=== PATIENT | female | born 1935 | race Caucasian/White ===

== ENCOUNTER → 2016-06-27 | Outpatient (CLI) | payer OTHER ==
[~2016-06-27] MED LIST: ASPEC81 PO; ATEN-173 PO; CALC500C70 PO; LISI-729 PO; MULT-614 PO; PRED1SUS3 OPL; SIMV40TA2 PO
--- NOTE | 2016-06-27 12:43 | MAMMOGRAPHY REPORT ---
BILATERAL DIGITAL SCREENING MAMMOGRAM WITH CAD: 06/27/2016 CLINICAL HISTORY: Routine screening. Patient has no complaints. TECHNIQUE: Current study was also evaluated with a Computer Aided Detection (CAD) system. Bilatera l CC and MLO views were obtained. COMPARISON: Comparison is made to exams dated: 06/25/2015 mammogram, 06/22/2013 mammogram, and 015 mammogram - [facility]. BREAST COMPOSITION: There are scattered areas of fibroglandular density in both breasts. FINDINGS: No suspicious masses, calcifications, or areas of architectural distortion are noted in e ither breast. There has been no significant interval change compared to prior exams. IMPRESSION: ACR BI-RADS CATEGORY 1: NEGATIVE There is no mammographic evidence of malignancy. A 1 year screening mammogram is recommended. The p atient will receive written notification of the results. Approximately 10% of breast cancers are not detected with mammography. A negative mammographic repor t should not delay biopsy if a clinically suggestive mass is present. Mady Peralta M.D. ah/:06/27/2016 11:57:51 Biomedical Equipment Technician: Jennifer GARCIA(R)(M), [facility] letter sent: Normal 1/2 BI-RADS Code: ACR BI-RADS Category 1: Negative
== END | disposition home or self-care (01) ==
LOC: C.MAMM 09:02
PROVIDERS: ATTEND Internal Medicine
DX: Z12.31 Encounter for screening mammogram for malignant neoplasm of breast (principal)

== ENCOUNTER → 2016-11-14 | Outpatient (CLI) | payer OTHER ==
[~2016-11-14] MED LIST changes: +AMOX875T PO; +ASPI81TA21 PO; +DIPH1TAB87 PO; +EYED OPB; +IBUP-1050 PO; +LPT40 PO; +PROP1DRO2 OPB
== END | disposition home or self-care (01) ==
LOC: C.LABBFT 08:44
PROVIDERS: ATTEND Internal Medicine Cardiovascular Disease
DX: E78.00 Pure hypercholesterolemia, unspecified (principal)

== ENCOUNTER 2017-03-18 21:37 | Observation (INO) | payer OTHER ==
[~2017-03-18] VITALS: Ht 175.3 cm; Wt 67.4 kg
[~2017-03-18 21:37] MED LIST changes: -AMOX875T PO; -ASPI81TA21 PO; -DIPH1TAB87 PO; -EYED OPB; -IBUP-1050 PO; -LPT40 PO; -PROP1DRO2 OPB
[2017-03-18] MEDS ORDERED: IBUP-1050 PO (22:29)
[2017-03-18] MEDS ORDERED: DIPH1TAB PO (22:29)
[2017-03-18] MEDS ORDERED: ASPI81TA21 PO (22:29)
[2017-03-18] MEDS ORDERED: EYED OPB (22:29)
[2017-03-18] MEDS ORDERED: LIDOCAINE/EPINEPH/TETRACAINE 1 EA SYR EXT STA (22:34)
[2017-03-18] MEDS ORDERED: XYLOCAINE 1%/SOD BICARB 20 ML VIAL INFIL ONE (22:45)
--- NOTE | 2017-03-18 22:47 | EMERGENCY ROOM VISIT NOTE ---
History Report prepared by Makeda: Cornel Hernandez Under the Supervision of: Dr. Robb Baird M.D. First contact with patient: 22:19 Chief Complaint: FALL Stated Complaint: FELL, BRUISING ON FACE History of Present Illness The patient is a 82 year old female who presents to the Emergency Room with complaints of face pain that began 2 hours ago. Per the patient's family, they were there visiting her this evening and notes that the patient was at her baseline. After they left at 1999, they got home and got a call from the patient stating that she did not remember what happened, but she fell onto her face and she was "covered in blood". She notes some diarrhea earlier today, but it was only describes as mildly loose stool. She is having some mild weakness and aches to her legs, but no major weakness. The patient states that she has no recollection of the fall. She denies any neck pain, dental pain, chest pain, pain with breathing, abdominal pain, back pain, urinary symptoms, or any other symptoms. She is not on blood thinners. She denies any history of cardiac disease or other falls. She denies blurry or double vision. Source of History: patient, family Onset: 2.5 hours ago Position: head Symptom Intensity: moderate Quality: ache Timing: constant Associated Symptoms: + diarrhea, + weakness (Mild bilateral legs), No neck pain, No chest pain, No SOB, No abdominal pain, No back pain, No melena, No hematochezia, No urinary symptoms Review of Systems See HPI for pertinent positives & negatives. A total of 10 systems reviewed and were otherwise negative. Past Medical & Surgical Medical Problems: (1) Borderline hypertension (2) Vertigo Surgical Problems: (1) History of cataract surgery Old medical records were reviewed. Nurse's notes were reviewed and I agree with. Family History Omitted secondary to the patient's age. Social History Smoking Status: Never Smoker Smokeless Tobacco Use: No Drug Use: none Marital Status: Housing Status: lives alone Occupation Status: retired Current/Historical Medications Scheduled Aspirin Enteric Coated (Ecotrin Or Generic), 81 MG PO QAM Atenolol (Tenormin), 25 MG PO QAM Calcium/Vitamin D (Os-Matt 500 Plus D), 1 TAB PO BID Diphenhydramine Hcl (Benadryl Allergy), 50 MG PO HS Eye Drops (Eye Drops), 1 DROP OPB BID Ibuprofen (Advil), 400 MG PO BID Lisinopril (Prinivil), 5 MG PO QAM Multiple Vitamins W/ Minerals (Centrum Silver Ultra Wome), 1 TAB PO QAM Simvastatin (Zocor), 40 MG PO QPM Allergies Coded Allergies: No Known Allergies (Unverified , 03/18/17) Physical Exam Vital Signs Date Time Temp Pulse Resp B/P (MAP) Pulse Ox O2 Delivery O2 Flow Rate FiO2 03/19/17 00:01 70 16 127/76 98 Room Air 03/18/17 21:46 36.4 74 20 118/51 98 Room Air Physical Exam General: Non-ill appearing older female in no acute distress who has a laceration to the left eyebrow and bruising under the left eye. HEENT: Normal cephalic. Pupils are equal round and reactive to light. Extraocular movements are intact. Bruising under the left eye, no hyphema, no inferior orbital entrapments. No proptosis. Oropharynx is pink with moist mucous membranes. No swelling of the mouth lips or tongue. Neck: Supple with a midline trachea. No meningeal signs or stiffness, no JVD or bruits. No Stridor. Chest: Clear to auscultation bilaterally. No wheezes or rhonchi. No increased work of breathing. Heart: regular rate and rhythm. Abdomen: Soft nontender, nondistended without rebound guarding or rigidity. Extremities: No cyanosis clubbing or edema. No calf tenderness or assymetry Spine/Back. Non tender to palpation. No CVA tenderness Skin: Good turgor without rashes. Neurologic exam: GCS 15. Cranial nerves two through 12 are intact. Motor and sensation are intact and symmetrical throughout. Medical Decision & Procedures ER Provider Diagnostic Interpretation: Radiology results as stated below per my review and radiologist interpretation: MAXILLOFACIAL CT WITHOUT CONTRAST CLINICAL HISTORY: Fall. COMPARISON STUDY: None. TECHNIQUE: A maxillofacial CT was performed without IV contrast. Coronal and sagittal reformats were viewed. A dose lowering technique was utilized adhering to the principles of ALARA. FINDINGS: There is moderate left orbital gas. There is no significant retrobulbar hematoma and the globes are intact. Intraorbital contusion is noted. There is hemorrhage within the left maxillary sinus. Comminuted, mildly displaced fracture of the left orbital floor is noted. No herniation of orbital contents is noted. There is no mandibular fracture. There is an acute fracture of the left zygomatic arch which is displaced 5 mm. Mildly displaced comminuted fractures of the lateral and medial nevarez of the left orbit are noted as well as fractures of the anterior, posterior and medial nevarez of the left maxillary sinus. The pterygoid plates are intact. Cervical spine CT will be reported separately. There is no hydrocephalus. IMPRESSION: Extensive left orbital trauma, including moderate orbital gas with no significant retrobulbar hematoma. Globe intact. Mildly displaced, comminuted left orbital floor fracture with displaced fractures of the medial and lateral nevarez of the left orbit, anterior, posterior and medial nevarez of the left maxillary sinus as well as fractures of the left zygomatic arch and left nasal bone. Electronically signed by: Minesh Weems M.D. 03/18/2017 11:17 PM Dictated Date/Time: 03/18/2017 11:[address] OF THE HEAD WITHOUT CONTRAST CLINICAL HISTORY: Fall. COMPARISON STUDY: No previous studies for comparison. TECHNIQUE: Helical axial images of the head were obtained without IV contrast. Automated exposure control was utilized for the study. A dose lowering technique was utilized adhering to the principles of ALARA. FINDINGS: No acute intracranial hemorrhage, midline shift or mass effect is present. Prominence of the extra-axial spaces is likely due to atrophy. Ventricular system is unremarkable. Basilar cisterns are patent. Hemorrhage within the left maxillary sinus is noted. There is extensive left orbital trauma with orbital gas. The left globe is intact. Left orbital floor fracture is noted. In addition, there is a fracture of the left zygomatic arch, the medial wall and lateral nevarez of the left orbit as well as the anterior, posterior and medial nevarez of the left maxillary sinus. These findings are better depicted on the maxillofacial CT. There is no calvarial fracture. IMPRESSION: 1. No acute intracranial findings. 2. No calvarial fracture. 3. Extensive left orbital trauma with orbital gas and multiple left-sided facial fractures which are better depicted on the maxillofacial CT. Please see that report for further description. Electronically signed by: Minesh Weems M.D. 03/18/2017 11:21 PM Dictated Date/Time: 03/18/2017 11:06 PM CHEST ONE VIEW PORTABLE CLINICAL HISTORY: Fall. Chest pain. COMPARISON STUDY: Chest radiograph December 30, 2010. FINDINGS: Evaluation is compromised as the patient's hands overlie the lower chest. No pneumothorax or pleural effusion is identified. Cardiomediastinal silhouette is unremarkable. No lobar consolidation is present. There is no evidence of pulmonary edema. IMPRESSION: No acute cardiopulmonary findings although evaluation of the left lower chest is compromised given patient's overlying hand. Electronically signed by: Minesh Weems M.D. 03/18/2017 11:04 PM Dictated Date/Time: 03/18/2017 11:[address] OF THE CERVICAL SPINE WITHOUT CONTRAST CLINICAL HISTORY: Fall. COMPARISON STUDY: No previous studies for comparison. TECHNIQUE: Helical axial images of the cervical spine were obtained without IV contrast. Sagittal and coronal reconstructions were viewed. A dose lowering technique was utilized adhering to the principles of ALARA. FINDINGS: Alignment of the cervical spine is anatomic. Craniocervical junction is intact. There is no prevertebral edema. There is no acute cervical spine fracture. Biapical opacities within the lungs suggest scarring. Moderate multilevel degenerative disc disease is present. There is moderate multilevel facet arthrosis. IMPRESSION: No acute cervical spine fracture or subluxation. Electronically signed by: Minesh Weems M.D. 03/18/2017 11:24 PM Dictated Date/Time: 03/18/2017 11:21 PM Laboratory Results 03/18/17 23:05 Red Blood Count 4.00, Mean Corpuscular Volume 97.3, Mean Corpuscular Hemoglobin 31.5, Mean Corpuscular Hemoglobin Concent 32.4, Mean Platelet Volume 9.7, Neutrophils (%) (Auto) 82.3, Lymphocytes (%) (Auto) 8.9, Monocytes (%) (Auto) 7.7, Eosinophils (%) (Auto) 0.7, Basophils (%) (Auto) 0.1, Neutrophils # (Auto) 11.08, Lymphocytes # (Auto) 1.19, Monocytes # (Auto) 1.03, Eosinophils # (Auto) 0.09, Basophils # (Auto) 0.01 03/18/17 23:05 Test 03/18/17 23:05 03/19/17 00:53 White Blood Count 13.44 K/uL (4.8-10.8) Red Blood Count 4.00 M/uL (4.2-5.4) Hemoglobin 12.6 g/dL (12.0-16.0) Hematocrit 38.9 % (37-47) Mean Corpuscular Volume 97.3 fL (80-100) Mean Corpuscular Hemoglobin 31.5 pg (25-34) Mean Corpuscular Hemoglobin Concent 32.4 g/dl (32-36) Platelet Count 261 K/uL (130-400) Mean Platelet Volume 9.7 fL (7.4-10.4) Neutrophils (%) (Auto) 82.3 % Lymphocytes (%) (Auto) 8.9 % Monocytes (%) (Auto) 7.7 % Eosinophils (%) (Auto) 0.7 % Basophils (%) (Auto) 0.1 % Neutrophils # (Auto) 11.08 K/uL (1.4-6.5) Lymphocytes # (Auto) 1.19 K/uL (1.2-3.4) Monocytes # (Auto) 1.03 K/uL (0.11-0.59) Eosinophils # (Auto) 0.09 K/uL (0-0.5) Basophils # (Auto) 0.01 K/uL (0-0.2) RDW Standard Deviation 44.5 fL (36.4-46.3) RDW Coefficient of Variation 12.5 % (11.5-14.5) Immature Granulocyte % (Auto) 0.3 % Immature Granulocyte # (Auto) 0.04 K/uL (0.00-0.02) Anion Gap 10.0 mmol/L (3-11) Est Creatinine Clear Calc Drug Dose 52.3 ml/min Estimated GFR () 71.9 Estimated GFR (Non- 62.1 BUN/Creatinine Ratio 25.4 (10-20) Calcium Level 9.6 mg/dl (8.5-10.1) Total Bilirubin 0.7 mg/dl (0.2-1) Direct Bilirubin 0.1 mg/dl (0-0.2) Aspartate Amino Transf (AST/SGOT) 21 U/L (15-37) Alanine Aminotransferase (ALT/SGPT) 23 U/L (12-78) Alkaline Phosphatase 26 U/L (45-117) Total Protein 7.5 gm/dl (6.4-8.2) Albumin 3.6 gm/dl (3.4-5.0) Lipase 175 U/L (73-393) Laboratory studies as stated above per my review. Medications Administered Medications (Trade) Dose Ordered Sig/Capo Route Start Time Stop Time Status Last Admin Dose Admin Tetracaine/ Epinephrine/ Lidocaine (L.e.t. Gel 4%/ 1:100/0.5%) 1 ea NOW STAT EXT 03/18/17 22:34 03/18/17 22:40 DC 03/18/17 22:34 1 EA Diphtheria/ Pertussis/Tetanus Vacc (Adacel Inj) 0.5 ml ONCE ONCE IM. 03/19/17 00:15 03/19/17 00:16 DC 03/19/17 00:19 0.5 ML ECG Indication: syncope Rate (beats per minute): 70 Rhythm: normal sinus Findings: nonspecific-ST abn, other (Nonspecific t-wave abnormality) ED Course 2218: Past medical records reviewed. The patient was evaluated in room C12B, and a complete history and physical examination were performed. 4: Ordered Tetracaine/Epinephrine/Lidocaine 1 ea EXT 2245: Ordered Lidocaine HCl 20 ml INFIL 0000: Upon reevaluation, the patient is resting. I discussed the results and treatment plan with the patient. She verbalized agreement of the treatment plan. The patient will be evaluated for further management. 0020: Amor Banegas PA-C completed her laceration repair. Please see his note for more information. Medical Decision Differentials include, but are not limited to; concussion, head injury, syncope , cardiac disease, arrhythmia, laceration, ICH, and electrolyte or metabolic abnormality. This patient comes in as described above she had an episode where she had syncope and hit her face. She does not recall anything about the episode she has a large hematoma under her left eye. The eye itself looks okay there is no proptosis. There is a round pupil. There is no hyphema . She denies any visual complaints. There is intact ocular movements. There is nothing clinically to suggest inferior orbital rectus entrapment. Multiple blood testing was obtained. CAT scan of her head neck and face were obtained. There are no definite acute intracranial abnormalities or cervical abnormalities. There is extensive orbital fracture on the left. I did review the findings with Dr. Tran and he felt they could follow up with her and she denied any acute treatment tonight. EKG does not show any definite acute ischemic changes. There are no significant electrolyte or metabolic abnormalities. She will be admitted for further treatment and evaluations for her syncope and facial fractures. Head Trauma GCS Score: 15 Medication Reconcilliation Current Medication List: was personally reviewed by me Blood Pressure Screening Patient's blood pressure: Normal blood pressure Blood pressure disposition: Did not require urgent referral Impression Primary Impression: Syncope Additional Impressions: Fall Orbital fracture Facial fracture Scribe Attestation The scribe's documentation has been prepared under my direction and personally reviewed by me in its entirety. I confirm that the note above accurately reflects all work, treatment, procedures, and medical decision making performed by me. Departure Information Dispostion Being Evaluated By Hospitalist Referrals Jeanmarie Elizalde M.D. (PCP) Patient Instructions My [facility] Problem Qualifiers
--- NOTE | 2017-03-18 23:06 | DIAGNOSTIC IMAGING REPORT ---
CHEST ONE VIEW PORTABLE CLINICAL HISTORY: Fall. Chest pain. COMPARISON STUDY: Chest radiograph December 30, 2010. FINDINGS: Evaluation is compromised as the patient's hands overlie the lower chest. No pneumothorax or pleural effusion is identified. Cardiomediastinal silhouette is unremarkable. No lobar consolidation is present. There is no evidence of pulmonary edema. IMPRESSION: No acute cardiopulmonary findings although evaluation of the left lower chest is compromised given patient's overlying hand. Electronically signed by: Minesh Weems M.D. 03/18/2017 11:04 PM Dictated Date/Time: 03/18/2017 11:02 PM
--- NOTE | 2017-03-18 23:18 | DIAGNOSTIC IMAGING REPORT ---
MAXILLOFACIAL CT WITHOUT CONTRAST CLINICAL HISTORY: Fall. COMPARISON STUDY: None. TECHNIQUE: A maxillofacial CT was performed without IV contrast. Coronal and sagittal reformats were viewed. A dose lowering technique was utilized adhering to the principles of ALARA. FINDINGS: There is moderate left orbital gas. There is no significant retrobulbar hematoma and the globes are intact. Intraorbital contusion is noted. There is hemorrhage within the left maxillary sinus. Comminuted, mildly displaced fracture of the left orbital floor is noted. No herniation of orbital contents is noted. There is no mandibular fracture. There is an acute fracture of the left zygomatic arch which is displaced 5 mm. Mildly displaced comminuted fractures of the lateral and medial nevarez of the left orbit are noted as well as fractures of the anterior, posterior and medial nevarez of the left maxillary sinus. The pterygoid plates are intact. Cervical spine CT will be reported separately. There is no hydrocephalus. IMPRESSION: Extensive left orbital trauma, including moderate orbital gas with no significant retrobulbar hematoma. Globe intact. Mildly displaced, comminuted left orbital floor fracture with displaced fractures of the medial and lateral nevarez of the left orbit, anterior, posterior and medial nevarez of the left maxillary sinus as well as fractures of the left zygomatic arch and left nasal bone. Electronically signed by: Minesh Weems M.D. 03/18/2017 11:17 PM Dictated Date/Time: 03/18/2017 11:09 PM
--- NOTE | 2017-03-18 23:22 | DIAGNOSTIC IMAGING REPORT ---
CT OF THE HEAD WITHOUT CONTRAST CLINICAL HISTORY: Fall. COMPARISON STUDY: No previous studies for comparison. TECHNIQUE: Helical axial images of the head were obtained without IV contrast. Automated exposure control was utilized for the study. A dose lowering technique was utilized adhering to the principles of ALARA. FINDINGS: No acute intracranial hemorrhage, midline shift or mass effect is present. Prominence of the extra-axial spaces is likely due to atrophy. Ventricular system is unremarkable. Basilar cisterns are patent. Hemorrhage within the left maxillary sinus is noted. There is extensive left orbital trauma with orbital gas. The left globe is intact. Left orbital floor fracture is noted. In addition, there is a fracture of the left zygomatic arch, the medial wall and lateral nevarez of the left orbit as well as the anterior, posterior and medial nevarez of the left maxillary sinus. These findings are better depicted on the maxillofacial CT. There is no calvarial fracture. IMPRESSION: 1. No acute intracranial findings. 2. No calvarial fracture. 3. Extensive left orbital trauma with orbital gas and multiple left-sided facial fractures which are better depicted on the maxillofacial CT. Please see that report for further description. Electronically signed by: Minesh Weems M.D. 03/18/2017 11:21 PM Dictated Date/Time: 03/18/2017 11:06 PM
--- NOTE | 2017-03-18 23:26 | DIAGNOSTIC IMAGING REPORT ---
CT OF THE CERVICAL SPINE WITHOUT CONTRAST CLINICAL HISTORY: Fall. COMPARISON STUDY: No previous studies for comparison. TECHNIQUE: Helical axial images of the cervical spine were obtained without IV contrast. Sagittal and coronal reconstructions were viewed. A dose lowering technique was utilized adhering to the principles of ALARA. FINDINGS: Alignment of the cervical spine is anatomic. Craniocervical junction is intact. There is no prevertebral edema. There is no acute cervical spine fracture. Biapical opacities within the lungs suggest scarring. Moderate multilevel degenerative disc disease is present. There is moderate multilevel facet arthrosis. IMPRESSION: No acute cervical spine fracture or subluxation. Electronically signed by: Minesh Weems M.D. 03/18/2017 11:24 PM Dictated Date/Time: 03/18/2017 11:21 PM
[2017-03-18 23:35] LABS: BASO % 0.1 %; BASO ABS # 0.01 K/uL (0-0.2); COMPLETE YES; EOS % 0.7 %; HEMATOCRIT 38.9 % (37-47); IG% 0.3 %; LYMPH % 8.9 %; LYMPH ABS # 1.19 K/uL (1.2-3.4); MEAN CELL VOLUME 97.3 fL (80-100); MEAN CORPUSCULAR HEMOGLOBIN 31.5 pg (25-34); MEAN CORPUSCULAR HGB CONC 32.4 g/dl (32-36); MEAN PLATELET VOLUME 9.7 fL (7.4-10.4); MONO % 7.7 %; NEUT % 82.3 %; PLATELET COUNT 261 K/uL (130-400); WHITE BLOOD COUNT 13.44 K/uL (4.8-10.8)
[2017-03-18 23:54] LABS: BUN/CREATININE RATIO 25.4 (10-20); CALCIUM 9.6 mg/dl (8.5-10.1); CREATININE 0.88 mg/dl (0.60-1.20); POTASSIUM 3.9 mmol/L (3.5-5.1)
[2017-03-19] VITALS (8 sets, daily range): BP systolic 110–152; BP diastolic 60–78; PULSE 58–80; TEMP 36.6–36.9; O2SAT 95–99; Ht 175.3 cm; Wt 67.4 kg
[2017-03-19] MEDS ORDERED: DIPHTHERIA/TETANUS/PERTUSSIS 0.5 ML SYR/VIAL IM. ONE (00:15)
--- NOTE | 2017-03-19 00:28 | History and Physical ---
History & Physical Date & Time of Service: Mar 19, 2017 at 00:23 Chief Complaint: Fell, Bruising On Face Primary Care Physician: Jeanmarie Elizalde M.D. History of Present Illness Source: patient 82 y/o F Hx HTN, HPL - was in her normal state of health today per family who had left her house at 8pm. Shortly after, they received a call from the pt indicating that she had probably passed out and landed directly on her face. Her face was covered with blood and she had significant pain and bruising around her L orbit. She had no recollection of what transpired prior to finding herself on the floor. On arrival to the ER a CT head revealed displaced, comminuted left orbital floor fracture with displaced fractures of the medial and lateral nevarez of the left orbit, anterior, posterior and medial nevarez of the left maxillary sinus as well as fractures of the left zygomatic arch and left nasal bone. She denies CP, SOB, N/V or dysuria. She has no prior history of syncope or significant arrhythmias. She was placed on Atenolol by her chain builder loom control due to frequent PVCs and palpitations. Past Medical/Surgical History Medical Problems: (1) Borderline hypertension Status: Chronic (2) Vertigo Status: Chronic 3) Hyperlipidemia 4) Frequent PVCs - complaints of palpitations Surgical Problems: (1) History of cataract surgery Status: Resolved Family History Noncontributory Social History Smoking Status: Never Smoker Smokeless Tobacco Use: No Drug Use: none Marital Status: Occupational Status: retired Multi-Drug Resistant Organisms History of MDRO: No Allergies Coded Allergies: No Known Allergies (Unverified , 03/18/17) Home Medications Scheduled Aspirin Enteric Coated (Ecotrin Or Generic), 81 MG PO QAM Atenolol (Tenormin), 25 MG PO QAM Calcium/Vitamin D (Os-Matt 500 Plus D), 1 TAB PO BID Diphenhydramine Hcl (Benadryl Allergy), 50 MG PO HS Eye Drops (Eye Drops), 1 DROP OPB BID Ibuprofen (Advil), 400 MG PO BID Lisinopril (Prinivil), 5 MG PO QAM Multiple Vitamins W/ Minerals (Centrum Silver Ultra Wome), 1 TAB PO QAM Simvastatin (Zocor), 40 MG PO QPM Review of Systems Constitutional: No fever, No chills, No sweats Eyes: No worsening of vision ENT: + problem reported (Facial pain as above - L periorbital bruising), No hearing loss, No unusual epistaxis Respiratory: No cough, No sputum, No wheezing Cardiovascular: No chest pain, No orthopnea, No PND Musculoskeletal: No joint pain Genitourinary - Female: No dysuria, No urinary frequency, No urinary urgency Neurologic: No memory loss, No paralysis, No weakness Psychiatric: No depression symptoms Endocrine: No fatigue Hematologic / Lymphatic: No abnormal bleeding/bruising Integumentary: No rash Allergic / Immunologic: No environmental allergies Physical Exam Vital Signs Date Time Temp Pulse Resp B/P (MAP) Pulse Ox O2 Delivery O2 Flow Rate FiO2 03/19/17 00:01 70 16 127/76 98 Room Air 03/18/17 21:46 36.4 74 20 118/51 98 Room Air General Appearance: WD/WN, no apparent distress Head: normocephalic Eyes: normal inspection, EOMI ENT: pharynx normal, + pertinent finding (Extensive L periorbital bruising - laceration below L orbit is stitched ) Neck: supple, no JVD Respiratory/Chest: chest non-tender, lungs clear, normal breath sounds Cardiovascular: regular rate, rhythm, no edema, no gallop, no JVD, no murmur, normal peripheral pulses Abdomen/GI: normal bowel sounds, non tender, soft Back: normal inspection, no CVA tenderness, no muscle spasm, normal range of motion Extremities/Musculoskelatal: normal inspection, no calf tenderness, normal capillary refill, no pedal edema, normal range of motion Neurologic/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: 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, no motor/sensory deficits, alert, oriented x 3 Skin: normal color, warm/dry Diagnostics Laboratory Results Results Past 24 Hours Test 03/18/17 23:05 Range/Units White Blood Count 13.44 4.8-10.8 K/uL Red Blood Count 4.00 4.2-5.4 M/uL Hemoglobin 12.6 12.0-16.0 g/dL Hematocrit 38.9 37-47 % Mean Corpuscular Volume 97.3 80-100 fL Mean Corpuscular Hemoglobin 31.5 25-34 pg Mean Corpuscular Hemoglobin Concent 32.4 32-36 g/dl Platelet Count 261 130-400 K/uL Mean Platelet Volume 9.7 7.4-10.4 fL Neutrophils (%) (Auto) 82.3 % Lymphocytes (%) (Auto) 8.9 % Monocytes (%) (Auto) 7.7 % Eosinophils (%) (Auto) 0.7 % Basophils (%) (Auto) 0.1 % Neutrophils # (Auto) 11.08 1.4-6.5 K/uL Lymphocytes # (Auto) 1.19 1.2-3.4 K/uL Monocytes # (Auto) 1.03 0.11-0.59 K/uL Eosinophils # (Auto) 0.09 0-0.5 K/uL Basophils # (Auto) 0.01 0-0.2 K/uL RDW Standard Deviation 44.5 36.4-46.3 fL RDW Coefficient of Variation 12.5 11.5-14.5 % Immature Granulocyte % (Auto) 0.3 % Immature Granulocyte # (Auto) 0.04 0.00-0.02 K/uL Sodium Level 140 136-145 mmol/L Potassium Level 3.9 3.5-5.1 mmol/L Chloride Level 102 98-107 mmol/L Carbon Dioxide Level 28 21-32 mmol/L Anion Gap 10.0 3-11 mmol/L Blood Urea Nitrogen 22 7-18 mg/dl Creatinine 0.88 0.60-1.20 mg/dl Est Creatinine Clear Calc Drug Dose 52.3 ml/min Estimated GFR () 71.9 Estimated GFR (Non- 62.1 BUN/Creatinine Ratio 25.4 10-20 Random Glucose 151 70-99 mg/dl Calcium Level 9.6 8.5-10.1 mg/dl Total Bilirubin 0.7 0.2-1 mg/dl Direct Bilirubin 0.1 0-0.2 mg/dl Aspartate Amino Transf (AST/SGOT) 21 15-37 U/L Alanine Aminotransferase (ALT/SGPT) 23 12-78 U/L Alkaline Phosphatase 26 45-117 U/L Total Protein 7.5 6.4-8.2 gm/dl Albumin 3.6 3.4-5.0 gm/dl Lipase 175 73-393 U/L Diagnostic Radiology CT cervical spine: No acute cervical spine fracture or subluxation. CT head: 1. No acute intracranial findings. 2. No calvarial fracture. 3. Extensive left orbital trauma with orbital gas and multiple left-sided facial fractures. CT Maxillofacial: Extensive left orbital trauma, including moderate orbital gas with no significant retrobulbar hematoma. Globe intact. Mildly displaced, comminuted left orbital floor fracture with displaced fractures of the medial and lateral nevarez of the left orbit, anterior, posterior and medial nevarez of the left maxillary sinus as well as fractures of the left zygomatic arch and left nasal bone. Impression Assessment and Plan 82 y/o F Hx HTN, HPL - was in her normal state of health today per family who had left her house at 8pm. Shortly after, they received a call from the pt indicating that she had probably passed out and landed directly on her face. Her face was covered with blood and she had significant pain and bruising around her L orbit. She had no recollection of what transpired prior to finding herself on the floor. On arrival to the ER a CT head revealed displaced, comminuted left orbital floor fracture with displaced fractures of the medial and lateral nevarez of the left orbit, anterior, posterior and medial nevarez of the left maxillary sinus as well as fractures of the left zygomatic arch and left nasal bone. She denies CP, SOB, N/V or dysuria. She has no prior history of syncope or significant arrhythmias. She was placed on Atenolol by her chain builder loom control due to frequent PVCs and palpitations. 1) Syncope - will monitor on telemetry, will order a troponin as this may indicate a ventricular arrhythmia if elevated. As she has no recollection of syncope and did not apparently have any preceding symptoms, she may benefit from an ambulatory monitor and we should likely contact her chain builder loom control prior to DC. Cont Atenolol. 2) Head trauma and facial/orbital fractures. Er MD had consulted surgery to review imaging. She is unlikely to require intervention. We will consult maxillofacial surgery AM. 3) HTN, HPL - Cont Atenolol, Lisinopril, Statin - The pt's CT was referred to both in house radiology and the [facility] service - there is a discrepancy between the 2 studies and on the [facility] read there is concern for a small subdural hematoma - we will obtain a repeat CT AM to clarify and insure there is no expansion taking place. Full code - SCDs Total time for this admit including review of labs, meds, records - discussion with pt , family , ER attending - 35 min Level of Care Telemetry Resuscitation Status FULL RESUSCITATION VTE Prophylaxis Given or contraindicated: SCD's
--- NOTE | 2017-03-19 00:53 | EMERGENCY ROOM VISIT NOTE ---
ED Visit Note Emergency Department Procedure Note I was asked to see Mr. Snow by Dr. Robb Baird, emergency medicine, for repair of a left eyebrow laceration she sustained in a fall. Please see Dr. Baird's notes and orders for full information about her ED visit. Wound Repair: Complexity: Basic Description: 2.8 cm full-thickness laceration through the left upper eyebrow. No active bleeding. Verbal consent was obtained after the risks and benefits were explained. Wound edges were anesthetized with LET gel. The skin was prepped with betadine and a sterile field set. The wound was explored for foreign bodies and none found. Copious irrigation was performed using sterile saline. With direct pressure the bleeding subsided. Debridement was not performed. The wound edges were approximated using 6-0 Ethilon with 8 simple interrupted sutures. Hemostasis and excellent approximation was achieved. Antibacterial ointment and a sterile dressing applied. No complications and the patient tolerated the procedure well.
[2017-03-19] MEDS ORDERED: ALUMINUM/MAGNESIUM/SIMETH (MAALOX MAX) 30 ML UDC PO PRN (01:00)
[2017-03-19] MEDS ORDERED: NSS + 20MEQ KCL 1000ML 1,000 ML IV SCH (01:00)
[2017-03-19] MEDS ORDERED: ONDANSETRON INJ 2 MG/ML 2 ML VIAL IV PRN (01:00)
[2017-03-19] MEDS ORDERED: MAGNESIUM HYDROXIDE SUSP 30 ML UDC PO PRN (01:00)
[2017-03-19] MEDS ORDERED: ACETAMINOPHEN 325 MG TAB PO PRN (01:00)
[2017-03-19] MEDS ORDERED: POLYETHYLENE (MIRALAX) 17 GM PACK PO PRN (01:00)
[2017-03-19 02:54] LABS: MAGNESIUM 1.9 mg/dl (1.8-2.4)
[2017-03-19] MEDS ORDERED: IV FLUIDS COMPLETED PRN (05:15)
--- NOTE | 2017-03-19 08:01 | DIAGNOSTIC IMAGING REPORT ---
CT HEAD WITHOUT CONTRAST (CT) CLINICAL HISTORY: Subdural hematoma. Follow-up examination. COMPARISON STUDY: 03/18/2017 TECHNIQUE: Axial CT of the brain is performed from the vertex to the skull base. IV contrast was not administered for this examination. A dose lowering technique was utilized adhering to the principles of ALARA. CT DOSE: 537.48 mGy.cm FINDINGS: No intra or extra-axial mass lesions are visualized. There is no CT evidence of acute cortical infarction. There is no evidence of midline shift. There is no acute hemorrhage. There is asymmetric extra-axial space similar to the preceding study. While likely secondary to atrophy, a chronic subdural hygroma could appear similar. There are patchy white matter hypodensities likely on a small vessel basis. There is no evidence of pathologic ventricular dilatation. There is opacification of the left maxilla sinus. Multiple left maxilla sinus fractures are visualized. There is a left zygomatic arch fracture. There is a left orbital floor fracture. 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 IMPRESSION: 1. No acute intracranial findings 2. Left-sided facial fractures with opacification of the left maxillary sinus, left orbital floor fracture, fractures of the zygomatic arch, lateral wall the left orbit, and anterior and lateral nvearez of left maxillary sinus. Electronically signed by: Gary Hughes M.D. 03/19/2017 8:00 AM Dictated Date/Time: 03/19/2017 7:56 AM
--- NOTE | 2017-03-19 08:41 | ECHOCARDIOGRAM REPORT ---
*NOTICE TO RECEIVING [employer] This information is strictly Confidential and protected under [place] law. [place] law prohibits you from making any further disclosure of this information unless further disclosure is expressly permitted by the written consent of the person to whom it pertains or is authorized by law. A general authorization for the release of medical or other information is not sufficient for this purpose. Hospital accepts no responsibility if the information is made available to any other person, INCLUDING THE PATIENT. Interpretation Summary * Name: RAUL REICH Study Date: 03/19/2017 06:57 AM BP: 110/60 mmHg * Patient Location: C.2T\S\S229\S\1 HR: 58 * : 1935 (M/d/yyyy) Gender: Female Height: 69 in * Age: 82 yrs Ethnicity: CA Weight: 143 lb * Ordering Physician: Deep Padilla * Referring Physician: Self, Referred * Performed By: Sol Gonzalez RDCS * * Reason For Study: SYNCOPE * BSA: 1.8 m2 * -- Conclusions -- * 1. Normal LV size, mild concentric LVH. * 2. Normal LV systolic function. LVEF 65-70%. No regional wall motion abnormalities. * 3. Normal RV size and function. * 4. Possible bicuspid aortic valve with mild to moderate aortic regurgitation. * 5. Mild mitral regurgitation. * 6. Grade II diastolic dysfunction. * 7. Mild pulmonary hypertension. Est PASP 40-45 mmHg. Normal estimated CVP. * 8. No prior studies for comparison. Procedure Details * A complete two-dimensional transthoracic echocardiogram was performed (2D, M-mode, Doppler and color flow Doppler). Left Ventricle * The left ventricle is grossly normal size. * There is mild concentric left ventricular hypertrophy. * Ejection Fraction = 65-70%. * No regional wall motion abnormalities noted. Right Ventricle * The right ventricle is grossly normal size. * The right ventricular systolic function is normal as assessed by tricuspid annular plane systolic excursion (TAPSE) (normal >1.5 cm). Atria * Borderline left atrial enlargement. * Borderline right atrial enlargement. * No ASD detected; PFO is not assessed. Mitral Valve * The mitral valve is grossly normal. * There is no mitral valve stenosis. * There is mild mitral regurgitation. Tricuspid Valve * The tricuspid valve is not well visualized, but is grossly normal. * There is no tricuspid stenosis. * There is trace tricuspid regurgitation. * Right ventricular systolic pressure is elevated at 40-50mmHg. Aortic Valve * The aortic valve opens well. * A bicuspid aortic valve cannot be excluded. * Mild to moderate aortic regurgitation. Pulmonic Valve * The pulmonary valve is inadequately visualized, but the Doppler data is adequate for interpretation. * There is no pulmonic valvular stenosis. * Trace pulmonic valvular regurgitation. Great Vessels * The aortic root and proximal ascending aorta are normal sized. Pericardium/Pleural * There is no pericardial effusion. Great Vessels * Normal inferior vena cava size and collapsability with sniff indicates a normal right atrial pressure of 3 mmHg Left Ventricular Diastolic Function * Diastolic dysfunction, Grade II (pseudonormalization pattern). MMode 2D Measurements and Calculations IVSd 1.2 cm IVSs 1.6 cm LVIDd 4.3 cm LVIDs 2.9 cm LVPWd 0.95 cm LVPWs 1.2 cm IVS/LVPW 1.3 FS 31.7 % EDV(Teich) 82.1 ml ESV(Teich) 32.9 ml EF(Teich) 60.0 % EDV(cubed) 78.4 ml ESV(cubed) 25.0 ml EF(cubed) 68.1 % % IVS thick 33.4 % % LVPW thick 29.2 % LV mass(C)d 157.9 grams LV mass(C)dI 88.2 grams/m\S\2 LV mass(C)s 139.6 grams LV mass(C)sI 78.0 grams/m\S\2 SV(Teich) 49.3 ml SI(Teich) 27.5 ml/m\S\2 SV(cubed) 53.4 ml SI(cubed) 29.8 ml/m\S\2 Ao root diam 2.9 cm Ao root area 6.6 cm\S\2 LA dimension 4.0 cm LA/Ao 1.4 LVAd ap4 23.6 cm\S\2 LVLd ap4 8.1 cm EDV(MOD-sp4) 60.7 ml EDV(sp4-el) 58.7 ml LVAs ap4 12.3 cm\S\2 LVLs ap4 6.1 cm ESV(MOD-sp4) 22.3 ml ESV(sp4-el) 20.9 ml EF(MOD-sp4) 63.3 % EF(sp4-el) 64.4 % LVAd ap2 24.3 cm\S\2 LVLd ap2 7.5 cm EDV(MOD-sp2) 65.1 ml EDV(sp2-el) 66.9 ml LVAs ap2 12.4 cm\S\2 LVLs ap2 5.9 cm ESV(MOD-sp2) 22.3 ml ESV(sp2-el) 22.2 ml EF(MOD-sp2) 65.7 % EF(sp2-el) 66.9 % LVLd %diff -7.80 % EDV(MOD-bp) 64.1 ml LVLs %diff -4.26 % ESV(MOD-bp) 21.6 ml EF(MOD-bp) 66.4 % SV(MOD-sp4) 38.4 ml SI(MOD-sp4) 21.4 ml/m\S\2 SV(MOD-sp2) 42.8 ml SI(MOD-sp2) 23.9 ml/m\S\2 SV(MOD-bp) 42.6 ml SI(MOD-bp) 23.8 ml/m\S\2 SV(sp4-el) 37.8 ml SI(sp4-el) 21.1 ml/m\S\2 SV(sp2-el) 44.8 ml SI(sp2-el) 25.0 ml/m\S\2 Doppler Measurements and Calculations MV E max linaa 85.9 cm/sec MV A max liana 56.8 cm/sec MV E/A 1.5 MV dec time 0.19 sec Ao V2 max 147.7 cm/sec Ao max PG 8.7 mmHg Ao max PG (full) 3.0 mmHg AI max liana 438.2 cm/sec AI max PG 76.8 mmHg AI dec slope 321.4 cm/sec\S\2 AI P1/2t 399.3 msec LV V1 max PG 5.7 mmHg LV V1 max 119.8 cm/sec TR max liana 293.3 cm/sec
[2017-03-19] MEDS ORDERED: LISINOPRIL 5 MG TAB PO SCH (09:00)
--- NOTE | 2017-03-19 12:52 | Cardiology Consultation ---
Cardiology Consultation Date of Consultation: Mar 19, 2017. Requesting Physician: Dr Padilla Reason for Consultation: Syncope Pt evaluation today including: conversation w/ patient, conversation w/ family , physical exam, lab review, review of studies History of Present Illness This is a very pleasant 82-year-old woman who is followed by Dr. Fofana in our office for valvular heart disease. She presented with an episode of syncope with facial injury. She does have a history of hypercholesterolemia, hypertension and palpitations, she has premature atrial beats. She also has aortic insufficiency and a possible bicuspid aortic valve. She has no memory of the event, she doesn't recall exactly what she was doing before she fell in her hallway but recalls that she was getting ready to go to bed. She doesn't recall whether she was going to the bathroom or coming from the bathroom, her daughter tells me that based on the arrangement of her house that she probably was coming out of the bathroom but she doesn't recall it. The only thing she remembers about the incident was waking up on the floor with no memory of hitting the floor and noting that there was a lot of blood on the floor. She then called her daughter and was brought to the emergency room. She has had no prior syncopal events, she does get momentary lightheadedness from time to time that lasts a few minutes and she does have an occasional episode of vertigo (which is the room spinning), often in bed, but she doesn't remember any of these sensations at the time of this fall. She does have a history of palpitations which have been identified as premature atrial beats, however she does not recall anything unusual about them at the time of this event. Since admission to the hospital she has felt well and has had no lightheadedness or dizziness and is not having much the way of palpitations. She has had no chest discomfort throughout this. Past Medical/Surgical History Hypercholesterolemia Hypertension Premature atrial beats Social History Smoking Status: Never Smoker History of Alcohol Use: No Review of Systems Constitutional: No fever, No weight loss, No weakness Respiratory: No cough, No wheezing, No shortness of breath, No dyspnea on exertion Cardiac: + see HPI, + palpitations, + problem reported (syncope), No chest pain , No orthopnea, No PND, No edema Abdomen: No pain, No nausea, No vomiting, No diarrhea, No GI bleeding Female : No problem reported Neurologic: No paralysis, No weakness, No numbness/tingling, No balance problems Heme: No abnormal bleeding/bruising, No clotting problems Endo: No fatigue Skin: No problem reported All Other Systems: Reviewed and Negative Allergies Coded Allergies: No Known Allergies (Unverified , 03/18/17) Medications Current Inpatient Medications Medications (Trade) Dose Ordered Sig/Capo Route Start Time Stop Time Status Last Admin Dose Admin Acetaminophen (Tylenol Tab) 650 mg Q4H PRN PO 03/19/17 01:00 04/18/17 00:59 Al Hydrox/Mg Hydrox/Simethicone (Maalox Max Susp) 15 ml Q4H PRN PO 03/19/17 01:00 04/18/17 00:59 Magnesium Hydroxide (Milk Of Magnesia Susp) 30 ml Q12H PRN PO 03/19/17 01:00 04/18/17 00:59 Ondansetron HCl (Zofran Inj) 4 mg Q6H PRN IV 03/19/17 01:00 04/18/17 00:59 Polyethylene (Miralax Powder Packet) 17 gm DAILY PRN PO 03/19/17 01:00 04/18/17 00:59 Atenolol (Tenormin Tab) 25 mg QAM PO 03/19/17 09:00 04/18/17 08:59 03/19/17 08:14 25 MG Lisinopril (Zestril Tab) 5 mg QAM PO 03/19/17 09:00 04/18/17 08:59 03/19/17 08:14 5 MG Simvastatin (Zocor Tab) 40 mg QPM PO 03/19/17 21:00 04/18/17 20:59 Miscellaneous (Iv Fluids Completed) 1 ea PRN PRN N/A 03/19/17 05:15 03/19/18 05:14 Physical Exam Vital Signs Past 12 Hours Date Time Temp Pulse Resp B/P (MAP) Pulse Ox O2 Delivery O2 Flow Rate FiO2 03/19/17 11:11 () 97 03/19/17 11:02 36.9 63 18 124/64 (84) 99 Room Air 03/19/17 08:00 Room Air 03/19/17 07:04 36.7 63 16 125/65 (85) 99 Room Air 03/19/17 04:17 36.6 58 18 110/60 (77) 99 Room Air 03/19/17 04:00 99 Room Air 03/19/17 01:22 36.9 72 18 151/65 99 Room Air Constitutional: General Apperance: heathly-appearing Level of Distress: NAD Psychiatric: Mental Status: active & alert Head: normocephalic Eyes: EOM: EOMI ENMT: normal ENT inspection, hearing grossly normal Neck: supple, no masses Lungs: Respiratory effort: no dyspnea, good air movement Auscultation: breath sounds normal, no wheezing Cardiovascular: Heart Auscultation: RRR, no murmurs, no rubs, no gallops Peripheral Pulses: Bruits: none appreciated Abdomen: Bowel Sounds: normal Inspection & Palpation: soft, no tenderness, guarding & rebound, no masses Musculoskeletal: normal strength (5/5 throughout) Extremities: no edema Neurologic: Cranial Nerves: grossly intact Sensation: grossly intact Data Laboratory Results: Last 24 Hours Test 03/18/17 23:05 03/18/17 23:16 03/19/17 02:07 White Blood Count 13.44 K/uL Red Blood Count 4.00 M/uL Hemoglobin 12.6 g/dL Hematocrit 38.9 % Mean Corpuscular Volume 97.3 fL Mean Corpuscular Hemoglobin 31.5 pg Mean Corpuscular Hemoglobin Concent 32.4 g/dl Platelet Count 261 K/uL Mean Platelet Volume 9.7 fL Neutrophils (%) (Auto) 82.3 % Lymphocytes (%) (Auto) 8.9 % Monocytes (%) (Auto) 7.7 % Eosinophils (%) (Auto) 0.7 % Basophils (%) (Auto) 0.1 % Neutrophils # (Auto) 11.08 K/uL Lymphocytes # (Auto) 1.19 K/uL Monocytes # (Auto) 1.03 K/uL Eosinophils # (Auto) 0.09 K/uL Basophils # (Auto) 0.01 K/uL RDW Standard Deviation 44.5 fL RDW Coefficient of Variation 12.5 % Immature Granulocyte % (Auto) 0.3 % Immature Granulocyte # (Auto) 0.04 K/uL Sodium Level 140 mmol/L Potassium Level 3.9 mmol/L Chloride Level 102 mmol/L Carbon Dioxide Level 28 mmol/L Anion Gap 10.0 mmol/L Blood Urea Nitrogen 22 mg/dl Creatinine 0.88 mg/dl Est Creatinine Clear Calc Drug Dose 52.3 ml/min Estimated GFR () 71.9 Estimated GFR (Non- 62.1 BUN/Creatinine Ratio 25.4 Random Glucose 151 mg/dl Calcium Level 9.6 mg/dl Total Bilirubin 0.7 mg/dl Direct Bilirubin 0.1 mg/dl Aspartate Amino Transf (AST/SGOT) 21 U/L Alanine Aminotransferase (ALT/SGPT) 23 U/L Alkaline Phosphatase 26 U/L Total Protein 7.5 gm/dl Albumin 3.6 gm/dl Lipase 175 U/L Bedside Troponin I < 0.030 ng/ml Magnesium Level 1.9 mg/dl Troponin I < 0.015 ng/ml Imaging: An echocardiogram done this admission shows normal left ventricular size and function with no wall motion or maladies and mild concentric left ventricular hypertrophy. There is a possible bicuspid aortic valve with mild to moderate aortic insufficiency. Mild mitral regurgitation. EKG: An electrocardiogram shows sinus rhythm at 70 bpm, minor nonspecific ST-T abnormalities. Telemetry reviewed: Sinus rhythm with rare premature atrial beats. Assessment & Plan 1. Syncope: The cause of this is not clear. It sounds arrhythmic, however we have nothing specific to go by on telemetry or her symptoms. She's had no arrhythmias documented on telemetry and her prior palpitations are from premature atrial beats and should not cause syncope. I would monitor her while she is here, if no etiology is identified we should plan outpatient event monitoring. We can arrange this when she leaves. 2. Valvular disease: She has aortic insufficiency and mitral regurgitation however her LV function is normal so this is not likely to relate to her presentation and these are long-standing abnormalities. Thank you for allowing me to participate in her care.
--- NOTE | 2017-03-19 16:27 | Discharge Summary ---
Discharge Summary Date of Service Mar 19, 2017. Discharge Summary Admission Date: Mar 19, 2017 at 00:53 Discharge Date: Mar 19, 2017 Discharge Disposition: Home Principal Diagnosis: Syncope likely cardiogenic Problems/Secondary Diagnoses: Maxilofacial fractures (noted in Maxilofacial CT scan) Procedures: DIAGNOSTIC IMAGING [~ rep ct add3]] MAXILLOFACIAL CT WITHOUT CONTRAST CLINICAL HISTORY: Fall. COMPARISON STUDY: None. TECHNIQUE: A maxillofacial CT was performed without IV contrast. Coronal and sagittal reformats were viewed. A dose lowering technique was utilized adhering to the principles of ALARA. FINDINGS: There is moderate left orbital gas. There is no significant retrobulbar hematoma and the globes are intact. Intraorbital contusion is noted. There is hemorrhage within the left maxillary sinus. Comminuted, mildly displaced fracture of the left orbital floor is noted. No herniation of orbital contents is noted. There is no mandibular fracture. There is an acute fracture of the left zygomatic arch which is displaced 5 mm. Mildly displaced comminuted fractures of the lateral and medial nevarez of the left orbit are noted as well as fractures of the anterior, posterior and medial nevarez of the left maxillary sinus. The pterygoid plates are intact. Cervical spine CT will be reported separately. There is no hydrocephalus. IMPRESSION: Extensive left orbital trauma, including moderate orbital gas with no significant retrobulbar hematoma. Globe intact. Mildly displaced, comminuted left orbital floor fracture with displaced fractures of the medial and lateral nevarez of the left orbit, anterior, posterior and medial nevarez of the left maxillary sinus as well as fractures of the left zygomatic arch and left nasal bone. Electronically signed by: Minesh Weems M.D. 03/18/2017 11:17 PM Dictated Date/Time: 03/18/2017 11:[address] HEAD WITHOUT CONTRAST (CT) CLINICAL HISTORY: Subdural hematoma. Follow-up examination. COMPARISON STUDY: 03/18/2017 TECHNIQUE: Axial CT of the brain is performed from the vertex to the skull base. IV contrast was not administered for this examination. A dose lowering technique was utilized adhering to the principles of ALARA. CT DOSE: 537.48 mGy.cm FINDINGS: No intra or extra-axial mass lesions are visualized. There is no CT evidence of acute cortical infarction. There is no evidence of midline shift. There is no acute hemorrhage. There is asymmetric extra-axial space similar to the preceding study. While likely secondary to atrophy, a chronic subdural hygroma could appear similar. There are patchy white matter hypodensities likely on a small vessel basis. There is no evidence of pathologic ventricular dilatation. There is opacification of the left maxilla sinus. Multiple left maxilla sinus fractures are visualized. There is a left zygomatic arch fracture. There is a left orbital floor fracture. 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 IMPRESSION: 1. No acute intracranial findings 2. Left-sided facial fractures with opacification of the left maxillary sinus, left orbital floor fracture, fractures of the zygomatic arch, lateral wall the left orbit, and anterior and lateral nevarez of left maxillary sinus. Electronically signed by: Gary Hughes M.D. 03/19/2017 8:00 AM Dictated Date/Time: 03/19/2017 7:56 AM Consultations: Cardiology Consultation Date of Consultation: Mar 19, 2017. Requesting Physician: Dr Padilla Reason for Consultation: Syncope Pt evaluation today including: conversation w/ patient, conversation w/ family , physical exam, lab review, review of studies History of Present Illness This is a very pleasant 82-year-old woman who is followed by Dr. Fofana in our office for valvular heart disease. She presented with an episode of syncope with facial injury. She does have a history of hypercholesterolemia, hypertension and palpitations, she has premature atrial beats. She also has aortic insufficiency and a possible bicuspid aortic valve. She has no memory of the event, she doesn't recall exactly what she was doing before she fell in her hallway but recalls that she was getting ready to go to bed. She doesn't recall whether she was going to the bathroom or coming from the bathroom, her daughter tells me that based on the arrangement of her house that she probably was coming out of the bathroom but she doesn't recall it. The only thing she remembers about the incident was waking up on the floor with no memory of hitting the floor and noting that there was a lot of blood on the floor. She then called her daughter and was brought to the emergency room. She has had no prior syncopal events, she does get momentary lightheadedness from time to time that lasts a few minutes and she does have an occasional episode of vertigo (which is the room spinning), often in bed, but she doesn't remember any of these sensations at the time of this fall. She does have a history of palpitations which have been identified as premature atrial beats, however she does not recall anything unusual about them at the time of this event. Since admission to the hospital she has felt well and has had no lightheadedness or dizziness and is not having much the way of palpitations. She has had no chest discomfort throughout this. Past Medical/Surgical History Hypercholesterolemia Hypertension Premature atrial beats Social History Smoking Status: Never Smoker History of Alcohol Use: No Review of Systems Constitutional: No fever, No weight loss, No weakness Respiratory: No cough, No wheezing, No shortness of breath, No dyspnea on exertion Cardiac: + see HPI, + palpitations, + problem reported (syncope), No chest pain , No orthopnea, No PND, No edema Abdomen: No pain, No nausea, No vomiting, No diarrhea, No GI bleeding Female : No problem reported Neurologic: No paralysis, No weakness, No numbness/tingling, No balance problems Heme: No abnormal bleeding/bruising, No clotting problems Endo: No fatigue Skin: No problem reported All Other Systems: Reviewed and Negative Allergies Coded Allergies: No Known Allergies (Unverified , 03/18/17) Medications Current Inpatient Medications Medications (Trade) Dose Ordered Sig/Capo Route Start Time Stop Time Status Last Admin Dose Admin Acetaminophen (Tylenol Tab) 650 mg Q4H PRN PO 03/19/17 01:00 04/18/17 00:59 Al Hydrox/Mg Hydrox/Simethicone (Maalox Max Susp) 15 ml Q4H PRN PO 03/19/17 01:00 04/18/17 00:59 Magnesium Hydroxide (Milk Of Magnesia Susp) 30 ml Q12H PRN PO 03/19/17 01:00 04/18/17 00:59 Ondansetron HCl (Zofran Inj) 4 mg Q6H PRN IV 03/19/17 01:00 04/18/17 00:59 Polyethylene (Miralax Powder Packet) 17 gm DAILY PRN PO 03/19/17 01:00 04/18/17 00:59 Atenolol (Tenormin Tab) 25 mg QAM PO 03/19/17 09:00 04/18/17 08:59 03/19/17 08:14 25 MG Lisinopril (Zestril Tab) 5 mg QAM PO 03/19/17 09:00 04/18/17 08:59 03/19/17 08:14 5 MG Simvastatin (Zocor Tab) 40 mg QPM PO 03/19/17 21:00 04/18/17 20:59 Miscellaneous (Iv Fluids Completed) 1 ea PRN PRN N/A 03/19/17 05:15 03/19/18 05:14 Physical Exam Vital Signs Past 12 Hours Date Time Temp Pulse Resp B/P (MAP) Pulse Ox O2 Delivery O2 Flow Rate FiO2 03/19/17 11:11 () 97 03/19/17 11:02 36.9 63 18 124/64 (84) 99 Room Air 03/19/17 08:00 Room Air 03/19/17 07:04 36.7 63 16 125/65 (85) 99 Room Air 03/19/17 04:17 36.6 58 18 110/60 (77) 99 Room Air 03/19/17 04:00 99 Room Air 03/19/17 01:22 36.9 72 18 151/65 99 Room Air Constitutional: General Apperance: heathly-appearing Level of Distress: NAD Psychiatric: Mental Status: active & alert Head: normocephalic Eyes: EOM: EOMI ENMT: normal ENT inspection, hearing grossly normal Neck: supple, no masses Lungs: Respiratory effort: no dyspnea, good air movement Auscultation: breath sounds normal, no wheezing Cardiovascular: Heart Auscultation: RRR, no murmurs, no rubs, no gallops Peripheral Pulses: Bruits: none appreciated Abdomen: Bowel Sounds: normal Inspection & Palpation: soft, no tenderness, guarding & rebound, no masses Musculoskeletal: normal strength (5/5 throughout) Extremities: no edema Neurologic: Cranial Nerves: grossly intact Sensation: grossly intact Data Laboratory Results: Last 24 Hours Test 03/18/17 23:05 03/18/17 23:16 03/19/17 02:07 White Blood Count 13.44 K/uL Red Blood Count 4.00 M/uL Hemoglobin 12.6 g/dL Hematocrit 38.9 % Mean Corpuscular Volume 97.3 fL Mean Corpuscular Hemoglobin 31.5 pg Mean Corpuscular Hemoglobin Concent 32.4 g/dl Platelet Count 261 K/uL Mean Platelet Volume 9.7 fL Neutrophils (%) (Auto) 82.3 % Lymphocytes (%) (Auto) 8.9 % Monocytes (%) (Auto) 7.7 % Eosinophils (%) (Auto) 0.7 % Basophils (%) (Auto) 0.1 % Neutrophils # (Auto) 11.08 K/uL Lymphocytes # (Auto) 1.19 K/uL Monocytes # (Auto) 1.03 K/uL Eosinophils # (Auto) 0.09 K/uL Basophils # (Auto) 0.01 K/uL RDW Standard Deviation 44.5 fL RDW Coefficient of Variation 12.5 % Immature Granulocyte % (Auto) 0.3 % Immature Granulocyte # (Auto) 0.04 K/uL Sodium Level 140 mmol/L Potassium Level 3.9 mmol/L Chloride Level 102 mmol/L Carbon Dioxide Level 28 mmol/L Anion Gap 10.0 mmol/L Blood Urea Nitrogen 22 mg/dl Creatinine 0.88 mg/dl Est Creatinine Clear Calc Drug Dose 52.3 ml/min Estimated GFR () 71.9 Estimated GFR (Non- 62.1 BUN/Creatinine Ratio 25.4 Random Glucose 151 mg/dl Calcium Level 9.6 mg/dl Total Bilirubin 0.7 mg/dl Direct Bilirubin 0.1 mg/dl Aspartate Amino Transf (AST/SGOT) 21 U/L Alanine Aminotransferase (ALT/SGPT) 23 U/L Alkaline Phosphatase 26 U/L Total Protein 7.5 gm/dl Albumin 3.6 gm/dl Lipase 175 U/L Bedside Troponin I < 0.030 ng/ml Magnesium Level 1.9 mg/dl Troponin I < 0.015 ng/ml Imaging: An echocardiogram done this admission shows normal left ventricular size and function with no wall motion or maladies and mild concentric left ventricular hypertrophy. There is a possible bicuspid aortic valve with mild to moderate aortic insufficiency. Mild mitral regurgitation. EKG: An electrocardiogram shows sinus rhythm at 70 bpm, minor nonspecific ST-T abnormalities. Telemetry reviewed: Sinus rhythm with rare premature atrial beats. Assessment & Plan 1. Syncope: The cause of this is not clear. It sounds arrhythmic, however we have nothing specific to go by on telemetry or her symptoms. She's had no arrhythmias documented on telemetry and her prior palpitations are from premature atrial beats and should not cause syncope. I would monitor her while she is here, if no etiology is identified we should plan outpatient event monitoring. We can arrange this when she leaves. 2. Valvular disease: She has aortic insufficiency and mitral regurgitation however her LV function is normal so this is not likely to relate to her presentation and these are long-standing abnormalities. Thank you for allowing me to participate in her care. <Electronically signed by Roosevelt Greene M.D.> Signed: 03/19/17 1252 Medication Reconciliation New Medications: Amoxicillin & Pot Clavulanate (Augmentin 875-125 mg) 1 Tab Tab 875 MG PO BID, #14 TAB Continued Medications: Aspirin Enteric Coated (Ecotrin Or Generic) 81 Mg Tab 81 MG PO QAM, TAB Atenolol (Tenormin) 25 Mg Tab 25 MG PO QAM, TAB Calcium/Vitamin D (Os-Matt 500 Plus D) Tab 1 TAB PO BID Diphenhydramine Hcl (Benadryl Allergy) 25 Mg Tab 50 MG PO HS Ibuprofen (Advil) 200 Mg Tab 400 MG PO BID, TAB Multiple Vitamins W/ Minerals (Centrum Silver Ultra Wome) 1 Tab Tab 1 TAB PO QAM Discharge Exam Review of Systems: Constitutional: No fever, No chills, No sweats Eyes: No worsening of vision, No eye pain ENT: No hearing loss, No unusual epistaxis Respiratory: No cough, No sputum, No wheezing Cardiovascular: No chest pain, No orthopnea, No PND Abdomen: No pain, No nausea, No vomiting Neurologic: No memory loss, No paralysis, No weakness Psychiatric: No anhedonism Physical Exam: General Appearance: no apparent distress, + pertinent finding (ecchymosis noted around left eye) Neck: supple, no adenopathy Respiratory/Chest: chest non-tender, lungs clear, normal breath sounds Cardiovascular: regular rate, rhythm, no edema, no gallop, no murmur Abdomen / GI: normal bowel sounds, non tender, soft Extremities: normal inspection Skin: normal color, warm/dry Lymphatic: no adenopathy Hospital Course History & Physical Date & Time of Service: Mar 19, 2017 at 00:23 Chief Complaint: Fell, Bruising On Face Primary Care Physician: Jeanmarie Elizalde M.D. History of Present Illness Source: patient 82 y/o F Hx HTN, HPL - was in her normal state of health today per family who had left her house at 8pm. Shortly after, they received a call from the pt indicating that she had probably passed out and landed directly on her face. Her face was covered with blood and she had significant pain and bruising around her L orbit. She had no recollection of what transpired prior to finding herself on the floor. On arrival to the ER a CT head revealed displaced, comminuted left orbital floor fracture with displaced fractures of the medial and lateral nevarez of the left orbit, anterior, posterior and medial nevarez of the left maxillary sinus as well as fractures of the left zygomatic arch and left nasal bone. She denies CP, SOB, N/V or dysuria. She has no prior history of syncope or significant arrhythmias. She was placed on Atenolol by her hospice spiritual care coordinator due to frequent PVCs and palpitations. Past Medical/Surgical History Medical Problems: (1) Borderline hypertension Status: Chronic (2) Vertigo Status: Chronic 3) Hyperlipidemia 4) Frequent PVCs - complaints of palpitations Surgical Problems: (1) History of cataract surgery Status: Resolved Family History Noncontributory Social History Smoking Status: Never Smoker Smokeless Tobacco Use: No Drug Use: none Marital Status: Occupational Status: retired Multi-Drug Resistant Organisms History of MDRO: No Allergies Coded Allergies: No Known Allergies (Unverified , 03/18/17) Home Medications Scheduled Aspirin Enteric Coated (Ecotrin Or Generic), 81 MG PO QAM Atenolol (Tenormin), 25 MG PO QAM Calcium/Vitamin D (Os-Matt 500 Plus D), 1 TAB PO BID Diphenhydramine Hcl (Benadryl Allergy), 50 MG PO HS Eye Drops (Eye Drops), 1 DROP OPB BID Ibuprofen (Advil), 400 MG PO BID Lisinopril (Prinivil), 5 MG PO QAM Multiple Vitamins W/ Minerals (Centrum Silver Ultra Wome), 1 TAB PO QAM Simvastatin (Zocor), 40 MG PO QPM Review of Systems Constitutional: No fever, No chills, No sweats Eyes: No worsening of vision ENT: + problem reported (Facial pain as above - L periorbital bruising), No hearing loss, No unusual epistaxis Respiratory: No cough, No sputum, No wheezing Cardiovascular: No chest pain, No orthopnea, No PND Musculoskeletal: No joint pain Genitourinary - Female: No dysuria, No urinary frequency, No urinary urgency Neurologic: No memory loss, No paralysis, No weakness Psychiatric: No depression symptoms Endocrine: No fatigue Hematologic / Lymphatic: No abnormal bleeding/bruising Integumentary: No rash Allergic / Immunologic: No environmental allergies Physical Exam Vital Signs Date Time Temp Pulse Resp B/P (MAP) Pulse Ox O2 Delivery O2 Flow Rate FiO2 03/19/17 00:01 70 16 127/76 98 Room Air 03/18/17 21:46 36.4 74 20 118/51 98 Room Air General Appearance: WD/WN, no apparent distress Head: normocephalic Eyes: normal inspection, EOMI ENT: pharynx normal, + pertinent finding (Extensive L periorbital bruising - laceration below L orbit is stitched ) Neck: supple, no JVD Respiratory/Chest: chest non-tender, lungs clear, normal breath sounds Cardiovascular: regular rate, rhythm, no edema, no gallop, no JVD, no murmur, normal peripheral pulses Abdomen/GI: normal bowel sounds, non tender, soft Back: normal inspection, no CVA tenderness, no muscle spasm, normal range of motion Extremities/Musculoskelatal: normal inspection, no calf tenderness, normal capillary refill, no pedal edema, normal range of motion Neurologic/Psych: language path II-XII nml as tested, no motor/sensory deficits, alert, oriented x 3 Skin: normal color, warm/dry Diagnostics Laboratory Results Results Past 24 Hours Test 03/18/17 23:05 Range/Units White Blood Count 13.44 4.8-10.8 K/uL Red Blood Count 4.00 4.2-5.4 M/uL Hemoglobin 12.6 12.0-16.0 g/dL Hematocrit 38.9 37-47 % Mean Corpuscular Volume 97.3 80-100 fL Mean Corpuscular Hemoglobin 31.5 25-34 pg Mean Corpuscular Hemoglobin Concent 32.4 32-36 g/dl Platelet Count 261 130-400 K/uL Mean Platelet Volume 9.7 7.4-10.4 fL Neutrophils (%) (Auto) 82.3 % Lymphocytes (%) (Auto) 8.9 % Monocytes (%) (Auto) 7.7 % Eosinophils (%) (Auto) 0.7 % Basophils (%) (Auto) 0.1 % Neutrophils # (Auto) 11.08 1.4-6.5 K/uL Lymphocytes # (Auto) 1.19 1.2-3.4 K/uL Monocytes # (Auto) 1.03 0.11-0.59 K/uL Eosinophils # (Auto) 0.09 0-0.5 K/uL Basophils # (Auto) 0.01 0-0.2 K/uL RDW Standard Deviation 44.5 36.4-46.3 fL RDW Coefficient of Variation 12.5 11.5-14.5 % Immature Granulocyte % (Auto) 0.3 % Immature Granulocyte # (Auto) 0.04 0.00-0.02 K/uL Sodium Level 140 136-145 mmol/L Potassium Level 3.9 3.5-5.1 mmol/L Chloride Level 102 98-107 mmol/L Carbon Dioxide Level 28 21-32 mmol/L Anion Gap 10.0 3-11 mmol/L Blood Urea Nitrogen 22 7-18 mg/dl Creatinine 0.88 0.60-1.20 mg/dl Est Creatinine Clear Calc Drug Dose 52.3 ml/min Estimated GFR () 71.9 Estimated GFR (Non- 62.1 BUN/Creatinine Ratio 25.4 10-20 Random Glucose 151 70-99 mg/dl Calcium Level 9.6 8.5-10.1 mg/dl Total Bilirubin 0.7 0.2-1 mg/dl Direct Bilirubin 0.1 0-0.2 mg/dl Aspartate Amino Transf (AST/SGOT) 21 15-37 U/L Alanine Aminotransferase (ALT/SGPT) 23 12-78 U/L Alkaline Phosphatase 26 45-117 U/L Total Protein 7.5 6.4-8.2 gm/dl Albumin 3.6 3.4-5.0 gm/dl Lipase 175 73-393 U/L Diagnostic Radiology CT cervical spine: No acute cervical spine fracture or subluxation. CT head: 1. No acute intracranial findings. 2. No calvarial fracture. 3. Extensive left orbital trauma with orbital gas and multiple left-sided facial fractures. CT Maxillofacial: Extensive left orbital trauma, including moderate orbital gas with no significant retrobulbar hematoma. Globe intact. Mildly displaced, comminuted left orbital floor fracture with displaced fractures of the medial and lateral nevarez of the left orbit, anterior, posterior and medial nevarez of the left maxillary sinus as well as fractures of the left zygomatic arch and left nasal bone. Impression Assessment and Plan 82 y/o F Hx HTN, HPL - was in her normal state of health today per family who had left her house at 8pm. Shortly after, they received a call from the pt indicating that she had probably passed out and landed directly on her face. Her face was covered with blood and she had significant pain and bruising around her L orbit. She had no recollection of what transpired prior to finding herself on the floor. On arrival to the ER a CT head revealed displaced, comminuted left orbital floor fracture with displaced fractures of the medial and lateral nevarez of the left orbit, anterior, posterior and medial nevarez of the left maxillary sinus as well as fractures of the left zygomatic arch and left nasal bone. She denies CP, SOB, N/V or dysuria. She has no prior history of syncope or significant arrhythmias. She was placed on Atenolol by her hospice spiritual care coordinator due to frequent PVCs and palpitations. 1) Syncope - will monitor on telemetry, will order a troponin as this may indicate a ventricular arrhythmia if elevated. As she has no recollection of syncope and did not apparently have any preceding symptoms, she may benefit from an ambulatory monitor and we should likely contact her hospice spiritual care coordinator prior to DC. Cont Atenolol. 2) Head trauma and facial/orbital fractures. Er MD had consulted surgery to review imaging. She is unlikely to require intervention. We will consult maxillofacial surgery AM. 3) HTN, HPL - Cont Atenolol, Lisinopril, Statin - The pt's CT was referred to both in house radiology and the [facility] service - there is a discrepancy between the 2 studies and on the [facility] read there is concern for a small subdural hematoma - we will obtain a repeat CT AM to clarify and insure there is no expansion taking place. Full code - SCDs Total time for this admit including review of labs, meds, records - discussion with pt , family , ER attending - 35 min Level of Care Telemetry Resuscitation Status FULL RESUSCITATION VTE Prophylaxis Given or contraindicated: SCD's Hospital Course As noted above, patient was seen by cardio and was recommended to have a playground monitor as an outpatient This will be set up with cardio as an outpatient. Script was given to Nurse navigator. In regards to maxilofacial fracture, patient will be on antibiotics as noted in discharge instructions and discharge meds. Patient will f/u with maxillofacial as an outpatient. All questions by patient were answered. Total Time Spent: Greater than 30 minutes This includes examination of the patient, discharge planning, medication reconciliation, and communication with other providers. Discharge Instructions Please refer to the electronic Patient Visit Report (Discharge Instructions) for additional information.
[2017-03-19] MEDS ORDERED: AMOX875T PO (16:28)
--- NOTE | 2017-03-19 16:32 | Discharge Instructions ---
Discharge Instructions Date of Service Mar 19, 2017. Admission Reason for Admission: Syncope Discharge Discharge Diagnosis / Problem: Syncope likely from arrythmia/ Left-sided facial fractures Discharge Goals Goal(s): Decrease discomfort, Improve function Activity Recommendations Activity Limitations: resume your previous activity . Instructions / Follow-Up Instructions / Follow-Up F/U with Maxilofacial in 5-7days F/U with cardiology for 30 day event monitor F/U with PCP in 1-2 weeks Current Hospital Diet Patient's current hospital diet: AHA Diet (Heart Healthy) Discharge Diet Recommended Diet: AHA Diet (Heart Healthy) Pending Studies Studies pending at discharge: no Medical Emergencies . Who to Call and When: Medical Emergencies: If at any time you feel your situation is an emergency, please call 911 immediately. . Non-Emergent Contact Non-Emergency issues call your: Primary Care Provider Call Non-Emergent contact if: your pain is worsening . . "Provider Documentation" section prepared by Dioni Kim. . Antiquer Recommendations Antiquer Recommendations: Do not blow nose. Take antibiotics as directed VTE Core Measure Inpt VTE Proph given/why not?: SCD's
[2017-03-19] MEDS ORDERED: SIMVASTATIN 40 MG TAB PO SCH (21:00)
== END 2017-03-19 17:47 | disposition home or self-care (01) ==
LOC: C.EDB 21:38 → C.2T 03-19 00:53 → ENRESERV 03-19 01:02
PROVIDERS: ADMIT Internal Medicine; ATTEND Internal Medicine Sports Medicine
DX: R55 Syncope and collapse (principal); S02.401A Maxillary fracture, unspecified side, initial encounter for closed fracture; W19.XXXA Unspecified fall, initial encounter; Y92.018 Other place in single-family (private) house as the place of occurrence of the external cause; E78.00 Pure hypercholesterolemia, unspecified; I10 Essential (primary) hypertension; R00.2 Palpitations; I49.1 Atrial premature depolarization; I35.1 Nonrheumatic aortic (valve) insufficiency; Z98.49 Cataract extraction status, unspecified eye; Z79.82 Long term (current) use of aspirin; Z79.899 Other long term (current) drug therapy

== ENCOUNTER 2017-03-24 17:58 | Inpatient (IN) | payer OTHER ==
[~2017-03-24] VITALS: Ht 172.7 cm; Wt 66.8 kg
[~2017-03-24 17:58] MED LIST changes: -LPT40 PO; -PROP1DRO2 OPB
[2017-03-24] MEDS ORDERED: MAGNESIUM HYDROXIDE SUSP 30 ML UDC PO PRN (18:45)
[2017-03-24] MEDS ORDERED: PHARMACIST DISCHARGE MED REC CONSULT PRN (18:45)
[2017-03-24] MEDS ORDERED: ALUMINUM/MAGNESIUM/SIMETH (MAALOX MAX) 30 ML UDC PO PRN (18:45)
[2017-03-24] MEDS ORDERED: ACETAMINOPHEN 325 MG TAB PO PRN (18:45)
[2017-03-24] MEDS ORDERED: ONDANSETRON INJ 2 MG/ML 2 ML VIAL IV PRN (18:45)
[2017-03-24] MEDS ORDERED: POLYETHYLENE (MIRALAX) 17 GM PACK PO PRN (18:45)
[2017-03-24 18:53] VITALS: BP 135/62; PULSE 64; TEMP 37; O2SAT 98; Ht 172.7 cm; Wt 66.8 kg
--- NOTE | 2017-03-24 18:55 | History and Physical ---
History & Physical Date & Time of Service: Mar 24, 2017 at 18:43 Chief Complaint: Stroke Primary Care Physician: Jeanmarie Elizalde M.D. History of Present Illness Source: patient 82 y/o F Hx HTN, HPL - Recent fall with head and face trauma leading to comminuted left orbital floor fracture with displaced fractures of the medial and lateral nevarez of the left orbit, anterior, posterior and medial nevarez of the left maxillary sinus as well as fractures of the left zygomatic arch and left nasal bone. No intervention was deemed necessary and she was D/Cd the following day. Since that time family have described intermittent confusion and balance problems. She suffered an additional fall today without any reported trauma but could not get up by herself. She was evaluated by her PCP who obtained a follow-up CT. A 7 mm focal area of low-attenuation within the left frontal lobe is seen which is new from a previous study and may represent a subacute CVA. She was subsequently sent to the hospital for admission and further evaluation. Past Medical/Surgical History Medical Problems: (1) Borderline hypertension Status: Chronic (2) Vertigo Status: Chronic (3) Syncope (4) Multiple facial fractures following fall Surgical Problems: (1) History of cataract surgery Status: Resolved Social History Smoking Status: Never Smoker Drug Use: none Marital Status: Occupational Status: retired Multi-Drug Resistant Organisms History of MDRO: No Allergies Coded Allergies: No Known Allergies (Unverified , 03/18/17) Home Medications Scheduled Amoxicillin & Pot Clavulanate (Augmentin 875-125 mg), 875 MG PO BID Aspirin Enteric Coated (Ecotrin Or Generic), 81 MG PO QAM Atenolol (Tenormin), 25 MG PO QAM Calcium/Vitamin D (Os-Matt 500 Plus D), 1 TAB PO BID Diphenhydramine Hcl (Benadryl Allergy), 50 MG PO HS Eye Drops (Eye Drops), 1 DROP OPB BID Ibuprofen (Advil), 400 MG PO BID Lisinopril (Prinivil), 5 MG PO QAM Multiple Vitamins W/ Minerals (Centrum Silver Ultra Wome), 1 TAB PO QAM Simvastatin (Zocor), 40 MG PO QPM Review of Systems Constitutional: No fever, No chills, No sweats Eyes: No worsening of vision ENT: No hearing loss, No unusual epistaxis, No nasal symptoms Respiratory: No cough, No sputum, No wheezing Cardiovascular: No chest pain, No orthopnea, No PND Abdomen: No pain, No nausea, No vomiting Musculoskeletal: No joint pain Genitourinary - Female: No dysuria, No urinary frequency Neurologic: + memory loss, + weakness, + balance problems Psychiatric: No depression symptoms Endocrine: No fatigue Hematologic / Lymphatic: No abnormal bleeding/bruising Integumentary: No rash Allergic / Immunologic: No environmental allergies Physical Exam General Appearance: + pertinent finding (Thin elederly female - oriented - answers questions appropriately) Head: + pertinent finding (Bruising and stitches periorbital L - markedly improved) Eyes: + pertinent finding (Periorbital bruising - lac above L eye) ENT: normal ENT inspection, pharynx normal Neck: supple, no JVD Respiratory/Chest: chest non-tender, lungs clear, + pertinent finding (Reduced air entry RLL) Cardiovascular: regular rate, rhythm, no edema, no gallop Abdomen/GI: normal bowel sounds, non tender, soft Back: normal inspection, no CVA tenderness Extremities/Musculoskelatal: normal inspection, no calf tenderness, normal capillary refill Neurologic/Psych: respiratory therapist II-XII nml as tested, alert, + pertinent finding (No overt moteor or sensory deficits - mentation intact - pt leans left during exam - I straightened her out and she gradually eaned L again ) Skin: no rash Diagnostics Laboratory Results Results Past 24 Hours Test 03/24/17 18:38 Range/Units Diagnostic Radiology CT head 1. No acute intracranial hemorrhage or midline shift. 2. 7 mm focal area of low-attenuation within the left frontal lobe periventricular white matter as above may reflect chronic microvascular ischemic changes, however appears new from comparison study and is suspicious for a possible acute or subacute lacunar infarction. 3. Atrophy with chronic microvascular ischemic changes. 4. Multiple left-sided facial fractures again seen Impression Assessment and Plan 82 y/o F Hx HTN, HPL - Recent fall with head and face trauma leading to comminuted left orbital floor fracture with displaced fractures of the medial and lateral nevarez of the left orbit, anterior, posterior and medial nevarez of the left maxillary sinus as well as fractures of the left zygomatic arch and left nasal bone. No intervention was deemed necessary and she was D/Cd the following day. Since that time family have described intermittent confusion and balance problems. She suffered an additional fall today without any reported trauma but could not get up by herself. She was evaluated by her PCP who obtained a follow-up CT. A 7 mm focal area of low-attenuation within the left frontal lobe is seen which is new from a previous study and may represent a subacute CVA. She was subsequently sent to the hospital for admission and further evaluation. 1) Possible focal deficits - confusion, acute unstable gait - abnormal CT head. Pt admitted with CVA protocol. Placed on ASA, statin dose increased. MRA/ MRI ordered - pt to be evaluated by neuro. It is also possible that due to her recent significant head trauma, she may be exhibiting post-concussion syndrome. May need rehab placement as she is not likely safe at home presently. 2) Recent syncope - following with a program management manager - a 30 day event monitor is ordered for DC. 3) HTN - will cont Lisinopril as her symptoms are not acute - if a CVA is confirmed it is more likely subacute therefore. 4) Facial trauma and fractures - has f/u with ENT Carmela 5) Exam revealed reduced air entry at R base - will obtain CXR to r/o pneumothorax considering recent falls Full code - SCDs Total time for this admit including review of labs, meds, imaging, recent records - discussion with pt, family, PCP - 37 min Level of Care Telemetry Resuscitation Status FULL RESUSCITATION VTE Prophylaxis VTE Risk Assessment Done? Y/N: Yes Risk Level: Moderate
[2017-03-24 19:15] LABS: BASO % 0.4 %; BASO ABS # 0.03 K/uL (0-0.2); COMPLETE YES; EOS % 1.1 %; HEMATOCRIT 35.9 % (37-47); IG% 0.3 %; LYMPH % 23.8 %; LYMPH ABS # 1.73 K/uL (1.2-3.4); MEAN CELL VOLUME 98.1 fL (80-100); MEAN CORPUSCULAR HGB CONC 32.6 g/dl (32-36); MEAN PLATELET VOLUME 9.4 fL (7.4-10.4); MONO % 11.1 %; NEUT % 63.3 %; PLATELET COUNT 271 K/uL (130-400); RED BLOOD COUNT 3.66 M/uL (4.2-5.4); WHITE BLOOD COUNT 7.27 K/uL (4.8-10.8)
[2017-03-24 19:27] VITALS: BP 149/72; PULSE 61; TEMP 36.8; O2SAT 93
[2017-03-24 19:29] LABS: BLOOD UREA NITROGEN 16 mg/dl (7-18); BUN/CREATININE RATIO 22.4 (10-20); CALCIUM 9.9 mg/dl (8.5-10.1); CARBON DIOXIDE 30 mmol/L (21-32); CHLORIDE 100 mmol/L (98-107); GLUCOSE 104 mg/dl (70-99); POTASSIUM 4.2 mmol/L (3.5-5.1); SODIUM 136 mmol/L (136-145)
[2017-03-24 20:18] VITALS: O2SAT 93
[2017-03-24] MEDS: CALCIUM 600MG + VIT D 400 IU TAB PO SCH (20:36)
--- NOTE | 2017-03-24 21:51 | DIAGNOSTIC IMAGING REPORT ---
CHEST ONE VIEW PORTABLE HISTORY: Atypical chest pain. pneumothorax COMPARISON: Chest 03/18/2017. FINDINGS: No pneumothorax. No pleural effusions. A few linear densities the left lung base favor scarring or atelectasis. The lungs are otherwise clear. The heart is normal in size. Mild emphysema. IMPRESSION: No acute process. Electronically signed by: Peter Reese M.D. 03/24/2017 9:49 PM Dictated Date/Time: 03/24/2017 9:46 PM
[2017-03-24] MEDS ORDERED: IV FLUIDS COMPLETED PRN (23:45)
[2017-03-25] VITALS (7 sets, daily range): BP systolic 92–151; BP diastolic 56–67; PULSE 60–70; TEMP 36.3–37; O2SAT 94–98
[2017-03-25] MEDS ORDERED: PROP1DRO2 OPB (00:30)
[2017-03-25] MEDS ORDERED: ARTIFICIAL TEARS OP SOLN OP PRN ×2 (00:30)
[2017-03-25] MEDS ORDERED: GADAVIST IV PRN (01:00)
[2017-03-25] MEDS ORDERED: INFLUENZA ADMINISTRATION CHARGE ONE (03:45)
[2017-03-25] MEDS ORDERED: PNEUMOCOCCAL POLYSACCHARIDES 25 MCG/0.5 ML VIAL/SYR IM. ONE (03:45)
[2017-03-25] MEDS ORDERED: PNEUMOCOCCAL ADMINISTRATION CHARGE ONE (03:45)
[2017-03-25] MEDS ORDERED: INFLUENZA VACCINE HIGH DOSE 65+ 0.5 ML SYR IM. ONE (03:45)
--- NOTE | 2017-03-25 06:37 | DIAGNOSTIC IMAGING REPORT ---
MRI OF THE BRAIN WITHOUT CONTRAST CLINICAL HISTORY: Stroke. Fall. COMPARISON STUDY: Head CT March 19, 2017 and March 24, 2017. TECHNIQUE: Utilizing a 1.5 Rhea magnet and dedicated coil, multiplanar, multiecho imaging of the brain was performed without IV contrast. FINDINGS: A 7 mm focus of restricted diffusion within the anterior left frontal lobe shown on axial image 12 and corresponds the abnormality on prior head CT. This reflects an acute infarct. No additional sites of acute infarction are present. Ventricular system is normal. Basilar cisterns are patent. Prominence of the extra-axial CSF spaces is noted. This is unchanged. Numerous white matter T2 hyperintense foci suggest small vessel disease. No intracranial mass. Air-fluid level with hemorrhage within the left maxillary sinus is noted. Associated fractures of the left maxillary sinus are better depicted on the prior maxillofacial CT. Calvarial signal is maintained. Flow-voids for the major intracranial vessels are present. IMPRESSION: 1. 7 mm acute infarct within the anterior left frontal lobe which corresponds to the abnormality on prior head CT. 2. Left maxillary sinus air-fluid level with hemorrhage and associated fractures of the nevarez of the maxillary sinus which are better depicted on prior CT. 3. Prominence of the extra-axial CSF spaces which suggest subdural hygromas. Electronically signed by: Minesh Weems M.D. 03/25/2017 6:35 AM Dictated Date/Time: 03/25/2017 6:29 AM
[2017-03-25 06:43] LABS: BASO % 0.6 %; BASO ABS # 0.04 K/uL (0-0.2); COMPLETE YES; EOS % 2.2 %; HEMATOCRIT 32.6 % (37-47); IG% 0.3 %; LYMPH % 19.6 %; LYMPH ABS # 1.35 K/uL (1.2-3.4); MEAN CELL VOLUME 97.9 fL (80-100); MEAN CORPUSCULAR HEMOGLOBIN 32.7 pg (25-34); MEAN CORPUSCULAR HGB CONC 33.4 g/dl (32-36); MEAN PLATELET VOLUME 9.2 fL (7.4-10.4); MONO % 8.4 %; NEUT % 68.9 %; PLATELET COUNT 255 K/uL (130-400); RED BLOOD COUNT 3.33 M/uL (4.2-5.4)
--- NOTE | 2017-03-25 06:55 | DIAGNOSTIC IMAGING REPORT ---
MR ANGIOGRAPHY OF THE [place] OF [place] NO CONTRAST CLINICAL HISTORY: Stroke like symptoms. COMPARISON STUDY: None. A 3-D [id number] MR angiographic sequence of the [place] of [place] was performed. Both the source and projection images were reviewed. There is no evidence of major intracranial branch occlusion. There is no evidence of intracranial stenosis. There are no lesions suspicious for aneurysm. There are bilateral extra-axial fluid collections, likely representing hygromas. IMPRESSION: 1. Bilateral extra-axial fluid collections likely representing hygromas 2. No evidence of aneurysm. No evidence of major intracranial branch occlusion. Electronically signed by: Gary Hughes M.D. 03/25/2017 6:54 AM Dictated Date/Time: 03/25/2017 6:50 AM
[2017-03-25 07:14] LABS: BUN/CREATININE RATIO 24.1 (10-20); CALCIUM 9.3 mg/dl (8.5-10.1); CREATININE 0.64 mg/dl (0.60-1.20)
--- NOTE | 2017-03-25 07:35 | DIAGNOSTIC IMAGING REPORT ---
MRA NECK COMBO CLINICAL HISTORY: 82 years-old Female with Stroke. Acute strokelike symptoms with recent fall COMPARISON STUDY: MRA of the head same day. TECHNIQUE: Axial 3-D [id number] MR angiography of the neck is performed. Subsequently, following the IV administration of 6.5 mL of Magnevist coronal MR angiogram of the neck was performed to corroborate the findings. 3-D reformats are created and assessed. All measurements were calculated based on NASCET criteria. FINDINGS: Exam is mildly motion degraded. Bilateral common and internal carotid arteries are widely patent. Bilateral vertebral arteries are codominant and form a normal and patent appearing basilar artery. No high-grade stenosis, aneurysm or proximal branch occlusion. IMPRESSION: Unremarkable MRA of the neck without high-grade stenosis, aneurysm or proximal branch occlusion. The above report was generated using voice recognition software. It may contain grammatical, syntax or spelling errors. Electronically signed by: Mode Correia M.D. 03/25/2017 7:33 AM Dictated Date/Time: 03/25/2017 7:28 AM
[2017-03-25] MEDS: ATORVASTATIN 40 MG TAB PO SCH (07:39)
[2017-03-25] MEDS: ASPIRIN 81 MG ECTAB PO SCH (07:39)
[2017-03-25] MEDS: CALCIUM 600MG + VIT D 400 IU TAB PO SCH ×2 (07:40→21:20)
[2017-03-25] MEDS: LISINOPRIL 5 MG TAB PO SCH (07:40)
[2017-03-25 07:53] LABS: ESTIMATED AVERAGE GLUCOSE 114 mg/dl; HA1C FLAG Normal (Normal)
--- NOTE | 2017-03-25 08:32 | Medical Student: [facility] ---
Consultation Date of Consultation: Mar 25, 2017. Requesting Physician: Dr. Padilla Attending Physician: Dr. Dorsey Reason for Consultation: altered mental status, TIA History of Present Illness Irene Snow is an 82 female, with PMHx of chronic HTN, who presented for CT changes and possible infarct. She was seen at [facility] on 03/19 after she fell getting up out of a chair and hitting her left side of her face on the ground. She was diagnosed with a left orbital fracture and concussion, and she returned home the following day. Since her last admission, she reports balance and some confusion followed by a fall where she could not get her self back up on 03/24. She elaborated on her balance problems, stating she feels weaker and has been more cautious walking since her fall a week ago. She was seen by her PCP after the most recent fall for these symptoms and had a CT scan showing a small area of possible subacute infarct in the left frontal lobe (7mm), which was a change from her previous CT a week earlier. Her follow-up MRI showed acute ishcemic infarct corresponding to area of low attenuation on CT as well as chronic bilateral subdural hydromas. She denies any current symptoms and any pain, although she is slow to answer questions and had some trouble with recalling objects on mental status exam. She also denies any additional symptoms including weakness of right extremities, double vision, changes in vision, numbness, tingling, headache, and nausea. 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[employer]) Review of Systems Constitutional: No fever, No chills Eyes: No eye pain, No redness ENT: No hearing loss, No nasal symptoms Respiratory: No cough, No shortness of breath Cardiac: No chest pain, No palpitations Abdomen: No nausea, No vomiting, No diarrhea, No constipation Musculoskeletal: No joint pain, No muscle pain Neurologic: + memory loss, + weakness, + balance problems, No paralysis, No numbness/tingling, No vertigo Heme: No abnormal bleeding/bruising Endo: No fatigue Skin: + new/changing skin lesions (brusing around left eye from recent fall), No rash Allergies Coded Allergies: No Known Allergies (Unverified , 03/18/17) Medications Current Inpatient Medications Medications (Trade) Dose Ordered Sig/Capo Route Start Time Stop Time Status Last Admin Dose Admin Acetaminophen (Tylenol Tab) 650 mg Q4H PRN PO 03/24/17 18:45 04/23/17 18:44 Al Hydrox/Mg Hydrox/Simethicone (Maalox Max Susp) 15 ml Q4H PRN PO 03/24/17 18:45 04/23/17 18:44 Magnesium Hydroxide (Milk Of Magnesia Susp) 30 ml Q12H PRN PO 03/24/17 18:45 04/23/17 18:44 Ondansetron HCl (Zofran Inj) 4 mg Q6H PRN IV 03/24/17 18:45 04/23/17 18:44 Polyethylene (Miralax Powder Packet) 17 gm DAILY PRN PO 03/24/17 18:45 04/23/17 18:44 Miscellaneous Information (Pharmacist Discharge Med Rec Consult) 1 ea UD PRN N/A 03/24/17 18:45 04/23/17 18:44 Aspirin (Ecotrin Tab) 81 mg QAM PO 03/25/17 09:00 04/24/17 08:59 03/25/17 07:39 81 MG Atenolol (Tenormin Tab) 25 mg QAM PO 03/25/17 09:00 04/24/17 08:59 03/25/17 07:39 25 MG Calcium/Vitamin D (Caltrate Plus Tab) 1 tab BID PO 03/24/17 21:00 04/23/17 20:59 03/25/17 07:40 1 TAB Lisinopril (Zestril Tab) 5 mg QAM PO 03/25/17 09:00 04/24/17 08:59 03/25/17 07:40 5 MG Diphenhydramine HCl (Benadryl Cap) 50 mg HS PO 03/24/17 21:00 04/23/17 20:59 03/24/17 20:36 50 MG Atorvastatin Calcium (Lipitor Tab) 40 mg QAM PO 03/25/17 09:00 04/24/17 08:59 03/25/17 07:39 40 MG Miscellaneous (Iv Fluids Completed) 1 ea PRN PRN N/A 03/24/17 23:45 03/24/18 23:44 Artificial Tears (Artificial Tears) 1 drops BID PRN OP 03/25/17 00:30 04/24/17 00:29 Gadobutrol (Gadavist) 6.5 mmol UD PRN IV 03/25/17 01:00 03/29/17 00:59 Physical Exam Date Time Temp Pulse Resp B/P (MAP) Pulse Ox O2 Delivery O2 Flow Rate FiO2 03/25/17 07:41 37.0 70 20 132/66 (88) 96 Room Air 03/25/17 04:00 Room Air 03/25/17 03:46 36.6 63 18 123/62 (82) 96 Room Air 63 03/25/17 00:18 36.4 60 18 151/67 (95) 94 Room Air 60 03/25/17 00:07 Room Air 03/25/17 00:01 Room Air 03/24/17 20:18 93 Room Air 03/24/17 19:27 36.8 61 20 149/72 (97) 93 Room Air 03/24/17 18:53 37.0 64 18 135/62 98 Room Air General Appearance: no apparent distress, + thin Eyes: bilateral eyes normal inspection, bilateral eyes PERRL, bilateral eyes EOMI ENT: normal ENT inspection, hearing grossly normal, pharynx normal Neck: supple, no carotid bruits Skin: normal color, warm/dry, + pertinent finding (stitches over left eye with ecchymosis) Neurological exam Generally well appearing thin woman who was oriented to place, person, and day of the week. Mental Status Exam: , she was able to repeat the 3 objects but unable to recall any of them. When copying the intersecting pentagons, she seemed to forget what she was doing, asked for clarification, then tried copying again, but missed a side. When doing finger to nose, she was able to complete the task , but intermittently would forget which finger she was supposed to be using. Cranial nerves (II-XII tested): II: visual acuity and visual taylor intact bilaterally; appreciated vessels on funduscopic exam in each eye III, IV, : extraoccular movements intact bilaterally, direct and consenual pupillary light reflexes intact bilaterally V: fascial sensation intact bilaterally in 3 locations (V1, V2, and V3) VII: eyebrow raise symmetric, eyelid close symmetric, smile slightly asymmetric on left side secondary to left cheek swelling from healing traumatic eye injury last week VIII: hearing grossly intact bilaterally IX, X: palate elevation symmetrical, normal phonation and swallowing intact XI: shoulder shrug symmetric XII: tongue protrusion straight (no deviation), equal strength on lateral deviation Sensation: Temperature intact in all four extremities and face bilaterally. Vibration intact in all four extremities. Tone: Appropriate tone appreciated in all four limbs. Strength: 5/5 strength in all muscle groups tested (biceps, triceps, hand process area supervisor/ interosseous muscles, hip flexion, knee extension/flexion, plantar flexion/ extension) Reflexes: 2/4 reflexes bilaterally for triceps, biceps, brachioradialis, patellar, and achilles. Down going toes on Babinski bilaterally Cerebellum: Finger to nose intact bilaterally Gait: Cautious using a walker, needs 1 assist. Laboratory Results Last 24 Hours Test 03/24/17 18:49 03/25/17 05:58 White Blood Count 7.27 K/uL 6.90 K/uL Red Blood Count 3.66 M/uL 3.33 M/uL Hemoglobin 11.7 g/dL 10.9 g/dL Hematocrit 35.9 % 32.6 % Mean Corpuscular Volume 98.1 fL 97.9 fL Mean Corpuscular Hemoglobin 32.0 pg 32.7 pg Mean Corpuscular Hemoglobin Concent 32.6 g/dl 33.4 g/dl Platelet Count 271 K/uL 255 K/uL Mean Platelet Volume 9.4 fL 9.2 fL Neutrophils (%) (Auto) 63.3 % 68.9 % Lymphocytes (%) (Auto) 23.8 % 19.6 % Monocytes (%) (Auto) 11.1 % 8.4 % Eosinophils (%) (Auto) 1.1 % 2.2 % Basophils (%) (Auto) 0.4 % 0.6 % Neutrophils # (Auto) 4.60 K/uL 4.76 K/uL Lymphocytes # (Auto) 1.73 K/uL 1.35 K/uL Monocytes # (Auto) 0.81 K/uL 0.58 K/uL Eosinophils # (Auto) 0.08 K/uL 0.15 K/uL Basophils # (Auto) 0.03 K/uL 0.04 K/uL RDW Standard Deviation 44.8 fL 45.2 fL RDW Coefficient of Variation 12.5 % 12.6 % Immature Granulocyte % (Auto) 0.3 % 0.3 % Immature Granulocyte # (Auto) 0.02 K/uL 0.02 K/uL Sodium Level 136 mmol/L 136 mmol/L Potassium Level 4.2 mmol/L 4.0 mmol/L Chloride Level 100 mmol/L 101 mmol/L Carbon Dioxide Level 30 mmol/L 28 mmol/L Anion Gap 6.0 mmol/L 7.0 mmol/L Blood Urea Nitrogen 16 mg/dl 15 mg/dl Creatinine 0.70 mg/dl 0.64 mg/dl Estimated GFR () 94.8 97.7 Estimated GFR (Non- 81.8 84.3 BUN/Creatinine Ratio 22.4 24.1 Random Glucose 104 mg/dl 93 mg/dl Estimated Average Glucose 114 mg/dl Hemoglobin A1c 5.6 % Calcium Level 9.9 mg/dl 9.3 mg/dl Est Creatinine Clear Calc Drug Dose 70.7 ml/min Triglycerides Level 115 mg/dl Cholesterol Level 144 mg/dl HDL Cholesterol 73 mg/dl LDL Cholesterol, Calculated 48 mg/dl VLDL Cholesterol, Calculated 23 mg/dl Cholesterol/HDL Ratio 2.0 Assessment & Plan Irene Snow is an 82 yo female with PMHx of HTN, with current symptoms consistent with post-concussive syndrome after her orbital fracture last week. Her CT scan showed a small subacute infarct in the left frontal lobe, but it is unclear if this stroke happened before or after her fall causing the orbital fracture. With no localizable deficits on neurological exam and the location of the stroke, it is unlikely that the symptoms of confusion and balance problems are directly a result of the stroke. If she starts to see some resolution of the confusion and balance problems as the brain heals, these findings would support post-concussive syndrome. Additionally, she most likely has a very mild underlying vascular dementia, secondary to chronic hypertension , as she did have some trouble with short term memory on exam and her CT scan is consistent with underlying small vessel, ischemic disease with atrophy. Other diagnoses that were entertained were hemorrhage (no bleed seen on CT), TIA (symptoms have not resolved within 24 hours), and electrolyte imbalance ( Sodium 136, Potassium 4.2, Chloride 100, bicarb 30, and random glucose 104). Plan: Left frontal stroke, subacute - Consult PT/OT/speech, with possible discharge to rehab facility - Continue 81mg aspirin for future stroke prevention Post-concussive syndrome - Continue to monitor confusion/balance problems and see if they start to resolve with time Dementia, mild, vascular - Monitor memory problems - Control blood pressure to help prevent step-nichols decline - Consider outpatient neurology follow-up for future monitoring Hypertension, chronic -Continue home medications (atenolol and lisinopril)
--- NOTE | 2017-03-25 10:04 | Neurology Consultation ---
Neurology Consultation Date of Consultation: Mar 25, 2017. Attending Physician: Joie Adamson M.D. Primary Care Physician: Jeanmarie Elizalde M.D. Reason for Consultation: Stroke History of Present Illness Source: patient, hospital records The patient is an 82-year-old female who presents for further assessment of intermittent confusion poor balance, and falls. She had been evaluated in the hospital 6 days ago after a fall resulting in a left orbital fracture. She was seen by cardiology at that time for suspected syncope. The patient began complaining of intermittent dizziness as well. There are plans for further outpatient cardiac monitoring. Ever since this patient's fall, however, the family has been observing ongoing problems with confusion and poor balance. In fact, she had fallen again just prior to this most recent hospitalization and was unable to get up on her own. She had gone to her primary care physician's office who had ordered a follow-up CT of the head which suggested a subacute, ischemic, left frontal lobe infarct adjacent to the lateral ventricle. She was subsequently admitted for further evaluation and management. I did review the CT of the head completed on March 24, including the images as well as the radiologist's interpretation, and agree. The study also reveals generalized atrophy and chronic microvascular ischemic disease. The area of low attenuation within the left frontal lobe, adjacent to the lateral ventricle measures about 7 mm in size and was not seen on the previous CT of the head done on March 18. I also reviewed the follow-up brain MRI which reveals changes consistent with an acute ischemic infarct corresponding to the area of low attenuation on CT of the head. 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 An MRA of the head and neck are unremarkable. No evidence of him and dynamically significant stenosis, aneurysm, or vascular dissection. A transthoracic echocardiogram completed during her previous admission, was completed on 2016 and revealed a normal ejection fraction and a possible bicuspid aortic valve with mild to moderate regurgitation. The patient is a bit slow to answer questions this morning and has some difficulty with short-term memory but does not have any obvious focal neurological deficits. Past Medical/Surgical History Medical Problems: (1) Facial fracture Status: Acute (2) Fall Status: Acute (3) Orbital fracture Status: Acute (4) Syncope Status: Acute Family History Family history is unremarkable for any specific diseases or conditions that would place this patient at increased risk for additional neurological diagnoses or complications the context of her current hospitalization and age. 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[employer]) Allergies Coded Allergies: No Known Allergies (Unverified , 03/18/17) Current Inpatient Medications Current Inpatient Medications Medications (Trade) Dose Ordered Sig/Capo Route Start Time Stop Time Status Last Admin Dose Admin Acetaminophen (Tylenol Tab) 650 mg Q4H PRN PO 03/24/17 18:45 04/23/17 18:44 Al Hydrox/Mg Hydrox/Simethicone (Maalox Max Susp) 15 ml Q4H PRN PO 03/24/17 18:45 04/23/17 18:44 Magnesium Hydroxide (Milk Of Magnesia Susp) 30 ml Q12H PRN PO 03/24/17 18:45 04/23/17 18:44 Ondansetron HCl (Zofran Inj) 4 mg Q6H PRN IV 03/24/17 18:45 04/23/17 18:44 Polyethylene (Miralax Powder Packet) 17 gm DAILY PRN PO 03/24/17 18:45 04/23/17 18:44 Miscellaneous Information (Pharmacist Discharge Med Rec Consult) 1 ea UD PRN N/A 03/24/17 18:45 04/23/17 18:44 Aspirin (Ecotrin Tab) 81 mg QAM PO 03/25/17 09:00 04/24/17 08:59 03/25/17 07:39 81 MG Atenolol (Tenormin Tab) 25 mg QAM PO 03/25/17 09:00 04/24/17 08:59 03/25/17 07:39 25 MG Calcium/Vitamin D (Caltrate Plus Tab) 1 tab BID PO 03/24/17 21:00 04/23/17 20:59 03/25/17 07:40 1 TAB Lisinopril (Zestril Tab) 5 mg QAM PO 03/25/17 09:00 04/24/17 08:59 03/25/17 07:40 5 MG Diphenhydramine HCl (Benadryl Cap) 50 mg HS PO 03/24/17 21:00 04/23/17 20:59 03/24/17 20:36 50 MG Atorvastatin Calcium (Lipitor Tab) 40 mg QAM PO 03/25/17 09:00 04/24/17 08:59 03/25/17 07:39 40 MG Miscellaneous (Iv Fluids Completed) 1 ea PRN PRN N/A 03/24/17 23:45 03/24/18 23:44 Artificial Tears (Artificial Tears) 1 drops BID PRN OP 03/25/17 00:30 04/24/17 00:29 Gadobutrol (Gadavist) 6.5 mmol UD PRN IV 03/25/17 01:00 03/29/17 00:59 Review of Systems Constitutional: No fever or chills Eyes: No vision loss or diplopia Ears: No hearing loss Cardiovascular: No chest pain or palpitations Respiratory: No coughing wheezing or shortness of breath Neurological: As per history of present illness. Patient denies headache. A full 10 point review of systems was obtained in this patient with pertinent positives and negatives described in history of present illness and otherwise listed above. All remaining systems reviewed and are negative. Physical Exam Vital Signs (Past 24 Hrs): Date Time Temp Pulse Resp B/P (MAP) Pulse Ox O2 Delivery O2 Flow Rate FiO2 03/25/17 07:41 37.0 70 20 132/66 (88) 96 Room Air 03/25/17 04:00 Room Air 03/25/17 03:46 36.6 63 18 123/62 (82) 96 Room Air 63 03/25/17 00:18 36.4 60 18 151/67 (95) 94 Room Air 60 03/25/17 00:07 Room Air 03/25/17 00:01 Room Air 03/24/17 20:18 93 Room Air 03/24/17 19:27 36.8 61 20 149/72 (97) 93 Room Air 03/24/17 18:53 37.0 64 18 135/62 98 Room Air The patient is a well-developed, well-nourished, elderly female. She is lying comfortably in bed in no acute distress. She is alert and oriented to person and hospital although misses the day of the week and date. Recent memory mildly impaired, one out of 3 with delayed recall. Remote memory intact. Attention normal. Concentration mildly impaired unable to correctly spell world backwards. Patient is able to name objects and repeat phrases but otherwise has somewhat limited spontaneous speech output. Visual taylor full to confrontation. Visual acuity normal. Pupils equal round reactive to light and accommodation. Eye movements normal. Facial sensation intact bilaterally. There is normal facial symmetry and strength all other is some swelling affecting the left side of the face with signs of her recent orbital trauma. No diplopia with extremes of gaze. Hearing intact bilaterally. Palate elevates to midline. Shoulder shrug strength intact bilaterally. Tongue protrudes to midline. Sensation intact to light touch, temperature, vibration, and proprioception for all 4 limbs. Deep tendon reflexes are intact and symmetrical for the arms and legs. Plantar responses equivocal bilaterally. There is no dysdiadochokinesia or dysmetria with finger to nose or heel to velasquez bilaterally. Ophthalmoscopic examination reveals normal-appearing optic nerves and posterior segments. No papilledema or hemorrhages. Carotid pulses normal bilaterally, no bruits to auscultation. Gait and station not tested due to safety concerns. Patient exhibits normal muscle strength and tone for all 4 limbs. There is no evidence of a hemiparesis. No abnormal movements are observed. Laboratory Results Past 24 Hours: 03/25/17 05:58 Red Blood Count 3.33, Mean Corpuscular Volume 97.9, Mean Corpuscular Hemoglobin 32.7, Mean Corpuscular Hemoglobin Concent 33.4, Mean Platelet Volume 9.2, Neutrophils (%) (Auto) 68.9, Lymphocytes (%) (Auto) 19.6, Monocytes (%) (Auto) 8.4, Eosinophils (%) (Auto) 2.2, Basophils (%) (Auto) 0.6, Neutrophils # (Auto) 4.76, Lymphocytes # (Auto) 1.35, Monocytes # (Auto) 0.58, Eosinophils # (Auto) 0.15, Basophils # (Auto) 0.04 03/25/17 05:58 Test 03/24/17 18:49 03/25/17 05:58 Estimated Average Glucose 114 mg/dl Hemoglobin A1c 5.6 % (4.5-5.6) White Blood Count 6.90 K/uL (4.8-10.8) Red Blood Count 3.33 M/uL (4.2-5.4) Hemoglobin 10.9 g/dL (12.0-16.0) Hematocrit 32.6 % (37-47) Mean Corpuscular Volume 97.9 fL (80-100) Mean Corpuscular Hemoglobin 32.7 pg (25-34) Mean Corpuscular Hemoglobin Concent 33.4 g/dl (32-36) Platelet Count 255 K/uL (130-400) Mean Platelet Volume 9.2 fL (7.4-10.4) Neutrophils (%) (Auto) 68.9 % Lymphocytes (%) (Auto) 19.6 % Monocytes (%) (Auto) 8.4 % Eosinophils (%) (Auto) 2.2 % Basophils (%) (Auto) 0.6 % Neutrophils # (Auto) 4.76 K/uL (1.4-6.5) Lymphocytes # (Auto) 1.35 K/uL (1.2-3.4) Monocytes # (Auto) 0.58 K/uL (0.11-0.59) Eosinophils # (Auto) 0.15 K/uL (0-0.5) Basophils # (Auto) 0.04 K/uL (0-0.2) RDW Standard Deviation 45.2 fL (36.4-46.3) RDW Coefficient of Variation 12.6 % (11.5-14.5) Immature Granulocyte % (Auto) 0.3 % Immature Granulocyte # (Auto) 0.02 K/uL (0.00-0.02) Anion Gap 7.0 mmol/L (3-11) Est Creatinine Clear Calc Drug Dose 70.7 ml/min Estimated GFR () 97.7 Estimated GFR (Non- 84.3 BUN/Creatinine Ratio 24.1 (10-20) Calcium Level 9.3 mg/dl (8.5-10.1) Triglycerides Level 115 mg/dl (0-150) Cholesterol Level 144 mg/dl (0-200) HDL Cholesterol 73 mg/dl LDL Cholesterol, Calculated 48 mg/dl VLDL Cholesterol, Calculated 23 mg/dl Cholesterol/HDL Ratio 2.0 Impression This is an 82-year-old female with a recent history of fall resulting in a left orbital fracture and probably an associated concussion. She has been exhibiting some confusion and poor balance since that time which I suspect is postconcussive in etiology. However, her imaging does suggest extensive, chronic , small vessel ischemic disease and atrophy and she probably has an underlying vascular or mixed dementia as well. Furthermore, there is also evidence of a small, acute, ischemic infarct within the left frontal lobe, adjacent to the lateral ventricle which is new. The significance of this finding in the context of this patient's presentation cannot be known with certainty, however. I do not find any focal neurological deficits that I could attribute to this lesion other than her confusion which is probably multifactorial. Plan I do not have any further immediate neurological recommendations. 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 Please contact me if I may be of further assistance
--- NOTE | 2017-03-25 16:59 | Family Medicine Progress Note ---
Progress Note Date of Service Mar 25, 2017. Subjective Pt evaluation today including: conversation w/ patient, physical exam, chart review, lab review, review of studies, conversation w/ actuarial consultant, review of inpatient medication list Patient sitting comfortably out of bed, she denies acute overnight events. She is alert and oriented 3 although she is following asleep between answers and requiring repetition of questions. She otherwise denies any pain currently: No chest pain, dyspnea, abdominal pain, pain on extraocular eye movement, pain at site of trauma on her face. She denies nausea, vomiting. She is tolerating diet. Her main complaint is generalized weakness in her lower limbs bilaterally. She states she feels unbalanced walking to and from the bathroom. All Other Systems: Reviewed and Negative Objective Vital Signs Date Time Temp Pulse Resp B/P (MAP) Pulse Ox O2 Delivery O2 Flow Rate FiO2 03/25/17 15:44 36.5 64 18 103/58 (73) 98 Room Air 03/25/17 12:10 Room Air 03/25/17 10:47 36.5 68 20 92/56 (68) 96 Room Air 03/25/17 09:37 96 Room Air 03/25/17 07:41 37.0 70 20 132/66 (88) 96 Room Air 03/25/17 04:00 Room Air 03/25/17 03:46 36.6 63 18 123/62 (82) 96 Room Air 63 03/25/17 00:18 36.4 60 18 151/67 (95) 94 Room Air 60 03/25/17 00:07 Room Air 03/25/17 00:01 Room Air 03/24/17 20:18 93 Room Air 03/24/17 19:27 36.8 61 20 149/72 (97) 93 Room Air 03/24/17 18:53 37.0 64 18 135/62 98 Room Air Physical Exam General Appearance: WD/WN, no apparent distress Eyes: normal inspection ENT: hearing grossly normal Neck: supple Respiratory/Chest: lungs clear, no respiratory distress, no accessory muscle use, + decreased breath sounds (Poor inspiratory effort) Cardiovascular: regular rate, rhythm Abdomen: normal bowel sounds, non tender, soft Extremities: no pedal edema, no calf tenderness Neurologic/Psychiatric: adult daycare coordinator II-XII nml as tested, no motor/sensory deficits, alert, oriented x 3 (Requires increased thought and some prompting) Skin: normal color, warm/dry, no rash, + pertinent finding (Laceration and bruising around left. No active bleeding or discharge.) Laboratory Results Results Past 24 Hours Test 03/25/17 05:58 03/26/17 04:44 Range/Units White Blood Count 6.90 4.8-10.8 K/uL Red Blood Count 3.33 4.2-5.4 M/uL Hemoglobin 10.9 12.0-16.0 g/dL Hematocrit 32.6 37-47 % Mean Corpuscular Volume 97.9 80-100 fL Mean Corpuscular Hemoglobin 32.7 25-34 pg Mean Corpuscular Hemoglobin Concent 33.4 32-36 g/dl Platelet Count 255 130-400 K/uL Mean Platelet Volume 9.2 7.4-10.4 fL Neutrophils (%) (Auto) 68.9 % Lymphocytes (%) (Auto) 19.6 % Monocytes (%) (Auto) 8.4 % Eosinophils (%) (Auto) 2.2 % Basophils (%) (Auto) 0.6 % Neutrophils # (Auto) 4.76 1.4-6.5 K/uL Lymphocytes # (Auto) 1.35 1.2-3.4 K/uL Monocytes # (Auto) 0.58 0.11-0.59 K/uL Eosinophils # (Auto) 0.15 0-0.5 K/uL Basophils # (Auto) 0.04 0-0.2 K/uL RDW Standard Deviation 45.2 36.4-46.3 fL RDW Coefficient of Variation 12.6 11.5-14.5 % Immature Granulocyte % (Auto) 0.3 % Immature Granulocyte # (Auto) 0.02 0.00-0.02 K/uL Sodium Level 136 136-145 mmol/L Potassium Level 4.0 3.5-5.1 mmol/L Chloride Level 101 98-107 mmol/L Carbon Dioxide Level 28 21-32 mmol/L Anion Gap 7.0 3-11 mmol/L Blood Urea Nitrogen 15 7-18 mg/dl Creatinine 0.64 0.60-1.20 mg/dl Est Creatinine Clear Calc Drug Dose 70.7 ml/min Estimated GFR () 97.7 Estimated GFR (Non- 84.3 BUN/Creatinine Ratio 24.1 10-20 Random Glucose 93 70-99 mg/dl Calcium Level 9.3 8.5-10.1 mg/dl Triglycerides Level 115 0-150 mg/dl Cholesterol Level 144 0-200 mg/dl HDL Cholesterol 73 mg/dl LDL Cholesterol, Calculated 48 mg/dl VLDL Cholesterol, Calculated 23 mg/dl Cholesterol/HDL Ratio 2.0 Assessment and Plan 82 y/o F Hx HTN, HLD, with recent fall with trauma to head and face including comminuted left orbital floor fracture with displaced fractures of the medial and lateral nevarez of the left orbit, anterior, posterior and medial nevarez of the left maxillary sinus as well as fractures of the left zygomatic arch and left nasal bone. No intervention was deemed necessary and patient was discharged the following day, with intermittent confusion and balance problems since then. She suffered an additional fall without any reported trauma but could not get up by herself. She was evaluated by her PCP who obtained a follow- up CT. which found a 7 mm focal area of low-attenuation within the left frontal lobe is seen which is new from a previous study and may represent a subacute CVA. She was subsequently sent to the hospital for admission and further evaluation. 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 MRI confirmed 7mm acute infarct within the anterior left frontal lobe, as well as left maxillary sinus air-fluid level with hemorrhage and associated fractures of the nevarez of the maxillary sinus, as well as prominence of the extra-axial CSF spaces which suggest subdural hygromas. - Pt admitted with CVA protocol - Continue ASA, and increased dose of atorvastatin - Neuro recommends: no additional change in management, PT/OT/speech therapy, and outpatient follow up in 2-3 weeks for additional monitoring of her neurological status and possible mild vascular dementia. Recent syncope - Following with [facility] cardiology - For 30 day event monitor post discharge HTN - Continue Lisinopril as her symptoms are not acute Facial trauma and fractures secondary to syncope - Follow up with ENT to be rescheduled. VTE PPx - SCDs Dispo - Referrals to both [facility] and [facility], awaiting insurance auth Full code Continued [facility] stay due to: home environment unsafe for pt Discharge planning: rehab hospital, jail facility Resident Tracking Resident Involvement: Resident Care Provided Care Provided: Adult Hospital Medicine Reviewed: Pt Seen/Exam by Me History sitting in chair. denies any concerns Constitutional: denies: fever Respiratory: negative: short of breath Cardiovascular: denies chest pain General Appearance: no apparent distress Respiratory: lungs clear, no respiratory distress Cardiovascular: regular rate, rhythm Gastrointestinal: soft Neurologic/Psychiatric: alert, oriented x 3, other (no focal deficit. noted some memory loss) Skin Characteristics: warm/dry, other (left forehead with stitched laceration) Assessment/Plan Resident Physician Supervision Note: I independently interviewed and examined the patient and verified the sweeney history and physical, reviewed labs and image studies, discussed the case with the resident Dr. Cooper and agree with the findings and care plan.
[2017-03-26] VITALS (9 sets, daily range): BP systolic 105–127; BP diastolic 47–65; PULSE 18–88; TEMP 36.4–36.8; O2SAT 94–98
[2017-03-26 06:34] LABS: BASO % 0.4 %; BASO ABS # 0.03 K/uL (0-0.2); COMPLETE YES; EOS % 2.4 %; HEMATOCRIT 32.9 % (37-47); IG% 0.4 %; LYMPH ABS # 1.39 K/uL (1.2-3.4); MEAN CELL VOLUME 97.3 fL (80-100); MEAN CORPUSCULAR HEMOGLOBIN 32.5 pg (25-34); MEAN CORPUSCULAR HGB CONC 33.4 g/dl (32-36); MEAN PLATELET VOLUME 9.2 fL (7.4-10.4); MONO % 9.9 %; NEUT % 66.9 %; PLATELET COUNT 245 K/uL (130-400); RED BLOOD COUNT 3.38 M/uL (4.2-5.4); WHITE BLOOD COUNT 6.95 K/uL (4.8-10.8)
[2017-03-26 07:08] LABS: BUN/CREATININE RATIO 24.8 (10-20); CALCIUM 9.1 mg/dl (8.5-10.1); CREATININE 0.73 mg/dl (0.60-1.20)
[2017-03-26] MEDS: ATORVASTATIN 40 MG TAB PO SCH (08:07)
[2017-03-26] MEDS: CALCIUM 600MG + VIT D 400 IU TAB PO SCH (08:07)
[2017-03-26] MEDS: LISINOPRIL 5 MG TAB PO SCH (08:07)
[2017-03-26] MEDS: ASPIRIN 81 MG ECTAB PO SCH (08:21)
[2017-03-26] MEDS ORDERED: LPT40 PO (16:00)
--- NOTE | 2017-03-26 16:20 | Discharge Instructions ---
Discharge Instructions Date of Service Mar 26, 2017. Admission Reason for Admission: Altered Mental Status, Tia Discharge Discharge Diagnosis / Problem: Subacute stroke Discharge Goals Goal(s): Decrease discomfort, Improve function, Increase independence, Therapeutic intervention Activity Recommendations Activity Level: Assistance Required Therapies: Physical Therapy, Occupational Therapy . Additional Information Patient informed of condition: Yes Advance Directives: No DNR: No Level of Care: Acute Rehab Communicable Disease: No Prognosis: Stable Todd Catheter: No Instructions / Follow-Up Instructions / Follow-Up 82 y/o F Hx HTN, HLD, with recent fall with trauma to head and face including comminuted left orbital floor fracture with displaced fractures of the medial and lateral nevarez of the left orbit, anterior, posterior and medial nevarez of the left maxillary sinus as well as fractures of the left zygomatic arch and left nasal bone. No intervention was deemed necessary and patient was discharged the following day, with intermittent confusion and balance problems since then. She suffered an additional fall without any reported trauma but could not get up by herself. She was evaluated by her PCP who obtained a follow- up CT. which found a 7 mm focal area of low-attenuation within the left frontal lobe is seen which is new from a previous study and may represent a subacute CVA. She was subsequently sent to the hospital for admission and further evaluation. 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 MRI confirmed 7mm acute infarct within the anterior left frontal lobe, as well as left maxillary sinus air-fluid level with hemorrhage and associated fractures of the nevarez of the maxillary sinus, as well as prominence of the extra-axial CSF spaces which suggest subdural hygromas. CVA protocol was put in place. 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 Recent syncope - Following with [facility] cardiology - For 30 day event monitor post discharge HTN - Lisinopril discontinued for borderline low BP. Monitor BP and can re- introduce if evidence of HTN Facial trauma and fractures secondary to syncope - Sutures removed 03/26/17 - Follow up with ENT to be rescheduled in next week VTE PPx - SCDs Current Hospital Diet Patient's current hospital diet: AHA Diet (Heart Healthy) Discharge Diet Recommended Diet: AHA Diet (Heart Healthy) Pending Studies Studies pending at discharge: no Laboratory Results Hemoglobin A1c Test 03/24/17 18:49 Range/Units Estimated Average Glucose 114 mg/dl Hemoglobin A1c 5.6 4.5-5.6 % Lipid Panel Test 03/25/17 05:58 Range/Units Triglycerides Level 115 0-150 mg/dl Cholesterol Level 144 0-200 mg/dl HDL Cholesterol 73 mg/dl Cholesterol/HDL Ratio 2.0 LDL Cholesterol, Calculated 48 mg/dl Medical Emergencies . Who to Call and When: Medical Emergencies: If at any time you feel your situation is an emergency, please call 911 immediately. . Non-Emergent Contact Non-Emergency issues call your: Primary Care Provider, Neurologist . . "Provider Documentation" section prepared by Lisy Cooper. . Core Measure Problem Core Measures: Stroke Stroke Core Measures Reason no t-PA for Stroke: Treatment not indicated Reason no antithrom by day 2: Treatment not indicated Reason no antithrom at D/C: Treatment not indicated Reason no statin at D/C: Treatment provided - N/A Reason no anticoag w/a fib: Treatment not indicated Resident Tracking Resident Involvement: Resident Care Provided Care Provided: Adult Hospital Medicine
--- NOTE | 2017-03-26 16:32 | Discharge Summary ---
Discharge Summary Date of Service Mar 26, 2017. (Alka. Cooper MD) Discharge Summary Admission Date: Mar 25, 2017 at 09:13 Discharge Date: Mar 26, 2017 Discharge Disposition: Rehab Principal Diagnosis: Subacute stroke Consultations: Neurology (Alka. Cooper MD) Medication Reconciliation New Medications: Atorvastatin (Atorvastatin Calcium) 40 Mg Tab 40 MG PO QAM, #30 TAB 3 Refills Continued Medications: Amoxicillin & Pot Clavulanate (Augmentin 875-125 mg) 1 Tab Tab 875 MG PO BID, #14 TAB Aspirin Enteric Coated (Ecotrin Or Generic) 81 Mg Tab 81 MG PO QAM, TAB Atenolol (Tenormin) 25 Mg Tab 25 MG PO QAM, TAB Calcium/Vitamin D (Os-Matt 500 Plus D) Tab 1 TAB PO BID Diphenhydramine Hcl (Benadryl Allergy) 25 Mg Tab 50 MG PO HS Ibuprofen (Advil) 200 Mg Tab 400 MG PO BID, TAB Multiple Vitamins W/ Minerals (Centrum Silver Ultra Wome) 1 Tab Tab 1 TAB PO QAM Propylene Glycol-Glycerin (Eq Artificial Tears) 1 Dar Dar 1 OPB BID PRN for DRYNESS Discontinued Medications: Lisinopril (Prinivil) 5 Mg Tab 5 MG PO QAM Simvastatin (Zocor) 40 Mg Tab 40 MG PO QPM Discharge Exam Patient well this morning - more alert than she has been previously. She denies any acute overnight events. She continues to complain of weakness in her lower extremities.And occasional lightheadedness. She otherwise denies fevers, headache, chest pain, shortness of breath, abdominal pain, nausea or vomiting. She is tolerating diet. She is voiding and stooling appropriately. Patient believes her balance is not as good as it could be when she ambulate to the bathroom however. ROS unremarkable except as noted above. Physical Exam: General Appearance: WD/WN Eyes: normal inspection ENT: hearing grossly normal Neck: supple Respiratory/Chest: lungs clear, no respiratory distress, no accessory muscle use, + decreased breath sounds (Secondary to poor Inspiratory effort) Cardiovascular: regular rate, rhythm, normal peripheral pulses Abdomen / GI: normal bowel sounds, non tender, soft Extremities: no calf tenderness, no pedal edema Neurologic/Psychiatric: alert, normal mood/affect, oriented x 3 Skin: normal color, warm/dry, no rash, + pertinent finding (Laceration above left eye and some bruising around the orbital region) (Alka. Cooper MD) no more local weakness has been out of bed to bathroom with assistance Review of Systems: Constitutional: No fever Respiratory: No shortness of breath Cardiovascular: No chest pain Physical Exam: General Appearance: no apparent distress Respiratory/Chest: lungs clear, no respiratory distress Cardiovascular: regular rate, rhythm Abdomen / GI: normal bowel sounds, non tender, soft Neurologic/Psychiatric: alert, oriented x 3 Skin: + pertinent finding (left forehead laceration site - stitches removed. wound intact) (Joie Adamson M.D.) Hospital Course 82 y/o F Hx HTN, HLD, with recent fall with trauma to head and face including comminuted left orbital floor fracture with displaced fractures of the medial and lateral nevarez of the left orbit, anterior, posterior and medial nevarez of the left maxillary sinus as well as fractures of the left zygomatic arch and left nasal bone. No intervention was deemed necessary and patient was discharged the following day, with intermittent confusion and balance problems since then. She suffered an additional fall without any reported trauma but could not get up by herself. She was evaluated by her PCP who obtained a follow- up CT. which found a 7 mm focal area of low-attenuation within the left frontal lobe is seen which is new from a previous study and may represent a subacute CVA. She was subsequently sent to the hospital for admission and further evaluation. 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 MRI confirmed 7mm acute infarct within the anterior left frontal lobe, as well as left maxillary sinus air-fluid level with hemorrhage and associated fractures of the nevarez of the maxillary sinus, as well as prominence of the extra-axial CSF spaces which suggest subdural hygromas. CVA protocol was put in place. 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 Recent syncope - Following with [facility] cardiology - For 30 day event monitor post discharge HTN - Lisinopril discontinued for borderline low BP. Monitor BP and can re- introduce if evidence of HTN Facial trauma and fractures secondary to syncope - Sutures removed 03/26/17 - Follow up with ENT to be rescheduled in next week VTE PPx - SCDs Total Time Spent: Less than 30 minutes This includes examination of the patient, discharge planning, medication reconciliation, and communication with other providers. (Alka. Cooper MD) Resident Physician Supervision Note: I independently interviewed and examined the patient and verified the sweeney history and physical, reviewed labs and image studies, discussed the case with the resident Dr. Cooper and agree with the findings and care plan. Total Time Spent: Greater than 30 minutes (35) (Joie Adamson M.D.) Discharge Instructions Please refer to the electronic Patient Visit Report (Discharge Instructions) for additional information. (Alka. Cooper MD) Additional Copies To Jeanmarie Elizalde M.D. Resident Tracking Resident Involvement: Resident Care Provided Care Provided: Adult Hospital Medicine (Alka. Cooper MD)
== END 2017-03-26 17:08 | DRG 64 ==
LOC: C.2T 17:58 → OBSVTOIN 03-25 09:13
PROVIDERS: ADMIT Internal Medicine; ATTEND Family Medicine
DX: I63.8 Other cerebral infarction (principal); I62.03 Nontraumatic chronic subdural hemorrhage; Q23.1 Congenital insufficiency of aortic valve; R26.0 Ataxic gait; R41.0 Disorientation, unspecified; S02.32XD Fracture of orbital floor, left side, subsequent encounter for fracture with routine healing; S02.19XD Other fracture of base of skull, subsequent encounter for fracture with routine healing; S02.40FD Zygomatic fracture, left side, subsequent encounter for fracture with routine healing; S02.2XXD Fracture of nasal bones, subsequent encounter for fracture with routine healing; W19.XXXD Unspecified fall, subsequent encounter; R29.6 Repeated falls; R55 Syncope and collapse; I10 Essential (primary) hypertension; E78.5 Hyperlipidemia, unspecified; F01.50 Vascular dementia, unspecified severity, without behavioral disturbance, psychotic disturbance, mood disturbance, and anxiety; Z91.81 History of falling; Z79.2 Long term (current) use of antibiotics; Z79.82 Long term (current) use of aspirin; Z79.899 Other long term (current) drug therapy

== ENCOUNTER → 2017-03-24 | Outpatient (CLI) | payer OTHER ==
[~2017-03-24] MED LIST changes: +AMOX875T PO; -ASPEC81 PO; +ASPI81TA21 PO; +DIPH1TAB PO; +EYED OPB; +IBUP-1050 PO; +LPT40 PO; -PRED1SUS3 OPL; +PROP1DRO2 OPB
--- NOTE | 2017-03-24 14:02 | DIAGNOSTIC IMAGING REPORT ---
HEAD WITHOUT CONTRAST (CT) CLINICAL HISTORY: 82 years-old Female with F07.81 Post-concussion [id number]. Symptoms are acute in nature. Multiple left facial fractures on comparison study. TECHNIQUE: Multiple axial CT images of the head were obtained without contrast. A dose lowering technique was utilized adhering to the principles of ALARA. CT DOSE: 776.86 mGycm COMPARISON: CT head 03/19/2017 and 03/18/2017. FINDINGS: There is moderate atrophy. Prominence of the extra-axial spaces, notably adjacent to the frontal and parietal lobes appears unchanged, right greater than left is likely secondary to underlying atrophy with chronic subdural collections or cystic hygromas also in the differential, however felt to be less likely. Ill-defined areas of low attenuation are again seen within the subcortical and periventricular white matter of the cerebral hemispheres bilaterally suggesting chronic microvascular ischemic changes. 7 mm focal area of low-attenuation within the left frontal lobe periventricular white matter on image 13 of series 2 is not appreciated on the comparison studies. No acute intracranial hemorrhage, midline shift, intracranial mass or territorial ischemia identified. No calvarial fracture. Mastoid air cells and middle ear cavities are clear. Left-sided facial fractures involving the left inferior and lateral orbital nevarez, anterior and posterior left maxillary nevarez and left hepatic arch redemonstrated. Layering hemorrhage and mucosal thickening of the left maxillary sinus is again seen. IMPRESSION: 1. No acute intracranial hemorrhage or midline shift. 2. 7 mm focal area of low-attenuation within the left frontal lobe periventricular white matter as above may reflect chronic microvascular ischemic changes, however appears new from comparison study and is suspicious for a possible acute or subacute lacunar infarction. 3. Atrophy with chronic microvascular ischemic changes. 4. Multiple left-sided facial fractures again seen. The above report was generated using voice recognition software. It may contain grammatical, syntax or spelling errors. Electronically signed by: Mode Correia M.D. 03/24/2017 2:01 PM Dictated Date/Time: 03/24/2017 1:54 PM
== END | disposition home or self-care (01) ==
LOC: C.CTS 13:26
PROVIDERS: ATTEND Physician Assistant Medical
DX: F07.81 Postconcussional syndrome (principal); R41.844 Frontal lobe and executive function deficit; G31.9 Degenerative disease of nervous system, unspecified; S02.92XD Unspecified fracture of facial bones, subsequent encounter for fracture with routine healing; X58.XXXD Exposure to other specified factors, subsequent encounter

== ENCOUNTER 2017-04-29 09:59 | Emergency (ER) | payer OTHER ==
[~2017-04-29] VITALS: Ht 172.7 cm; Wt 64.1 kg
[~2017-04-29 09:59] MED LIST changes: -AMOX875T PO; -DIPH1TAB PO; +DIPH1TAB87 PO; -EYED OPB; -LISI-729 PO; +LPT40 PO; +PROP1DRO2 OPB; -SIMV40TA2 PO
[2017-04-29 10:08] VITALS: Ht 172.7 cm; Wt 64.1 kg
[2017-04-29 10:13] VITALS: O2SAT 99
[2017-04-29 10:22] LABS: BASO % 0.4 %; BASO ABS # 0.03 K/uL (0-0.2); COMPLETE YES; EOS % 2.1 %; HEMATOCRIT 38.6 % (37-47); IG% 0.3 %; LYMPH % 13.9 %; LYMPH ABS # 1.05 K/uL (1.2-3.4); MEAN CELL VOLUME 98.5 fL (80-100); MEAN CORPUSCULAR HEMOGLOBIN 32.7 pg (25-34); MEAN CORPUSCULAR HGB CONC 33.2 g/dl (32-36); MEAN PLATELET VOLUME 9.5 fL (7.4-10.4); MONO % 10.4 %; NEUT % 72.9 %; PLATELET COUNT 281 K/uL (130-400); RED BLOOD COUNT 3.92 M/uL (4.2-5.4); WHITE BLOOD COUNT 7.57 K/uL (4.8-10.8)
--- NOTE | 2017-04-29 10:32 | DIAGNOSTIC IMAGING REPORT ---
CHEST ONE VIEW PORTABLE CLINICAL HISTORY: CHEST PAIN dyspnea COMPARISON STUDY: 03/24/2017 FINDINGS: Stable moderate emphysematous change. No evidence for cardiac enlargement. Increased parenchymal markings left base felt to be chronic. No acute or interval infiltrate. IMPRESSION: Emphysematous change. Chronic fibrosis. No acute process. The above report was generated using voice recognition software. It may contain grammatical, syntax or spelling errors. Electronically signed by: Titus Judge M.D. 04/29/2017 10:31 AM Dictated Date/Time: 04/29/2017 10:30 AM
[2017-04-29 10:37] LABS: PARTIAL THROMBOPLASTIN RATIO 0.9; PROTHROMBIN TIME (PATIENT) 10.3 SECONDS (9.0-12.0)
[2017-04-29 10:45] LABS: BLOOD UREA NITROGEN 17 mg/dl (7-18); BUN/CREATININE RATIO 21.6 (10-20); CALCIUM 9.2 mg/dl (8.5-10.1); CARBON DIOXIDE 29 mmol/L (21-32); CHLORIDE 102 mmol/L (98-107); CREATININE 0.78 mg/dl (0.60-1.20); GLUCOSE 102 mg/dl (70-99); POTASSIUM 4.4 mmol/L (3.5-5.1); SODIUM 139 mmol/L (136-145)
[2017-04-29 10:50] LABS: ALKALINE PHOSPHATASE 40 U/L (45-117); ALT/SGPT 26 U/L (12-78); AST/SGOT 19 U/L (15-37)
--- NOTE | 2017-04-29 11:13 | EMERGENCY ROOM VISIT NOTE ---
History Report prepared by Makeda: Cally Bauer Under the Supervision of: Christen NaranjoO. First contact with patient: 10:04 Chief Complaint: CHEST PAIN Stated Complaint: CHEST PAIN History of Present Illness The patient is a 82 year old female who presents to the Emergency Room with complaints of an episode of chest pain occurring [employer]. The patient states that she was watching TV when she developed chest pain. She describes her pain as a "dull ache" and states that it spread across her chest. She has had this pain in the past and typically it resolves on its own after about 10 minutes. Today her pain lasted for 40 minutes. It did not radiate into her arm, neck, or back. She denies any other symptoms. She denies headache, weakness, shortness of breath, and palpitations. The patient was brought to the ED by ambulance. She received 4 aspirin en route. She is no longer experiencing any chest pain. 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 A total of 10 systems reviewed and were otherwise negative. Past Medical & Surgical Medical Problems: (1) Altered mental status (2) Borderline hypertension (3) Stroke (4) TIA (transient ischemic attack) (5) Vertigo Surgical Problems: (1) History of cataract surgery Family History Non-pertinent due to advanced age. Social History Smoking Status: Never Smoker Drug Use: none Marital Status: Housing Status: lives alone Occupation Status: retired Current/Historical Medications Scheduled Aspirin Enteric Coated (Ecotrin Or Generic), 81 MG PO QAM Atenolol (Tenormin), 25 MG PO QAM Atorvastatin (Atorvastatin Calcium), 40 MG PO QAM Calcium/Vitamin D (Os-Matt 500 Plus D), 1 TAB PO BID Multiple Vitamins W/ Minerals (Centrum Silver Ultra Wome), 1 TAB PO QAM Scheduled PRN Diphenhydramine Hcl (Benadryl Allergy), 50 MG PO HS PRN for Sleep Propylene Glycol-Glycerin (Eq Artificial Tears), 1 OPB BID PRN for DRYNESS Allergies Coded Allergies: No Known Allergies (Unverified , 04/29/17) Physical Exam Vital Signs Date Time Temp Pulse Resp B/P (MAP) Pulse Ox O2 Delivery O2 Flow Rate FiO2 04/29/17 12:31 36.8 68 18 149/62 98 04/29/17 12:01 126/56 04/29/17 11:59 59 15 98 04/29/17 11:31 126/53 04/29/17 11:29 57 19 96 04/29/17 11:01 125/53 04/29/17 10:59 59 18 96 04/29/17 10:48 62 04/29/17 10:31 126/52 04/29/17 10:29 59 19 97 04/29/17 10:14 99 Room Air 04/29/17 10:13 99 Room Air 04/29/17 10:08 36.8 64 18 135/56 99 Room Air 04/29/17 10:05 135/56 Physical Exam GENERAL: Patient is awake, alert, and in no acute distress. Patient is resting comfortably and showing no signs of anxiety EYES: The conjunctivae are clear. The pupils are round and reactive. EARS, NOSE, MOUTH AND THROAT: The nose is without any evidence of any deformity. Mucous membranes are moist tongue is midline NECK: The neck is nontender and supple. RESPIRATORY: Normal respiratory effort is noted there is no evidence of wheezing rhonchi or rales CARDIOVASCULAR: Regular rate and rhythm noted there no murmurs rubs or gallops normal S1 normal S2 GASTROINTESTINAL: The abdomen is soft. Bowel sounds are present in all quadrants. Abdomen is nontender MUSCULOSKELETAL/EXTREMITIES: There is no evidence of gross deformity full range of motion is noted in the hips and shoulders SKIN: There is no obvious evidence of any rash. There are no petechiae, pallor or cyanosis noted. NEUROLOGIC: Patient is awake alert and oriented x3 Medical Decision & Procedures ER Provider Diagnostic Interpretation: Radiology results as stated below per my review and radiologist interpretation: CHEST ONE VIEW PORTABLE CLINICAL HISTORY: CHEST PAIN dyspnea COMPARISON STUDY: 03/24/2017 FINDINGS: Stable moderate emphysematous change. No evidence for cardiac enlargement. Increased parenchymal markings left base felt to be chronic. No acute or interval infiltrate. IMPRESSION: Emphysematous change. Chronic fibrosis. No acute process. The above report was generated using voice recognition software. It may contain grammatical, syntax or spelling errors. Electronically signed by: Titus Judge M.D. 04/29/2017 10:31 AM Dictated Date/Time: 04/29/2017 10:30 AM Laboratory Results 04/29/17 10:10 Red Blood Count 3.92, Mean Corpuscular Volume 98.5, Mean Corpuscular Hemoglobin 32.7, Mean Corpuscular Hemoglobin Concent 33.2, Mean Platelet Volume 9.5, Neutrophils (%) (Auto) 72.9, Lymphocytes (%) (Auto) 13.9, Monocytes (%) (Auto) 10.4, Eosinophils (%) (Auto) 2.1, Basophils (%) (Auto) 0.4, Neutrophils # (Auto ) 5.52, Lymphocytes # (Auto) 1.05, Monocytes # (Auto) 0.79, Eosinophils # (Auto ) 0.16, Basophils # (Auto) 0.03 04/29/17 10:10 Test 04/29/17 10:10 White Blood Count 7.57 K/uL (4.8-10.8) Red Blood Count 3.92 M/uL (4.2-5.4) Hemoglobin 12.8 g/dL (12.0-16.0) Hematocrit 38.6 % (37-47) Mean Corpuscular Volume 98.5 fL (80-100) Mean Corpuscular Hemoglobin 32.7 pg (25-34) Mean Corpuscular Hemoglobin Concent 33.2 g/dl (32-36) Platelet Count 281 K/uL (130-400) Mean Platelet Volume 9.5 fL (7.4-10.4) Neutrophils (%) (Auto) 72.9 % Lymphocytes (%) (Auto) 13.9 % Monocytes (%) (Auto) 10.4 % Eosinophils (%) (Auto) 2.1 % Basophils (%) (Auto) 0.4 % Neutrophils # (Auto) 5.52 K/uL (1.4-6.5) Lymphocytes # (Auto) 1.05 K/uL (1.2-3.4) Monocytes # (Auto) 0.79 K/uL (0.11-0.59) Eosinophils # (Auto) 0.16 K/uL (0-0.5) Basophils # (Auto) 0.03 K/uL (0-0.2) RDW Standard Deviation 45.5 fL (36.4-46.3) RDW Coefficient of Variation 12.7 % (11.5-14.5) Immature Granulocyte % (Auto) 0.3 % Immature Granulocyte # (Auto) 0.02 K/uL (0.00-0.02) Prothrombin Time 10.3 SECONDS (9.0-12.0) Prothromb Time International Ratio 1.0 (0.9-1.1) Activated Partial Thromboplast Time 24.5 SECONDS (21.0-31.0) Partial Thromboplastin Ratio 0.9 Anion Gap 8.0 mmol/L (3-11) Est Creatinine Clear Calc Drug Dose 58.0 ml/min Estimated GFR () 83.2 Estimated GFR (Non- 71.8 BUN/Creatinine Ratio 21.6 (10-20) Calcium Level 9.2 mg/dl (8.5-10.1) Total Bilirubin 0.7 mg/dl (0.2-1) Direct Bilirubin 0.1 mg/dl (0-0.2) Aspartate Amino Transf (AST/SGOT) 19 U/L (15-37) Alanine Aminotransferase (ALT/SGPT) 26 U/L (12-78) Alkaline Phosphatase 40 U/L (45-117) Troponin I < 0.015 ng/ml (0-0.045) Total Protein 7.3 gm/dl (6.4-8.2) Albumin 3.2 gm/dl (3.4-5.0) Lipase 194 U/L (73-393) Laboratory results per my review. ECG Indication: chest pain Rate (beats per minute): 65 Rhythm: normal sinus Findings: no acute ischemic change, no ectopy Comparison ECG Date: 03/18/17 Change: no significant change ED Course 1004: The patient was evaluated in room B11B. A complete history and physical examination were performed. 1134: I reassessed the patient at this time. She is feeling better and resting comfortably. I discussed the results and treatment plan with the patient. I answered all pertaining questions that she had. She expressed understanding and verbalized agreement. The patient will be discharged home. Medical Decision Differential diagnosis: Etiologies such as cardiac ischemia, aortic dissection, pulmonary embolism, pneumonia, pneumothorax, musculoskeletal, infections, pericarditis, myocarditis , esophageal rupture, gastrointestinal, as well as others were entertained. Nursing notes reviewed. The patient's previous electronic medical records reviewed. The patient is an 82-year-old female who presented to the emergency department for an evaluation of chest discomfort. The patient has been having problems with intermittent chest discomfort which is been ongoing for quite some time. The patient arrives at the emergency Department pain-free. I discussed the patient's laboratory and radiographic studies with her. I discussed the limitations of the emergency department workup for chest pain with her. The patient states that she was told by her primary milieu technician that this pain is not likely cardiac in nature whenever it goes away she should not worry about it. The patient was only concerned because the pain was ongoing longer than usual. The patient was encouraged to rest and avoid any strenuous activity. She was encouraged to continue all medications as prescribed and return to the emergency department if symptoms change worsen or the need arises. Medication Reconcilliation Current Medication List: was personally reviewed by me Blood Pressure Screening Patient's blood pressure: Normal blood pressure Impression Primary Impression: Substernal chest pain Scribe Attestation The scribe's documentation has been prepared under my direction and personally reviewed by me in its entirety. I confirm that the note above accurately reflects all work, treatment, procedures, and medical decision making performed by me. Departure Information Dispostion Home / Self-Care Referrals Jeanmarie Elizalde M.D. (PCP) Forms Call Back Authorization, HOME CARE DOCUMENTATION FORM, IMPORTANT VISIT INFORMATION Patient Instructions ED Chest Pain Atypical Unkn Cause, My [facility] Additional Instructions Call your family to schedule a follow-up appointment. Rest and avoid any strenuous activities. Continue all medications as prescribed. Return to the emergency department immediately if symptoms change worsen in the need arises.
[2017-04-29 12:31] VITALS: BP 149/62; PULSE 68; TEMP 36.8; O2SAT 98
== END 2017-04-29 12:32 | disposition home or self-care (01) ==
LOC: EDBD 09:59 → C.EDB 10:01
DX: R07.2 Precordial pain (principal); I10 Essential (primary) hypertension; Z86.73 Personal history of transient ischemic attack (TIA), and cerebral infarction without residual deficits; Z98.49 Cataract extraction status, unspecified eye; Z79.82 Long term (current) use of aspirin; Z79.899 Other long term (current) drug therapy

== ENCOUNTER 2017-06-27 09:03 | Emergency (ER) | payer OTHER ==
[~2017-06-27] VITALS: Ht 172.7 cm; Wt 66.9 kg
[~2017-06-27 09:03] MED LIST changes: -IBUP-1050 PO
[2017-06-27 09:09] VITALS: TEMP 36.5; Ht 172.7 cm; Wt 66.9 kg
[2017-06-27 09:12] VITALS: O2SAT 97
--- NOTE | 2017-06-27 09:48 | EMERGENCY ROOM VISIT NOTE ---
History First contact with patient: 08:59 Chief Complaint: FALL Stated Complaint: FALL History of Present Illness 82F with a PMHx of two falls in Mar 2017, HTN, HLD and incidentally found lacunar infarct p/w a fall this AM without head trauma or LOC. Patient woke up this morning feeling dizzy, the dizziness worsened to diffuse lower extremity shaking. Patient was unable to maintain LE strength and slid to the ground. She denies any head or limb trauma or LOC. Patient was able to call her daughter prior to her symptoms. Daughter (Ms Bonds) and son in law were present in the room and corroborated parts of the PMHx. Patient has not felt sick recently. She stated she had not eaten breakfast this morning. 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. Never smoker. ROS: No chest pain, no SOB, no dyspnea on exertion, no palpitations, no fevers, no chills, no nausea, no vomiting, no diarrhea, no dysuria, no rash. Review of Systems See HPI for pertinent positives and negatives. A total of ten systems were reviewed and were otherwise negative. Past Medical/Surgical History Medical Problems: (1) Altered mental status (2) Borderline hypertension (3) Stroke (4) TIA (transient ischemic attack) (5) Vertigo Surgical Problems: (1) History of cataract surgery Social History Smoking Status: Never Smoker Drug Use: none Marital Status: Housing Status: lives alone Occupation Status: retired Current/Historical Medications Scheduled Aspirin Enteric Coated (Ecotrin Or Generic), 81 MG PO QAM Atenolol (Tenormin), 25 MG PO QAM Calcium/Vitamin D (Os-Matt 500 Plus D), 1 TAB PO BID Multiple Vitamins W/ Minerals (Centrum Silver Ultra Wome), 1 TAB PO QAM Simvastatin (Simvastatin), 40 MG PO QPM Scheduled PRN Diphenhydramine Hcl (Benadryl Allergy), 50 MG PO HS PRN for Sleep Propylene Glycol-Glycerin (Eq Artificial Tears), 1 OPB BID PRN for DRYNESS Physical Exam Vital Signs Date Time Temp Pulse Resp B/P (MAP) Pulse Ox O2 Delivery O2 Flow Rate FiO2 06/27/17 09:44 66 133/57 65 138/66 77 158/58 06/27/17 09:12 97 Room Air 06/27/17 09:11 70 06/27/17 09:09 36.5 70 18 137/63 97 Room Air Physical Exam Gen: No acute distress. Pt answers questions appropriately but is slow to respond. HEENT: Head - normocephalic and atraumatic. Pupils are equal, round, and reactive to light. Extraocular eye muscles are intact and sclera are anicteric. Ears - bilaterally patent canals with noninjected tympanic membranes and no evidence of hemotympanum. Nose - moist nasal mucosa without discharge. Mouth - moist buccal mucosa. Oropharynx is nonerythematous and there is no tonsillar exudate or edema noted. Neck: Supple; no JVD, nuchal rigidity, cervical lymphadenopathy, or auscultated bruits. Heart: Regular rate and rhythm. There is a normal S1 and S2 with no murmurs, clicks, or gallops appreciated. Lungs: Clear to auscultation bilaterally with no wheezes, rales, or rhonchi. Abdomen: Soft, completely nontender, nondistended, with good bowel sounds. There are no palpable pulsatile masses or hepatosplenomegaly. There is no guarding, rigidity, or rebound noted. Extremities: No evidence of cyanosis, clubbing, or edema. There are easily palpable peripheral pulses. There is a tender L ankle, distal aspect of the gastrocnemius muscle. Neuro:The patient is awake and alert, oriented to day, time, and place. Muscle strength is 5/5 in all 4 extremities. The patient has equal rice drier strength and equal pedal push and pull. Light sensation intact over all extremities. 2+ patellar and 2+ biceps reflexes bilaterally. There are no cerebellar signs. Medical Decision & Procedures ER Provider Diagnostic Interpretation: SINGLE VIEW CHEST CLINICAL HISTORY: Fall. FINDINGS: An AP, portable, upright chest radiograph is compared to study dated 04/29/2017. The examination is degraded by portable technique and patient rotation. The cardiomediastinal silhouette is unremarkable. There is atherosclerotic calcification of the thoracic aorta. Chronic interstitial thickening is similar to previous. There is left basilar atelectasis. No large pleural effusion or pneumothorax is seen. The skeletal structures are osteopenic. The bony thorax is grossly intact. Degenerative change is seen throughout the thoracic spine. IMPRESSION: No acute cardiopulmonary abnormality. CT SCAN OF THE BRAIN WITHOUT IV CONTRAST CLINICAL HISTORY: Fall. COMPARISON STUDY: CT of the brain dated 03/24/2017. TECHNIQUE: Unenhanced axial CT scan of the brain is performed from the vertex to the skull base. A dose lowering technique was utilized adhering to the principles of ALARA. CT DOSE: 614.27 mGy.cm FINDINGS: Brain parenchyma: There are age-related involutional changes noting moderate subcortical and periventricular microangiopathic change. There is no parenchyma hemorrhage, mass effect, or evidence of acute territorial ischemia by CT criteria. Garcia-white matter is preserved. The low-attenuation extra-axial fluid is seen bilaterally on 03/24/2017 has resolved. There is trace slightly dense extra-axial fluid along the right convexity. This measures up to 2 mm in thickness. Ventricles, sulci, cisterns: Prominent secondary to involutional change. Intracranial vasculature: There is atherosclerotic calcification of the cavernous carotid and vertebral arteries. Calvarium: The skeletal structures are osteopenic. No depressed calvarial fracture is seen. There is chronic deformity of the left zygomatic arch. Sinuses and mastoids: The visualized paranasal sinuses are clear. The mastoid air cells are well pneumatized. Orbits: The bony orbits are grossly intact. There are bilateral ocular lens implants. IMPRESSION: 1. There is trace slightly hyperdense extra-axial fluid seen along the right convexity with no associated mass effect. This likely represents trace subdural hematoma and is age indeterminant. The low-attenuation extra-axial fluid seen along both convexities on 03/24/2017 has almost completely resolved. Consider 24-hour CT follow-up for reassessment. 2. There is no parenchymal hemorrhage, mass effect, or evidence of acute territorial ischemia by CT criteria. Laboratory Results 06/27/17 09:50 06/27/17 09:50 Test 06/27/17 09:50 06/27/17 09:56 Red Blood Count 3.99 M/uL (4.2-5.4) Mean Corpuscular Volume 96.7 fL (80-100) Mean Corpuscular Hemoglobin 31.3 pg (25-34) Mean Corpuscular Hemoglobin Concent 32.4 g/dl (32-36) RDW Standard Deviation 45.1 fL (36.4-46.3) RDW Coefficient of Variation 12.9 % (11.5-14.5) Mean Platelet Volume 9.6 fL (7.4-10.4) Anion Gap 8.0 mmol/L (3-11) Est Creatinine Clear Calc Drug Dose 60.3 ml/min Estimated GFR () 87.3 Estimated GFR (Non- 75.3 BUN/Creatinine Ratio 24.4 (10-20) Calcium Level 9.3 mg/dl (8.5-10.1) Total Bilirubin 0.7 mg/dl (0.2-1) Aspartate Amino Transf (AST/SGOT) 16 U/L (15-37) Alanine Aminotransferase (ALT/SGPT) 20 U/L (12-78) Alkaline Phosphatase 28 U/L (45-117) Total Protein 7.2 gm/dl (6.4-8.2) Albumin 3.3 gm/dl (3.4-5.0) Globulin 3.9 gm/dl (2.5-4.0) Albumin/Globulin Ratio 0.9 (0.9-2) Thyroid Stimulating Hormone (TSH) 1.260 uIu/ml (0.300-4.500) Bedside Troponin I < 0.030 ng/ml (0-0.045) Medical Decision The patient's care and disposition was discussed with Dr. Naranjo, Attending ED Physician. This is a 82F with a fall without LOC. Differential diagnosis include vasovagal event, infection, hypoglycemia, electrolyte abnormalities, cardiac sources, intracerebral event, toxicologic, neurologic, as well as others were entertained. Triage Nursing notes were reviewed. ED Course included an extensive history and physical exam, labs and imaging. EKG - normal sinus with normal axis, no ectopy, no ST segment changes, no PVCs. 915 - Pt was seen and examined at bedside. 937 - Case was discussed with Dr. Naranjo and initial orders were placed. 1015 - CT Scan reviewed and discussed with patient and family, a 2mm subdural hematoma was seen on CT. Management options were discussed with daughter at bedside and while conservative management was an option patient and family elected for a neurosurgical consult. 1030 - Spoke with the ER doctor (?Dr. Mills) at [facility] for transfer. They accepted the transfer. Will inform transport to call [facility] when they are 15min out and for [place] to send the CT Images. Patient is on ASA, has a recent fall and a subdural bleed. She will be evaluated by a neurosurgeon for management options. The pt was informed about the findings as listed above. All questions were answered. Impression Primary Impression: Fall Departure Information Dispostion Transfer Acute Care Facility ([facility]) Condition FAIR Referrals Jeanmarie Elizalde M.D. (PCP) Patient Instructions My [facility] Resident Involvement: Resident Care Provided Care Provided: Adult ED
[2017-06-27] MEDS ORDERED: ZCR40 PO (09:50)
--- NOTE | 2017-06-27 09:55 | DIAGNOSTIC IMAGING REPORT ---
SINGLE VIEW CHEST CLINICAL HISTORY: Fall. FINDINGS: An AP, portable, upright chest radiograph is compared to study dated 04/29/2017. The examination is degraded by portable technique and patient rotation. The cardiomediastinal silhouette is unremarkable. There is atherosclerotic calcification of the thoracic aorta. Chronic interstitial thickening is similar to previous. There is left basilar atelectasis. No large pleural effusion or pneumothorax is seen. The skeletal structures are osteopenic. The bony thorax is grossly intact. Degenerative change is seen throughout the thoracic spine. IMPRESSION: No acute cardiopulmonary abnormality. Electronically signed by: Willy Kumar M.D. 06/27/2017 9:54 AM Dictated Date/Time: 06/27/2017 9:53 AM
[2017-06-27 10:09] LABS: HEMATOCRIT 38.6 % (37-47); HEMOGLOBIN 12.5 g/dL (12.0-16.0); MEAN CELL VOLUME 96.7 fL (80-100); MEAN CORPUSCULAR HEMOGLOBIN 31.3 pg (25-34); MEAN CORPUSCULAR HGB CONC 32.4 g/dl (32-36); MEAN PLATELET VOLUME 9.6 fL (7.4-10.4); PLATELET COUNT 262 K/uL (130-400); RED CELL DISTRIBUTION WIDTH CV 12.9 % (11.5-14.5); RED CELL DISTRIBUTION WIDTH SD 45.1 fL (36.4-46.3); WHITE BLOOD COUNT 6.46 K/uL (4.8-10.8)
[2017-06-27] MEDS ORDERED: SODIUM CHLORIDE 0.9% 500ML 500 ML IV STA (10:12)
--- NOTE | 2017-06-27 10:13 | DIAGNOSTIC IMAGING REPORT ---
CT SCAN OF THE BRAIN WITHOUT IV CONTRAST CLINICAL HISTORY: Fall. COMPARISON STUDY: CT of the brain dated 03/24/2017. TECHNIQUE: Unenhanced axial CT scan of the brain is performed from the vertex to the skull base. A dose lowering technique was utilized adhering to the principles of ALARA. CT DOSE: 614.27 mGy.cm FINDINGS: Brain parenchyma: There are age-related involutional changes noting moderate subcortical and periventricular microangiopathic change. There is no parenchyma hemorrhage, mass effect, or evidence of acute territorial ischemia by CT criteria. Garcia-white matter is preserved. The low-attenuation extra-axial fluid is seen bilaterally on 03/24/2017 has resolved. There is trace slightly dense extra-axial fluid along the right convexity. This measures up to 2 mm in thickness. Ventricles, sulci, cisterns: Prominent secondary to involutional change. Intracranial vasculature: There is atherosclerotic calcification of the cavernous carotid and vertebral arteries. Calvarium: The skeletal structures are osteopenic. No depressed calvarial fracture is seen. There is chronic deformity of the left zygomatic arch. Sinuses and mastoids: The visualized paranasal sinuses are clear. The mastoid air cells are well pneumatized. Orbits: The bony orbits are grossly intact. There are bilateral ocular lens implants. IMPRESSION: 1. There is trace slightly hyperdense extra-axial fluid seen along the right convexity with no associated mass effect. This likely represents trace subdural hematoma and is age indeterminant. The low-attenuation extra-axial fluid seen along both convexities on 03/24/2017 has almost completely resolved. Consider 24-hour CT follow-up for reassessment. 2. There is no parenchymal hemorrhage, mass effect, or evidence of acute territorial ischemia by CT criteria. Electronically signed by: Willy Kumar M.D. 06/27/2017 10:12 AM Dictated Date/Time: 06/27/2017 10:07 AM
[2017-06-27 10:18] LABS: ALBUMIN 3.3 gm/dl (3.4-5.0); CALCIUM 9.3 mg/dl (8.5-10.1); CREATININE 0.75 mg/dl (0.60-1.20); POTASSIUM 4.2 mmol/L (3.5-5.1)
--- NOTE | 2017-06-27 10:21 | EMERGENCY ROOM VISIT NOTE ---
History Report prepared by Makeda: Sarah Huerta Under the Supervision of: Dr. Elmer Naranjo M.D. First contact with patient: 08:59 Chief Complaint: FALL Stated Complaint: FALL History of Present Illness The patient is a 82 year old female who presents to the Emergency Room with complaints of a fall this morning when she was doing laundry. When she got up this morning she did not feel well, and while doing laundry, she started shaking. She states she grabbed onto the table and slowly went down. She states she has never had any episodes like this one as her history of falls in late March and early April were syncope episodes and although they were worked up extensively, nothing was found. She denies losing consciousness. The patient notes she has distal left calf pain. She states she did not eat before all this happened and claims she might be a little dehydrated. She feels "fine" now. Source of History: patient Onset: this morning Position: other (global ) Quality: other (fall) Associated Symptoms: No chest pain, No SOB, No abdominal pain, No diarrhea Note: distal left calf pain Review of Systems See HPI for pertinent positives & negatives. A total of 10 systems reviewed and were otherwise negative. Past Medical & Surgical Medical Problems: (1) Altered mental status (2) Borderline hypertension (3) Stroke (4) TIA (transient ischemic attack) (5) Vertigo Surgical Problems: (1) History of cataract surgery Social History Smoking Status: Never Smoker Drug Use: none Marital Status: Housing Status: lives alone Occupation Status: retired Current/Historical Medications Scheduled Aspirin Enteric Coated (Ecotrin Or Generic), 81 MG PO QAM Atenolol (Tenormin), 25 MG PO QAM Calcium/Vitamin D (Os-Matt 500 Plus D), 1 TAB PO BID Multiple Vitamins W/ Minerals (Centrum Silver Ultra Wome), 1 TAB PO QAM Simvastatin (Simvastatin), 40 MG PO QPM Scheduled PRN Diphenhydramine Hcl (Benadryl Allergy), 50 MG PO HS PRN for Sleep Propylene Glycol-Glycerin (Eq Artificial Tears), 1 OPB BID PRN for DRYNESS Allergies Coded Allergies: No Known Allergies (Unverified , 06/27/17) Physical Exam Vital Signs Date Time Temp Pulse Resp B/P (MAP) Pulse Ox O2 Delivery O2 Flow Rate FiO2 06/27/17 11:21 61 18 164/57 100 06/27/17 10:39 64 18 142/54 97 Room Air 06/27/17 09:44 66 133/57 65 138/66 77 158/58 06/27/17 09:12 97 Room Air 06/27/17 09:11 70 06/27/17 09:09 36.5 70 18 137/63 97 Room Air Physical Exam GENERAL: Patient is a healthy-appearing well-nourished female HEAD: Normocephalic atraumatic EYES: Ocular movements intact pupils equal and react to light OROPHARYNX mucous membranes are moist no exudates present no erythema or edema present NECK: Supple no nuchal rigidity CHEST: Good equal expansion LUNGS: Clear and equal to auscultation CARDIAC: Normal S1 and S2 ABDOMEN: Soft nontender no guarding BACK: No CVA tenderness EXTREMITIES: No pain upon palpation normal muscle strength in all groups no clubbing cyanosis or edema NEURO: Patient is following commands and answering questions appropriately. Alert and oriented x3 Cranial Nerves 2-12 grossly intact Medical Decision & Procedures ER Provider Diagnostic Interpretation: Radiology results as stated below per my review and radiologist interpretation: CT SCAN OF THE BRAIN WITHOUT IV CONTRAST CLINICAL HISTORY: Fall. COMPARISON STUDY: CT of the brain dated 03/24/2017. TECHNIQUE: Unenhanced axial CT scan of the brain is performed from the vertex to the skull base. A dose lowering technique was utilized adhering to the principles of ALARA. CT DOSE: 614.27 mGy.cm FINDINGS: Brain parenchyma: There are age-related involutional changes noting moderate subcortical and periventricular microangiopathic change. There is no parenchyma hemorrhage, mass effect, or evidence of acute territorial ischemia by CT criteria. Garcia-white matter is preserved. The low-attenuation extra-axial fluid is seen bilaterally on 03/24/2017 has resolved. There is trace slightly dense extra-axial fluid along the right convexity. This measures up to 2 mm in thickness. Ventricles, sulci, cisterns: Prominent secondary to involutional change. Intracranial vasculature: There is atherosclerotic calcification of the cavernous carotid and vertebral arteries. Calvarium: The skeletal structures are osteopenic. No depressed calvarial fracture is seen. There is chronic deformity of the left zygomatic arch. Sinuses and mastoids: The visualized paranasal sinuses are clear. The mastoid air cells are well pneumatized. Orbits: The bony orbits are grossly intact. There are bilateral ocular lens implants. IMPRESSION: 1. There is trace slightly hyperdense extra-axial fluid seen along the right convexity with no associated mass effect. This likely represents trace subdural hematoma and is age indeterminant. The low-attenuation extra-axial fluid seen along both convexities on 03/24/2017 has almost completely resolved. Consider 24-hour CT follow-up for reassessment. 2. There is no parenchymal hemorrhage, mass effect, or evidence of acute territorial ischemia by CT criteria. Electronically signed by: Willy Kumar M.D. 06/27/2017 10:12 AM Dictated Date/Time: 06/27/2017 10:07 AM SINGLE VIEW CHEST CLINICAL HISTORY: Fall. FINDINGS: An AP, portable, upright chest radiograph is compared to study dated 04/29/2017. The examination is degraded by portable technique and patient rotation. The cardiomediastinal silhouette is unremarkable. There is atherosclerotic calcification of the thoracic aorta. Chronic interstitial thickening is similar to previous. There is left basilar atelectasis. No large pleural effusion or pneumothorax is seen. The skeletal structures are osteopenic. The bony thorax is grossly intact. Degenerative change is seen throughout the thoracic spine. IMPRESSION: No acute cardiopulmonary abnormality. Electronically signed by: Willy Kumar M.D. 06/27/2017 9:54 AM Dictated Date/Time: 06/27/2017 9:53 AM LEFT FEMUR 3 VIEWS CLINICAL HISTORY: Left hip pain. FINDINGS: AP, frog-leg, and lateral views of the left femur are obtained. No prior studies are available for comparison at the time of dictation. The skeletal structures are osteopenic. There is no radiographic evidence of left femoral fracture. The visualized left hemipelvis appears intact. Arthritic change is noted in the hip and knee joints. Enthesophytes arise from the greater trochanter. The overlying soft tissues are within normal limits. Atherosclerotic calcification is seen in the left femoral artery. IMPRESSION: Osteopenia with no radiographic evidence of left femoral fracture. Electronically signed by: Willy Kumar M.D. 06/27/2017 10:41 AM Dictated Date/Time: 06/27/2017 10:40 AM SINGLE VIEW PELVIS CLINICAL HISTORY: Left hip pain. FINDINGS: An AP pelvic radiograph is obtained. No prior studies are available for comparison at the time of dictation. The skeletal structures are osteopenic. There is no radiographic evidence of fracture involving the hips or bony pelvis. Mild to moderate arthritic change is present in both hips, left greater than right. Bony overgrowth is seen along the left acetabular roof. Enthesophytes arise from the greater trochanters of the proximal femora and the anterior superior iliac spine bilaterally. Mild sclerotic change is noted in the sacroiliac joints. Lumbosacral spondylosis is partially imaged. The overlying soft tissues are normal as imaged. There is a nonobstructed bowel gas pattern noting rectosigmoid fecal retention. IMPRESSION: Osteopenia and degenerative change as above. There is no radiographic evidence of fracture involving the hips or bony pelvis. Electronically signed by: Willy Kumar M.D. 06/27/2017 10:39 AM Dictated Date/Time: 06/27/2017 10:38 AM Laboratory Results 06/27/17 09:50 06/27/17 09:50 Test 06/27/17 09:50 06/27/17 09:56 06/27/17 10:45 Red Blood Count 3.99 M/uL (4.2-5.4) Mean Corpuscular Volume 96.7 fL (80-100) Mean Corpuscular Hemoglobin 31.3 pg (25-34) Mean Corpuscular Hemoglobin Concent 32.4 g/dl (32-36) RDW Standard Deviation 45.1 fL (36.4-46.3) RDW Coefficient of Variation 12.9 % (11.5-14.5) Mean Platelet Volume 9.6 fL (7.4-10.4) Anion Gap 8.0 mmol/L (3-11) Est Creatinine Clear Calc Drug Dose 60.3 ml/min Estimated GFR () 87.3 Estimated GFR (Non- 75.3 BUN/Creatinine Ratio 24.4 (10-20) Calcium Level 9.3 mg/dl (8.5-10.1) Total Bilirubin 0.7 mg/dl (0.2-1) Aspartate Amino Transf (AST/SGOT) 16 U/L (15-37) Alanine Aminotransferase (ALT/SGPT) 20 U/L (12-78) Alkaline Phosphatase 28 U/L (45-117) Total Protein 7.2 gm/dl (6.4-8.2) Albumin 3.3 gm/dl (3.4-5.0) Globulin 3.9 gm/dl (2.5-4.0) Albumin/Globulin Ratio 0.9 (0.9-2) Thyroid Stimulating Hormone (TSH) 1.260 uIu/ml (0.300-4.500) Bedside Troponin I < 0.030 ng/ml (0-0.045) Urine Color YELLOW Urine Appearance CLEAR (CLEAR) Urine pH 8.0 (4.5-7.5) Urine Specific Lilly 1.013 (1.000-1.030) Urine Protein NEG (NEG) Urine Glucose (UA) NEG (NEG) Urine Ketones NEG (NEG) Urine Occult Blood NEG (NEG) Urine Nitrite NEG (NEG) Urine Bilirubin NEG (NEG) Urine Urobilinogen NEG (NEG) Urine Leukocyte Esterase NEG (NEG) Influenza Type A Antigen Neg for Influ A (NEG) Influenza Type B Antigen Neg for Influ B (NEG) Medications Administered Medications (Trade) Dose Ordered Sig/Capo Route Start Time Stop Time Status Last Admin Dose Admin Sodium Chloride 500 ml @ 999 mls/hr Q31M STAT IV 06/27/17 10:12 06/27/17 10:42 DC 06/27/17 10:37 999 MLS/HR ECG Indication: syncope Rate (beats per minute): 67 Rhythm: normal sinus Findings: no acute ischemic change, no ectopy Change: Patient's electrocardiogram per my interpretation. ED Course 0930: Past medical records reviewed. The patient was evaluated in room B11 by the resident. A complete history and physical examination was performed. 1002: Past medical records reviewed. The patient was evaluated in room B11. A complete history and physical examination was performed. 1022: The patient was reevaluated by me at this time. 1030: I discussed the patient's case with Dr. Mills, he has agreed to accept the patient as a transfer to [facility]. Ordered: 1012: Sodium chloride, 500 ml @999 mls/hr Medical Decision Differential diagnosis: Etiologies such as vasovagal event, infection, hypoglycemia, electrolyte abnormalities, cardiac sources, intracerebral event, toxicologic, neurologic, as well as others were entertained. Resident Physician Supervision Note: I interviewed and examined the patient. Discussed with Dr. Barkley and agree with findings and plan as documented in the note. Documented By: Elmer Naranjo This is an 82-year-old female who presents emergency department with a progressive deterioration over the past several weeks. She's had multiple falls at home and the CAT scan of her head today is concerning for subdural hematoma. Based on the fact that I feel that the patient is not doing well lately, discussed options with patient's daughter who asked that the patient be transferred to [place] to see neurosurgeon as well as a neurologist. Consults Time Called: 1025 Consulting Physician: Dr. Mills - [facility] Returned Call: 1030 I discussed the patient's case with Dr. Mills, he has agreed to accept the patient as a transfer to [facility]. Impression Primary Impression: Fall Additional Impression: Subdural hematoma Scribe Attestation The scribe's documentation has been prepared under my direction and personally reviewed by me in its entirety. I confirm that the note above accurately reflects all work, treatment, procedures, and medical decision making performed by me. Departure Information Dispostion Transfer Acute Care Facility Referrals Jeanmarie Elizalde M.D. (PCP) Patient Instructions My [facility] Problem Qualifiers Primary Impression: Fall Encounter type: initial encounter Qualified Codes: W19.XXXA - Unspecified fall, initial encounter
[2017-06-27 10:29] LABS: TOTAL PROTEIN 7.2 gm/dl (6.4-8.2)
--- NOTE | 2017-06-27 10:41 | DIAGNOSTIC IMAGING REPORT ---
SINGLE VIEW PELVIS CLINICAL HISTORY: Left hip pain. FINDINGS: An AP pelvic radiograph is obtained. No prior studies are available for comparison at the time of dictation. The skeletal structures are osteopenic. There is no radiographic evidence of fracture involving the hips or bony pelvis. Mild to moderate arthritic change is present in both hips, left greater than right. Bony overgrowth is seen along the left acetabular roof. Enthesophytes arise from the greater trochanters of the proximal femora and the anterior superior iliac spine bilaterally. Mild sclerotic change is noted in the sacroiliac joints. Lumbosacral spondylosis is partially imaged. The overlying soft tissues are normal as imaged. There is a nonobstructed bowel gas pattern noting rectosigmoid fecal retention. IMPRESSION: Osteopenia and degenerative change as above. There is no radiographic evidence of fracture involving the hips or bony pelvis. Electronically signed by: Willy Kumar M.D. 06/27/2017 10:39 AM Dictated Date/Time: 06/27/2017 10:38 AM
--- NOTE | 2017-06-27 10:43 | DIAGNOSTIC IMAGING REPORT ---
LEFT FEMUR 3 VIEWS CLINICAL HISTORY: Left hip pain. FINDINGS: AP, frog-leg, and lateral views of the left femur are obtained. No prior studies are available for comparison at the time of dictation. The skeletal structures are osteopenic. There is no radiographic evidence of left femoral fracture. The visualized left hemipelvis appears intact. Arthritic change is noted in the hip and knee joints. Enthesophytes arise from the greater trochanter. The overlying soft tissues are within normal limits. Atherosclerotic calcification is seen in the left femoral artery. IMPRESSION: Osteopenia with no radiographic evidence of left femoral fracture. Electronically signed by: Willy Kumar M.D. 06/27/2017 10:41 AM Dictated Date/Time: 06/27/2017 10:40 AM
[2017-06-27 11:13] LABS: INFLUENZA B ANTIGEN Neg for Influ B (NEG)
[2017-06-27 11:21] VITALS: BP 164/57; PULSE 61; O2SAT 100
== END 2017-06-27 11:22 | disposition short-term general hospital (02) ==
LOC: EDBD 09:03 → C.EDB 09:05
DX: S06.5X0A Traumatic subdural hemorrhage without loss of consciousness, initial encounter (principal); W19.XXXA Unspecified fall, initial encounter; I10 Essential (primary) hypertension; E78.5 Hyperlipidemia, unspecified; Z79.82 Long term (current) use of aspirin; Z86.73 Personal history of transient ischemic attack (TIA), and cerebral infarction without residual deficits

== ENCOUNTER → 2017-09-22 | Outpatient (CLI) | payer OTHER ==
[~2017-09-22] MED LIST changes: +ASPI-319 PO; -ASPI81TA21 PO; -LPT40 PO; +ZCR40 PO
--- NOTE | 2017-09-23 07:51 | MAMMOGRAPHY REPORT ---
BILATERAL DIGITAL SCREENING MAMMOGRAM TOMOSYNTHESIS WITH CAD: 09/22/2017 CLINICAL HISTORY: Routine screening. Patient has no complaints. TECHNIQUE: Breast tomosynthesis in addition to standard 2D mammography was performed. Current study was also evaluated with a Computer Aided Detection (CAD) system. COMPARISON: Comparison is made to exams dated: 06/27/2016 mammogram, 06/25/2015 mammogram, 06/23/2014 m ammogram, and 06/22/2013 mammogram - [facility]. BREAST COMPOSITION: There are scattered areas of fibroglandular density in both breasts. FINDINGS: The parenchymal pattern is similar to prior mammograms. There are benign coarse calcifica tions in the right breast. No developing mass, architectural distortion or cluster of suspicious shola rocalcifications is seen in either breast. IMPRESSION: ACR BI-RADS CATEGORY 2: BENIGN There is no mammographic evidence of malignancy. A 1 year screening mammogram is recommended. The pa tient will receive written notification of the results. Approximately 10% of breast cancers are not detected with mammography. A negative mammographic report should not delay biopsy if a clinically suggestive mass is present. Janny Garcia M.D. ay/:09/22/2017 16:25:53 Railroad Design Consultant: Jennifer GARCIA(Jossie)(M), [facility] letter sent: Normal 1/2 BI-RADS Code: ACR BI-RADS Category 2: Benign
== END | disposition home or self-care (01) ==
LOC: C.MAMM 11:04
PROVIDERS: ATTEND Internal Medicine
DX: Z12.31 Encounter for screening mammogram for malignant neoplasm of breast (principal)

== ENCOUNTER 2019-05-11 21:29 | Inpatient (IN) ==
[2019-05-11] MEDS ORDERED: MoRPHine SULFATE 2 MG/ML CARP IV STA (22:03)
[2019-05-11] MEDS ORDERED: ONDANSETRON INJ 2 MG/ML 2 ML VIAL IV STA (22:03)
[2019-05-11 22:48] LABS: Basophils # (auto) 0.02 K/uL (0-0.2); Basophils % (auto) 0.2 %; Eosinophils # (auto) 0.04 K/uL (0-0.5); Eosinophils % (auto) 0.5 %; Hematocrit (blood only) 35.5 % (37-47); Hemoglobin 11.5 g/dL (12.0-16.0); Immature Granulocytes # (auto) 0.01 K/uL (0.00-0.02); Immature Granulocytes % (auto) 0.1 %; Lymphocytes # (auto) 1.57 K/uL (1.2-3.4); Lymphocytes % (auto) 18.2 %; Mean Corpuscular Hgb Conc 32.4 g/dL (32-36); Mean Corpuscular Volume 98.9 fL (80-100); Mean Platelet Volume 9.8 fL (7.4-10.4); Monocytes # (auto) 0.66 K/uL (0.11-0.59); Monocytes % (auto) 7.6 %; Neutrophils # (auto) 6.35 K/uL (1.4-6.5); Neutrophils % (auto) 73.4 %; Platelet Count 242 K/uL (130-400); RDW Coefficient of Variation 12.6 % (11.5-14.5); RDW Standard Deviation 45.5 fL (36.4-46.3); Red Blood Count 3.59 M/uL (4.2-5.4); White Blood Count 8.65 K/uL (4.8-10.8)
[2019-05-11 23:06] LABS: BUN Creatinine Ratio 28.3 (10-20); Calcium 9.2 mg/dl (8.5-10.1); Creatinine Clr Calc Pharmacy 52.7 ml/min; Est GFR (African American) 76.1; Est GFR (Non-African American) 65.7; Potassium 3.8 mmol/L (3.5-5.1)
[2019-05-11 23:11] LABS: Albumin Globulin Ratio 0.9 (0.9-2); Albumin Level 3.4 gm/dl (3.4-5.0); Bilirubin,Total 0.6 mg/dl (0.2-1); Globulin 3.6 gm/dl (2.5-4.0)
[2019-05-12] MEDS ORDERED: ACETAMINOPHEN 325 MG TAB PO PRN (01:37)
[2019-05-12] MEDS ORDERED: MoRPHine SULFATE 2 MG/ML CARP IV PRN (01:37)
[2019-05-12] MEDS ORDERED: ENOXAPARIN INJ 40 MG/0.4 ML SYR SQ SCH (01:37)
[2019-05-12] MEDS ORDERED: ONDANSETRON INJ 2 MG/ML 2 ML VIAL IV PRN (01:37)
[2019-05-12] MEDS ORDERED: TRAMADOL HCL 50 MG TABLET PO PRN (01:37)
--- NOTE | 2019-05-12 01:48 | Emergency Department Note ---
Entered by Madison Beauchamp acting as a scribe for Blake Walls MD History of Present Illness General Chief complaint: Leg Injury/Pain Stated complaint: LEG PAIN, UNABLE TO AMBULATE Time Seen by Provider: 05/11/19 21:53 Source: patient and family History of Present Illness Onset (ago): hour(s) (4) Location: hip Radiation: other (left leg) Maximum Pain Intensity: 7 Quality: + sharp Relieved By: + movement Associated symptoms: + denies other symptoms (back pain, abdominal pain, loss of control of bowel or bladder); no chest pain, no fever/chills and no shortness of breath The patient is a 84 year old female who presents to the Emergency Room with complaints of sharp hip pain beginning 4 hours ago. The patient states the pain is worse in her left hip and radiates down into her left leg. She notes increased pain with movement. She reports leg weakness but states this is due to the pain. She denies any numbness. The patient denies chest pain, back pain, abdominal pain, shortness of breath, fever, and loss of control of bowel or bladder. The patient's family member states she has been complaining of similar bilateral leg pain for a while, but notes it has never been this debilitating. There is no history of recent injury. The patient's family member notes the patient's normal walking is short half-step shuffling, but states it is much worse today with the patient hardly able to walk. The patient has had no swelling to the leg except for her chronic intermittent ankle swelling which is normal for her. Home Medications Home Medications Medication Instructions Recorded Confirmed Type atenolol 25 mg PO DAILY 09/09/18 05/11/19 History multivitamin 1 tab PO DAILY 09/09/18 05/11/19 History simvastatin 40 mg PO QPM 09/09/18 05/11/19 History aspirin 81 mg tablet 81 mg PO DAILY tab 03/22/19 05/11/19 History calcium carbonate 600 mg (1,500 1 tab PO BID tab 03/22/19 05/11/19 History mg)-vitamin D3 200 unit tablet Allergies Allergy/AdvReac Type Severity Reaction Status Date / Time No Known Allergies Allergy Unverified 09/09/18 13:04 Past Med/Surg History Medical History Altered mental status Borderline hypertension (Chronic) Fall (Acute) Stroke Subdural hematoma (Acute) TIA (transient ischemic attack) Surgical History No pertinent past surgical history Family History Other No significant past surgical history Social History Preferred Language: Nicaraguan Communication Ability: Effective 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 and A total of 10 systems reviewed and were otherwise negative Physical Exam Vital Signs Vital Signs - 24 hr 05/11/19 21:46 05/11/19 23:02 Temperature 36.5 C Temperature Source Oral Pulse Rate 58 L Pulse Rate [Finger] 59 L Respiratory Rate 18 18 Respiratory Effort / Characteristics Non-Labored Respiratory Depth Normal Blood Pressure 148/62 H Blood Pressure [Right Arm] 137/69 Blood Pressure Mean 90 Blood Pressure Mean [Right Arm] 91 Blood Pressure Position Lying Pulse Oximetry 97 97 Oxygen Delivery Method Room Air Room Air Sepsis Recent Fever Within 48 Hours No Sepsis Action Taken by Nursing No Action Required Constitutional: Vital signs reviewed. Eyes: Pupils are equal round reactive to light. Conjunctiva are noninjected. ENT: Pharynx is clear without erythema or exudate. Mucous membranes are moist. Neck supple without meningeal signs. Respiratory: Clear to auscultation bilaterally. Breath sounds are equal bilaterally. Cardiovascular: Regular rate and rhythm. No rubs or gallops. GI: Soft, nondistended and nontender. Bowel sounds are present. Musculoskeletal: No peripheral edema. Mild bilateral hip tenderness with no erythema or increased warmth. No midline tenderness to the thoracic or lumbar spine. No calf or thigh tenderness. Positive straight leg raise. Neurological: The patient is awake and alert. No focal deficits. Psychiatric: Normal affect. Course Course 2154: Past medical records reviewed. The patient was evaluated in room A11A. A complete history and physical exam was performed. 0: Upon reevaluation, the patient refused pain medication. I discussed the test results with the patient and her family. The patient was not able to get up and ambulate, and will need to be hospitalized for placement. 2342: I discussed findings and results with the patient. She verbalized agreement of the treatment plan. I spoke with Dr. Wayne of the [facility] Hospitalist Service. The patient will be evaluated for further management and care. Administered Medications Discontinued Medications Morphine Sulfate (Morphine Sulfate) 2 mg IV NOW STA Stop: 05/11/19 22:04 Last Admin: 05/11/19 23:05 Dose: Not Given Documented by: [id number] Ondansetron HCl (Zofran) 4 mg IV NOW STA Stop: 05/11/19 22:04 Last Admin: 05/11/19 23:05 Dose: Not Given Documented by: [id number] Medical Decision Making Differential Diagnosis Differential diagnosis: lumbar disc disease, arthritis, pathologic fracture, ambulatory dysfunction Medical Records Attestation: I reviewed the patient's medical records. I did perform a limited focused review of portions of the patient's old chart on the electronic medical record. The patient fell and hurt both of her hips in A pril. Home Medications Current Medication List: was personally reviewed by me Laboratory Data Attestation: I reviewed the patient's lab results. Result diagrams: 05/11/19 22:25 05/11/19 22:25 Lab Results 05/11/19 05/11/19 Range/Units 22:25 22:25 WBC 8.65 (4.8-10.8) K/uL RBC 3.59 L (4.2-5.4) M/uL Hgb 11.5 L (12.0-16.0) g/dL Hct 35.5 L (37-47) % MCV 98.9 (80-100) fL MCH 32.0 (25-34) pg MCHC 32.4 (32-36) g/dL RDW Std Deviation 45.5 (36.4-46.3) fL RDW Coeff of Harmony 12.6 (11.5-14.5) % Plt Count 242 (130-400) K/uL MPV 9.8 (7.4-10.4) fL Immature Gran % (Auto) 0.1 % Neut % (Auto) 73.4 % Lymph % (Auto) 18.2 % [place] % (Auto) 7.6 % Eos % (Auto) 0.5 % Baso % (Auto) 0.2 % Immature Gran # (Auto) 0.01 (0.00-0.02) K/uL Neut # (Auto) 6.35 (1.4-6.5) K/uL Lymph # (Auto) 1.57 (1.2-3.4) K/uL [place] # (Auto) 0.66 H (0.11-0.59) K/uL Eos # (Auto) 0.04 (0-0.5) K/uL Baso # (Auto) 0.02 (0-0.2) K/uL Sodium 141 (136-145) mmol/L Potassium 3.8 (3.5-5.1) mmol/L Chloride 109 H (98-107) mmol/L Carbon Dioxide 25 (21-32) mmol/L Anion Gap 7.0 (3-11) BUN 24 H (7-18) mg/dl Creatinine 0.83 (0.6-1.2) mg/dl Est Cr Clr Drug Dosing 52.7 ml/min Est GFR ( Amer) 76.1 Est GFR (Non-Af Amer) 65.7 BUN/Creatinine Ratio 28.3 H (10-20) Glucose 110 H (70-99) mg/dl Calcium 9.2 (8.5-10.1) mg/dl Total Bilirubin 0.6 (0.2-1) mg/dl AST 15 (15-37) U/L ALT 19 (12-78) U/L Alkaline Phosphatase 29 L (45-117) U/L Total Protein 7.0 (6.4-8.2) gm/dl Albumin 3.4 (3.4-5.0) gm/dl Globulin 3.6 (2.5-4.0) gm/dl Albumin/Globulin Ratio 0.9 (0.9-2) Imaging Data Attestation: I personally reviewed and interpreted this imaging study as follows: My Impression: XR Lumbar Spine: degenerative disc disease, no fracture, scoliosis, listhesis of L4 and L5 XR hip with pelvis: no fracture or dislocation Blood Pressure Blood Pressure Findings: Elevated blood pressure Blood Pressure Disposition: further management by hospitalist [facility] Narrative I did evaluate the patient as noted above. The patient is presenting with ambulatory dysfunction due to left leg pain. There is no sign of DVT to the leg. She has had similar leg pain in both the right and left leg for a long time but it has never been this debilitating to the point where she cannot walk or care for herself. She denies any recent trauma. IV access was established. I did order IV morphine and Zofran but the patient declined it. I did order and personally reviewed the images of the patient's lumbar spine and pelvis and hip x-rays as described above. Per my interpretation she has degenerative disc disease with anterior listhesis of L4 and L5. There is scoliosis but no sami dence of acute fracture. She has no signs of acute fracture or dislocation to the hip or pelvis. I did order and review the patient's blood work as noted in the electronic medical record. She has chronic anemia. There is no leukocytosis to suggest an infection. Electrolytes are unremarkable. I did discuss the test results with the patient. As the patient is unable to care for herself at home she will require placement. I did speak to the wrapper caser and we were not able to get her into a rehabilitation hospital [facility]. She will be hospitalized here for further care. I did discuss the case with the hospitalist. Impression & Plan Left leg pain, Ambulatory dysfunction, Degenerative disc disease, Anemia Discharge Plan Visit Data *Final* Discharge Date/Time: 05/12/19 01:22 Chief Complaint: Leg Injury/Pain Stated Complaint: LEG PAIN, UNABLE TO AMBULATE ED Provider: Blake Walls Discharge Problem: Left leg pain, Ambulatory dysfunction, Degenerative disc disease, Anemia Patient Disposition: Admitted As Inpatient Discharge Instructions Interventions: ED Discharge Assessment Last Done: 05/12/19 01:22 Discharge Problem: Degenerative disc disease Qualifiers: Spinal region: lumbar Qualified Code(s): M51.36 - Other intervertebral disc degeneration, lumbar region Anemia Qualifiers: Anemia type: unspecified type Qualified Code(s): D64.9 - Anemia, unspecified The laineyibeunice's documentation has been prepared under my direction and personally reviewed by me in its entirety. I confirm that the note above accurately reflects all work, treatment, procedures, and medical decision making performed by me.
--- NOTE | 2019-05-12 02:45 | History & Physical Report ---
Date of Service May 12, 2019 Assessment & Plan (1) Radiculitis of leg: Obs GMF Pain control MRI LS spine in the am PT/OT Case management evaluation for rehab Continue home medications DVT prophylaxis = Lovenox. (2) Left leg pain: See above. History of Present Illness 84 y/o female presented to the ED with a 5 hour duration of severe 7/10 left leg pain that begins on the lateral hip and radiates down the left leg. The pain was severe to the point that she is not able to ambulate. No recent fall or trauma. No swelling or skin changes in the left leg. No rash or blisters to the left leg. The patient lives independently and is not able to care for herself in this amount of pain. She declines chest pain, SOB, cough, F/C, N/V/D. Primary Care Provider: Jeanmarie Elizalde MD Allergies Allergy/AdvReac Type Severity Reaction Status Date / Time No Known Allergies Allergy Unverified 09/09/18 13:04 Home Medications Home Medications Medication Instructions Recorded Confirmed Type atenolol 25 mg PO DAILY 09/09/18 05/11/19 History multivitamin 1 tab PO DAILY 09/09/18 05/11/19 History simvastatin 40 mg PO QPM 09/09/18 05/11/19 History aspirin 81 mg tablet 81 mg PO DAILY tab 03/22/19 05/11/19 History calcium carbonate 600 mg (1,500 1 tab PO BID tab 03/22/19 05/11/19 History mg)-vitamin D3 200 unit tablet Past Med/Surg History Medical History Altered mental status Borderline hypertension (Chronic) Fall (Acute) Stroke Subdural hematoma (Acute) TIA (transient ischemic attack) Surgical History No pertinent past surgical history Family History Other No significant past surgical history Social History Preferred Language: Latvian Communication Ability: Effective 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 Head- atraumatic Eyes- PERRL, EOMI, anicteric ENT- oropharynx clear Neck- supple, no JVD, no adenopathy, no thyromegaly. Lungs- clear to auscultation and percussion Heart- regular rhythm; no murmur, no gallop, no rub appreciated Abdomen- normal bowel sounds, soft, nontender. Extremities- no pretibial edema, no calf tenderness; + left straight leg raising. Mild tenderness over the greater trochanteric bursa, but does not reproduce the severe pain, No sign of shingles. Neuro- alert, oriented x 3; PERRL, EOMI; wage conciliator II-XII grossly intact, non-focal. Skin- warm & dry Results & Data Vital Signs (Past 12 Hours) Vital Signs Temp Pulse Pulse Resp BP BP Pulse Ox 05/12/19 01:26 36.4 C L 65 18 154/74 H 97 05/12/19 00:51 63 18 141/54 H 97 05/11/19 23:02 59 L 18 137/69 97 05/11/19 21:46 36.5 C 58 L 18 148/62 H 97 Laboratory Results Laboratory Results WBC 8.65 K/uL (4.8-10.8) 05/11/19 22:25 RBC 3.59 M/uL (4.2-5.4) L 05/11/19 22:25 Hgb 11.5 g/dL (12.0-16.0) L 05/11/19 22:25 Hct 35.5 % (37-47) L 05/11/19 22:25 MCV 98.9 fL (80-100) 05/11/19 22:25 MCH 32.0 pg (25-34) 05/11/19 22:25 MCHC 32.4 g/dL (32-36) 05/11/19 22:25 RDW Std Deviation 45.5 fL (36.4-46.3) 05/11/19 22:25 RDW Coeff of Harmony 12.6 % (11.5-14.5) 05/11/19 22:25 Plt Count 242 K/uL (130-400) 05/11/19 22:25 MPV 9.8 fL (7.4-10.4) 05/11/19 22:25 Immature Gran % (Auto) 0.1 % 05/11/19 22:25 Neut % (Auto) 73.4 % 05/11/19 22:25 Lymph % (Auto) 18.2 % 05/11/19 22:25 [place] % (Auto) 7.6 % 05/11/19 22:25 Eos % (Auto) 0.5 % 05/11/19 22:25 Baso % (Auto) 0.2 % 05/11/19: Immature Gran # (Auto) 0.01 K/uL (0.00-0.02) 05/11/19: Neut # (Auto) 6.35 K/uL (1.4-6.5) 05/11/19: Lymph # (Auto) 1.57 K/uL (1.2-3.4) 05/11/19 22:25 [place] # (Auto) 0.66 K/uL (0.11-0.59) H 05/11/19 22:25 Eos # (Auto) 0.04 K/uL (0-0.5) 05/11/19:25 Baso # (Auto) 0.02 K/uL (0-0.2) 05/11/19 22:25 Sodium 141 mmol/L (136-145) 05/11/19 22:25 Potassium 3.8 mmol/L (3.5-5.1) 05/11/19 22:25 Chloride 109 mmol/L (98-107) H 05/11/19 22:25 Carbon Dioxide 25 mmol/L (21-32) 05/11/19 22:25 Anion Gap 7.0 (3-11) 05/11/19 22:25 BUN 24 mg/dl (7-18) H 05/11/19 22:25 Creatinine 0.83 mg/dl (0.6-1.2) 05/11/19 22:25 Est Cr Clr Drug Dosing 52.7 ml/min 05/11/19 22:25 Est GFR ( Amer) 76.1 05/11/19 22:25 Est GFR (Non-Af Amer) 65.7 05/11/19 22:25 BUN/Creatinine Ratio 28.3 (10-20) H 05/11/19 22:25 Glucose 110 mg/dl (70-99) H 05/11/19 22:25 Calcium 9.2 mg/dl (8.5-10.1) 05/11/19 22:25 Total Bilirubin 0.6 mg/dl (0.2-1) 05/11/19 22:25 AST 15 U/L (15-37) 05/11/19 22:25 ALT 19 U/L (12-78) 05/11/19 22:25 Alkaline Phosphatase 29 U/L (45-117) L 05/11/19 22:25 Total Protein 7.0 gm/dl (6.4-8.2) 05/11/19 22:25 Albumin 3.4 gm/dl (3.4-5.0) 05/11/19 22:25 Globulin 3.6 gm/dl (2.5-4.0) 05/11/19 22:25 Albumin/Globulin Ratio 0.9 (0.9-2) 05/11/19 22:25 Code Status & VTE Plan VTE Prophylaxis Plan VTE Prophylaxis will be ordered: Yes PG Care Time/CCT Total # of Minutes Spent Total Time Spent: 50 Total Time Spent with Patient: Total time spent is greater than 50% in co ordination of care (as documented) at patient's floor/unit and/or counseling patient:
--- NOTE | 2019-05-12 06:03 | XRay Report ---
XR lumbar spine 2-3V CLINICAL HISTORY: leg pain eval disc dz pain COMPARISON STUDY: No previous studies for comparison. FINDINGS: Generalized degenerative disc changes throughout. Grade 1 anterolisthesis of L4 on L5. Vacu um disc is present at L4-L5. No evidence for compression deformity. IMPRESSION: Significant degenerative change. No acute process. The above report was generated using voice recognition software. It may contain grammatical, syntax or spelling errors. Electronically signed by: Titus Judge M.D. 05/12/2019 6:01 AM
--- NOTE | 2019-05-12 06:04 | XRay Report ---
XR hip LT 2V w pelvis CLINICAL HISTORY: pain eval for fx pain COMPARISON: None. DISCUSSION: Moderate degenerative change of the hips bilaterally. Mild degenerative changes sacroilia c joints. No evidence for acute bony pathology. There is no evidence for soft tissue swelling. IMPRESSION: Moderate generalized degenerative change. No acute process. The above report was generated using voice recognition software. It may contain grammatical, syntax or spelling errors. Electronically signed by: Titus Judge M.D. 05/12/2019 6:03 AM
--- NOTE | 2019-05-12 06:42 | Magnetic Resonance Report ---
MR lumbar spine wo con HISTORY: Pain. Radiculopathy. Left leg radiculitis TECHNIQUE: Multiplanar multisequence MRI of the lumbar spine was performed without the use of contras t. COMPARISON: None. FINDINGS: For the purpose of the report the L5-S1 disc space will be located on axial image 2428. Considerable degenerative disc change throughout the entire lumbar region. This is most prominent fro m L3 through S1. Grade 1 anterolisthesis of L4 on L5 with a maximum anterior translation of L4 and L5 of 3 mm. L1-L2: Minimal left posterior disc bulge. Partial effacement the anterior subarachnoid space. No sign ificant compromise of the neural foramina. L2-L3: Mild broad-based disc herniation. Mild hypertrophic change posterior elements. Mild to moderat e narrowing of the neural foramina bilaterally. L3-L4: Mild broad-based disc herniation. Mild impact upon the anterior thecal sac. L4-L5: Moderate to significant multifactorial spinal stenosis. Hypertrophic changes of the posterior elements and ligamentum flavum. Broad-based disc herniation. Significant narrowing of the right and t o a lesser extent left neural foramina. L5-S1: Mild left central bulging disc. Minimal narrowing left neural foramina. Minimal impact upon th e anterior thecal sac. Degenerative changes posterior elements. IMPRESSION: 1. Significant degenerative changes throughout the entire lumbar region. 2. Grade 1 anterolisthesis of L4 on L5 secondary to degenerative changes of posterior elements. 3. Significant multifactorial spinal stenosis L4-L5. This is a combination of broad-based disc hernia tion, grade 1 anterolisthesis of L4 and L5, and hypertrophic changes of posterior elements. 4. There is significant narrowing of the neural foramina bilaterally at L4-L5. 5. Moderate to rather significant degenerative change of all remaining lumbar levels with evidence fo r bulging disc components throughout. The above report was generated using voice recognition software. It may contain grammatical, syntax or spelling errors. Electronically signed by: Titus Judge M.D. 05/12/2019 6:41 AM
[2019-05-12 06:59] LABS: Hematocrit (blood only) 35.2 % (37-47); Hemoglobin 11.6 g/dL (12.0-16.0); Mean Corpuscular Volume 97.2 fL (80-100); Mean Platelet Volume 9.4 fL (7.4-10.4); Platelet Count 212 K/uL (130-400); RDW Coefficient of Variation 12.8 % (11.5-14.5); RDW Standard Deviation 45.1 fL (36.4-46.3); Red Blood Count 3.62 M/uL (4.2-5.4); White Blood Count 5.91 K/uL (4.8-10.8)
[2019-05-12 07:37] LABS: Calcium 9.3 mg/dl (8.5-10.1); Creatinine Clr Calc Pharmacy 60.8 ml/min; Est GFR (African American) 90.4; Potassium 3.8 mmol/L (3.5-5.1)
[2019-05-12] MEDS: ATENOLOL 25 MG TABLET PO SCH (08:56)
[2019-05-12] MEDS: ENOXAPARIN INJ 40 MG/0.4 ML SYR SQ SCH (08:56)
[2019-05-12] MEDS: ASPIRIN 81 MG CHEW PO SCH (08:56)
[2019-05-12] MEDS: MULTIVITAMIN TAB PO SCH (08:56)
[2019-05-12] MEDS: PANTOprazole 40 MG TAB PO SCH (08:56)
[2019-05-12] MEDS: CALCIUM 600MG + VIT D 400 IU TAB PO SCH ×2 (08:56→20:15)
--- NOTE | 2019-05-12 16:02 | Orthopedic Consultation ---
Date of Consultation Chief complaint of low back pain: Patient delightful 84-year-old female 40-hour duration of lower extremity difficulty paresthesias. Most like her legs were weak on her and had difficulty with ambulation is combination of weakness and pain to the extremities May 12, 2019 History of Present Illness Attending Physician: Dioni Kim Allergies Allergy/AdvReac Type Severity Reaction Status Date / Time No Known Allergies Allergy Unverified 09/09/18 13:04 Home Medications Home Medications Medication Instructions Recorded Confirmed Type atenolol 25 mg PO DAILY 09/09/18 05/11/19 History multivitamin 1 tab PO DAILY 09/09/18 05/11/19 History simvastatin 40 mg PO QPM 09/09/18 05/11/19 History aspirin 81 mg tablet 81 mg PO DAILY tab 03/22/19 05/11/19 History calcium carbonate 600 mg (1,500 1 tab PO BID tab 03/22/19 05/11/19 History mg)-vitamin D3 200 unit tablet Patient History Medical History Altered mental status Borderline hypertension (Chronic) Fall (Acute) Stroke Subdural hematoma (Acute) TIA (transient ischemic attack) Surgical History No pertinent past surgical history Family History Other No significant past surgical history Social History Preferred Language: Scottish Communication Ability: Effective 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
--- NOTE | 2019-05-12 16:12 | Orthopedic Consultation ---
Date of Consultation Chief complaint: Back and lower extremity difficulty paresthesias heaviness to her legs and difficulty with ambulation 3: Irene is delightful she is 84 she is admitted because of back and lower extremity difficulty and gait alteration and inability to stand and walk. He is better today thanks to her medical care. He felt an extreme heaviness and wea kness to her lower extremities dating up to her admission. In addition to the heaviness she felt significant pain particularly in the V nerve root distribution on the left-hand side May 12, 2019 Assessment & Plan (1) Radiculitis of leg: Images: X-rays reviewed in detail demonstrating significant degenerative scoliosis of the spine. MRI scan reviewed in detail along with the radiologist interpretation. She has a significant degenerative scoliosis spine nerve root irritation stenosis of spondylolisthesis Present on Admission?: Yes (2) Left leg pain: Plan: I recommend conservative care. She is or not truly a surgical ca ndidate. Anti-inflammatories are appropriate a short bolus of steroids also appropriate. Gabapentin can be helpful but be careful with gabapentin as there are some side effects in the elderly. Physical therapy is also an appropriate pathway for here. Epidural steroid injections could be helpful as an outpatient Present on Admission?: Yes (3) Ambulatory dysfunction: (4) Anemia: (5) Degenerative disc disease: History of Present Illness Attending Physician: Dioni Kim Allergies Allergy/AdvReac Type Severity Reaction Status Date / Time No Known Allergies Allergy Unverified 09/09/18 13:04 Home Medications Home Medications Medication Instructions Recorded Confirmed Type atenolol 25 mg PO DAILY 09/09/18 05/11/19 History multivitamin 1 tab PO DAILY 09/09/18 05/11/19 History simvastatin 40 mg PO QPM 09/09/18 05/11/19 History aspirin 81 mg tablet 81 mg PO DAILY tab 03/22/19 05/11/19 History calcium carbonate 600 mg (1,500 1 tab PO BID tab 03/22/19 05/11/19 History mg)-vitamin D3 200 unit tablet Patient History Medical History Altered mental status Borderline hypertension (Chronic) Fall (Acute) Stroke Subdural hematoma (Acute) TIA (transient ischemic attack) Surgical History No pertinent past surgical history Family History Other No significant past surgical history Social History Preferred Language: Jamaican Communication Ability: Effective Advice Nurse Required: No Beliefs That Will Affect Care: None marital status: / Current Living Situation: Alone Feels Safe at Home: Yes Smoking Status: Never smoker Hx Alcohol Use: No Hx Substance Use: No Review of Systems Review of Systems: Constitutional: Denies any fever sweats chills unexplained weight loss or cancer history GI genitourinary: Denies any urinary or bowel incontinence Denies any skin issues or adenopathy. She has mostly lower extremity difficulty paresthesias numbness and tingling heaviness Physical Exam Physical Exam: Examination she is alert oriented no signs of depression or confusion. HEENT examination essentially normal Skin integumentary to lower extremities intact with no signs of edema to the extremities. She has adequate motor strength and sensation in the supine position with no signs of weakness. She had no upper motor neuron issues reflexes appropriate appropriately diminished. Results & Data Vital Signs (Past 12 Hours) Vital Signs Temp Pulse Resp BP Pulse Ox 05/12/19 15:20 36.4 C L 58 L 16 162/63 H 98 05/12/19 07:25 36.6 C 58 L 18 148/73 H 97 PG Care Time/CCT Total # of Minutes Spent Total Time Spent with Patient: Total time spent is greater than 50% in coordination of care (as documented) at patient's floor/unit and/or counseling patient: (1) Anemia Anemia type: unspecified type Qualified Code(s): D64.9 - Anemia, unspecified (2) Degenerative disc disease Spinal region: lumbar Qualified Code(s): M51.36 - Other intervertebral disc degeneration, lumbar region
[2019-05-12] MEDS: SIMVASTATIN 40 MG TAB PO SCH (20:15)
[2019-05-13] MEDS: CALCIUM 600MG + VIT D 400 IU TAB PO SCH ×2 (09:31→20:25)
[2019-05-13] MEDS: MULTIVITAMIN TAB PO SCH (09:31)
[2019-05-13] MEDS: ASPIRIN 81 MG CHEW PO SCH (09:31)
[2019-05-13] MEDS: ATENOLOL 25 MG TABLET PO SCH (09:32)
[2019-05-13] MEDS: ENOXAPARIN INJ 40 MG/0.4 ML SYR SQ SCH (09:34)
[2019-05-13] MEDS: PANTOprazole 40 MG TAB PO SCH (10:28)
--- NOTE | 2019-05-13 10:51 | Neurology Consultation ---
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 She has a shuffling type gait, mild bradykinesia, and subtle rigidity of both upper limbs. She does not have a resting tremor. She probably does not have idiopathic Parkinson's disease. There is no evidence of normal pressure hydrocephalus on her CT of the head completed this past spring although she does have moderately extensive chronic periventricular white matter ischemic disease. At this point, I would not recommend treatment with Sinemet. The patient does seem a bit reluctant to accept the possibility of parkinsonism and Sinemet is usually not very helpful to address subcortical gait dysfunction of the type seen in vascular parkinsonism. Nonetheless, I may consider a trial of low-dose Sinemet in the outpatient setting, depending on this patient's status going forward. She may follow-up with me in clinic in 3 to 4 weeks to reassess her status. (2) Radiculitis of leg: Lumbar radiculopathy due to degenerative spondylolisthesis. Symptoms largely resolved. Patient has already been seen by orthopedics. I agree with conservative management. History of Present Illness Reason for Consultation: Parkinson's disease? Requesting Physician: Dioni Kim MD Attending Physician: Dioni Kim History of Present Illness The patient is an 84-year-old female who presented with a chief complaint of severe left leg pain that is been a chronic issue but have gotten significantly worse the day of presentation. She had a lumbar spine MRI completed which revealed degenerative spondylolisthesis. She was evaluated by orthopedics. She is symptomatically improved. Conservative management has been recommended. Neurology was consulted for further assessment of slow shuffling type gait and rigidity with concern for possible Parkinson's disease. The patient is a bit guarded regarding this aspect of her history. She reports that her daughter has been noticing that she tends to shuffle a bit more. She does not have a resting tremor. She does admit to perhaps mild orthostatic dizziness, nothing significant or consistent, however. She denies experiencing any symptoms suggestive of restless leg syndrome. I have actually evaluated this patient during an admission to [facility] in March 2017 after a fall complicated by a left orbital fracture. She had been having some confusion and balance difficulty at that time that were attributable to cerebrovascular disease, a small ischemic left frontal infarct, and possibly minor TBI/concussion. This patient did have a CT of the head completed in the emergency department this past September for further assessment of weakness and a fall at that time. This study revealed chronic small vessel ischemic, especially in a periventricular distribution, no hydrocephalus or hemorrhage. I reviewed the images as well as the radiologist's interpretation of this test. Additional details as below. Family history noncontributory Allergies Allergy/AdvReac Type Severity Reaction Status Date / Time No Known Allergies Allergy Unverified 09/09/18 13:04 Home Medications Home Medications Medication Instructions Recorded Confirmed Type atenolol 25 mg PO DAILY 09/09/18 05/11/19 History multivitamin 1 tab PO DAILY 09/09/18 05/11/19 History simvastatin 40 mg PO QPM 09/09/18 05/11/19 History aspirin 81 mg tablet 81 mg PO DAILY tab 03/22/19 05/11/19 History calcium carbonate 600 mg (1,500 1 tab PO BID tab 03/22/19 05/11/19 History mg)-vitamin D3 200 unit tablet Patient History Medical History Altered mental status Borderline hypertension (Chronic) Fall (Acute) Stroke Subdural hematoma (Acute) TIA (transient ischemic attack) Surgical History No pertinent past surgical history Family History Other No significant past surgical history Social History Preferred Language: Sammarinese Communication Ability: Effective Relationship Specialist Required: No Beliefs That Will Affect Care: None marital status: / Current Living Situation: Alone Feels Safe at Home: Yes Smoking Status: Never smoker Hx Alcohol Use: No Hx Substance Use: No Review of Systems Constitutional: no fever and no chills Eyes: no blind spots and no diplopia Ear, Nose, Mouth, Throat: no tinnitus Respiratory: no cough and no dyspnea Cardiovascular: no chest pain and no palpitations Gastrointestinal: no nausea and no vomiting Genitourinary: no urinary incontinence Musculoskeletal: no myalgia Integumentary: no rash and no lesions Neurologic: as per Subjective / HPI; no tremor(s), no confusion and no memory loss Psychiatric: no depression, no anxiety and no hallucinations Hematologic / Lymphatic: no easy bleeding and no easy bruising Physical Exam Physical Exam: The patient is a well-developed, well-nourished elderly female. She is alert and fully oriented. Recent and remote memory intact. Attention and concentration normal. Patient exhibits a normal spontaneous speech pattern as well as an age-appropriate fund of knowledge and normal comprehension of vocabulary. Visual taylor full to confrontation. Visual acuity normal. Pupils equal round reactive to light and accommodation. Eye movements normal. There is no ptosis, nystagmus, or ophthalmoplegia. Facial sensation intact. There is no facial droop or weakness. Hearing intact. Palate elevates to midline. Shoulder shrug intact. Tongue protrudes to midline. Sensation intact to all modalities in all 4 limbs. Deep tendon reflexes intact and symmetrical for the arms and legs. Plantar responses downgoing bilaterally. There is no dysdiadochokinesia or dysmetria [id number] or [id number] bilaterally. Ophthalmoscopic examination reveals normal-appearing optic disks and posterior segments. No papilledema or hemorrhages. Carotid pulses normal bilaterally, no bruits to auscultation. Patient does have modest difficulty arising from a chair and requires assistance. She does take short shuffling steps. Patient exhibits normal muscle strength for all 4 limbs. She does have a hint of bilateral upper extremity rigidity. No cogwheeling. No atrophy. No resting tremor or other abnormal movements observed. She does have a slightly masked facies. Results & Data Vital Signs (Past 12 Hours) Vital Signs Temp Pulse Resp BP Pulse Ox 05/13/19 07:26 36.6 C 57 L 16 143/54 H 97 05/12/19 23:43 36.4 C L 62 18 156/70 H 96 Laboratory Results WBC 5.91, hemoglobin 11.6, hematocrit 35.2, platelet count 212, sodium 140, potassium 3.8, BUN 22, creatinine 0.72, glucose 97, calcium 9.3, AST 15, ALT 19 Diagnostic Findings Lumbar spine MRI completed yesterday reveals grade 1 anterolisthesis of L4 on 5 secondary to degenerative change. There is significant multifactorial spinal stenosis at that level as well as bilateral neural for mental narrowing. There is multilevel degenerative change. I reviewed the images as well as the radiologist's interpretation of this test. CT of the head completed this past September was reviewed and is as described in the history of present illness. An electrocardiogram reveals a normal sinus rhythm, 66 bpm.
[2019-05-13] MEDS: SIMVASTATIN 40 MG TAB PO SCH (20:25)
--- NOTE | 2019-05-13 22:42 | Hospitalist Progress Note ---
Date of Service May 13, 2019 Assessment & Plan (1) Radiculitis of leg: Admitted [facility] Needs rehab Pain control MRI LS spine in the am PT/OT Pain has improved. Case management evaluation for rehab Continue home medications DVT prophylaxis = Lovenox. (2) Left leg pain: See above. (3) Parkinsonism: Patient has vascular parkinsonism. Appears it is mild, patient may benefit from sinemet, but ( as noted by neurology) the patient does seem a bit reluctant to accept the possibility of parkinsonism and Sinemet is usually not very helpful to address subcortical gait dysfunction of the type seen in vascular parkinsonism. Nonetheless, I may consider a trial of low-dose Sinemet in the outpatient setting, depending on this patient's status going forward. She may follow-up with Neurology in 3 to 4 weeks to reassess her status. Subjective Patient reports no new symptoms. She feels better. Review of Systems Review of Systems: All systems reviewed & are unremarkable except as noted in HPI & below Physical Exam Physical Exam: General- adult female in no distress Head- atraumatic Eyes- PERRL, EOMI, anicteric ENT- oropharynx clear Neck- supple, no JVD, no adenopathy, no thyromegaly. Lungs- clear to auscultation and percussion Heart- regular rhythm; no murmur, no gallop, no rub appreciated Abdomen- normal bowel sounds, soft, nontender. Extremities- no pretibial edema, no calf tenderness; + left straight leg raising. Mild tenderness over the greater trochanteric bursa, but does not reproduce the severe pain, No sign of shingles. Neuro- alert, oriented x 3; PERRL, EOMI; business operations director II-XII grossly intact, non-focal. Skin- warm & dry Results & Data Vital Signs (Past 12 Hours) Vital Signs Temp Pulse Resp BP Pulse Ox 05/13/19 15:46 36.4 C L 56 L 17 131/65 98 PG Care Time/CCT Total # of Minutes Spent Total Time Spent with Patient: Total time spent is greater than 50% in coordination of care (as documented) at patient's floor/unit and/or counseling patient:
[2019-05-14] MEDS: ASPIRIN 81 MG CHEW PO SCH (08:50)
[2019-05-14] MEDS: MULTIVITAMIN TAB PO SCH (08:52)
[2019-05-14] MEDS: CALCIUM 600MG + VIT D 400 IU TAB PO SCH ×2 (08:52→20:18)
[2019-05-14] MEDS: ENOXAPARIN INJ 40 MG/0.4 ML SYR SQ SCH (08:52)
[2019-05-14] MEDS: ATENOLOL 25 MG TABLET PO SCH (08:52)
[2019-05-14] MEDS: PANTOprazole 40 MG TAB PO SCH (08:52)
--- NOTE | 2019-05-14 09:11 | Orthopedic Progress Note ---
Date of Service May 14, 2019 Assessment & Plan (1) Radiculitis of leg: Patient will be discharged to a nursing type facility in subacute rehab. Feel she will do quite well. Surgery not indicated. She truly does not need a follow-up appointment but if she has return of her symptoms I be glad to see her back in the office. Present on Admission?: Yes (2) Left leg pain: Subjective Pain well controlled ambulatory. She is made a significant improvement from her admission status Review of Systems Review of Systems: No fever sweats chills proven her gait and improvement of her pain Physical Exam Physical Exam: Fiber 5 strength good sensation motor ability reflex ability no deficits Results & Data Vital Signs (Past 12 Hours) Vital Signs Temp Pulse Resp BP Pulse Ox 05/14/19 07:26 36.9 C 59 L 16 146/67 H 97 05/13/19 22:55 36.3 C L 59 L 16 126/65 97 PG Care Time/CCT Total # of Minutes Spent Total Time Spent with Patient: Total time spent is greater than 50% in coordination of care (as documented) at patient's floor/unit and/or counseling patient:
[2019-05-14] MEDS: SIMVASTATIN 40 MG TAB PO SCH (20:19)
--- NOTE | 2019-05-14 21:20 | Hospitalist Progress Note ---
Date of Service May 14, 2019 Assessment & Plan (1) Radiculitis of leg: Admitted [facility] Needs rehab/ awaiting placement. Pain control MRI LS spine in the am PT/OT Pain has improved. Case management evaluation for rehab Continue home medications DVT prophylaxis = Lovenox. (2) Left leg pain: See above. (3) Parkinsonism: Patient has vascular parkinsonism. Appears it is mild, patient may benefit from sinemet, but ( as noted by neurology) the patient does seem a bit reluctant to accept the possibility of parkinsonism and Sinemet is usually not very helpful to address subcortical gait dysfunction of the type seen in vascular parkinsonism. Nonetheless, I may consider a trial of low-dose Sinemet in the outpatient setting, depending on this patient's status going forward. She may follow-up with Neurology in 3 to 4 weeks to reassess her status. Subjective Patient reports no new symptoms. Review of Systems Review of Systems: All systems reviewed & are unremarkable except as noted in HPI & below Physical Exam Physical Exam: General- adult female in no distress Head- atraumatic Eyes- PERRL, EOMI, anicteric ENT- oropharynx clear Neck- supple, no JVD, no adenopathy, no thyromegaly. Lungs- clear to auscultation and percussion Heart- regular rhythm; no murmur, no gallop, no rub appreciated Abdomen- normal bowel sounds, soft, nontender. Extremities- no pretibial edema, no calf tenderness; + left straight leg raising. Mild tenderness over the greater trochanteric bursa, but does not reproduce the severe pain, No sign of shingles. Neuro- alert, oriented x 3; PERRL, EOMI; glue reel operator II-XII grossly intact, non-focal. Skin- warm & dry Results & Data Vital Signs (Past 12 Hours) Vital Signs Temp Pulse Resp BP Pulse Ox 05/14/19 14:58 36.3 C L 57 L 17 132/71 99 PG Care Time/CCT Total # of Minutes Spent Total Time Spent with Patient: Total time spent is greater than 50% in coordination of care (as documented) at patient's floor/unit and/or counseling patient:
[2019-05-15] MEDS: ASPIRIN 81 MG CHEW PO SCH (09:05)
[2019-05-15] MEDS: CALCIUM 600MG + VIT D 400 IU TAB PO SCH ×2 (09:06→20:07)
[2019-05-15] MEDS: ENOXAPARIN INJ 40 MG/0.4 ML SYR SQ SCH (09:06)
[2019-05-15] MEDS: ATENOLOL 25 MG TABLET PO SCH (09:06)
[2019-05-15] MEDS: PANTOprazole 40 MG TAB PO SCH (09:06)
[2019-05-15] MEDS: MULTIVITAMIN TAB PO SCH (09:06)
[2019-05-15] MEDS: SIMVASTATIN 40 MG TAB PO SCH (20:07)
--- NOTE | 2019-05-15 21:52 | Hospitalist Progress Note ---
Date of Service May 15, 2019 Assessment & Plan (1) Radiculitis of leg: Admitted [facility] Needs rehab/ awaiting placement. Pain control MRI LS spine comleted. PT/OT Pain has improved. Case management ev: pending placementaluation for rehab Continue home medications DVT prophylaxis = Lovenox. (2) Left leg pain: See above. (3) Parkinsonism: Patient has vascular parkinsonism. Appears it is mild, patient may benefit from sinemet, but ( as noted by neurology) the patient does seem a bit reluctant to accept the possibility of parkinsonism and Sinemet is usually not very helpful to address subcortical gait dysfunction of the type seen in vascular parkinsonism. Nonetheless, I may consider a trial of low-dose Sinemet in the outpatient setting, depending on this patient's status going forward. She may follow-up with Neurology in 3 to 4 weeks to reassess her status. (4) Stroke: h/o stroke. on beta jose and aspirin. dispo: awaiting placement for SNF. hopefully Thursday Subjective Patient reports no new symptoms. She feels well. She in interested in going to [facility] but would also accept [facility]. Review of Systems Review of Systems: All systems reviewed & are unremarkable except as noted in HPI & below Physical Exam Physical Exam: General- adult female in no distress Head- atraumatic Eyes- PERRL, EOMI, anicteric ENT- oropharynx clear Neck- supple, no JVD, no adenopathy, no thyromegaly. Lungs- clear to auscultation and percussion Heart- regular rhythm; no murmur, no gallop, no rub appreciated Abdomen- normal bowel sounds, soft, nontender. Extremities- no pretibial edema, no calf tenderness; Mild tenderness over the greater trochanteric bursa, but does not reproduce the severe pain, No sign of shingles. Neuro- alert, oriented x 3; PERRL, EOMI; production operations engineer II-XII grossly intact, non-focal. Skin- warm & dry Results & Data Vital Signs (Past 12 Hours) Vital Signs Temp Pulse Resp BP Pulse Ox 05/15/19 15:07 36.6 C 61 17 127/65 99 PG Care Time/CCT Total # of Minutes Spent Total Time Spent with Patient: Total time spent is greater than 50% in coordination of care (as documented) at patient's floor/unit and/or counseling patient:
[2019-05-16] MEDS: ASPIRIN 81 MG CHEW PO SCH (10:35)
[2019-05-16] MEDS: CALCIUM 600MG + VIT D 400 IU TAB PO SCH (10:35)
[2019-05-16] MEDS: MULTIVITAMIN TAB PO SCH (10:35)
[2019-05-16] MEDS: ATENOLOL 25 MG TABLET PO SCH (10:36)
[2019-05-16] MEDS: ENOXAPARIN INJ 40 MG/0.4 ML SYR SQ SCH (10:36)
--- NOTE | 2019-05-16 15:41 | Discharge Summary ---
Date of Service May 16, 2019 Admission HPI Per Admitting Provider 84 y/o female presented to the ED with a 5 hour duration of severe 7/10 left leg pain that begins on the lateral hip and radiates down the left leg. The pain was severe to the point that she is not able to ambulate. No recent fall or trauma. No swelling or skin changes in the left leg. No rash or blisters to the left leg. The patient lives independently and is not able to care for herself in this amount of pain. She declines chest pain, SOB, cough, F/C, N/V/D. Admission Exam Per Admitting Provider General- adult female in mild distress from pain. Head- atraumatic Eyes- PERRL, EOMI, anicteric ENT- oropharynx clear Neck- supple, no JVD, no adenopathy, no thyromegaly. Lungs- clear to auscultation and percussion Heart- regular rhythm; no murmur, no gallop, no rub appreciated Abdomen- normal bowel sounds, soft, nontender. Extremities- no pretibial edema, no calf tenderness; + left straight leg raising. Mild tenderness over the greater trochanteric bursa, but does not reproduce the severe pain, No sign of shingles. 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 Skin- warm & dry Principal Diagnosis Left leg radiculopathy Mild vascular parkinson's Discharge Exam Constitutional well developed; + not well nourished and no acute distress Eyes + anicteric sclerae; normal pupil size Respiratory normal respiratory effort, lungs clear to auscultation Cardiovascular RRR, no murmur, no edema Skin no rashes, warm and dry Neurologic moves all extremities (left buttocks pain with movement) and awake Motor/Sensory: no tremor and no pronator drift Psychiatric A+Ox3, euthymic affect Discharge Data Allergies Allergy/AdvReac Type Severity Reaction Status Date / Time No Known Allergies Allergy Unverified 09/09/18 13:04 Consultations 05/11/19 23:24 ED Decision to Admit Stat 05/12/19 01:37 Consult Case Management - Discharge Planning Routine 05/12/19 15:39 Consult Orthopedic Surgery Routine 05/12/19 17:56 Consult Neurology Routine Ordered Studies 05/12/19 01:37 MR lumbar spine wo con Routine Hospital Course (1) Radiculitis of leg: Irene Snow is an 84 year old female admitted to [facility] from May 12 to 2018 due to acute onset left leg pain and weakness. She was diagnosed with left leg radiculitis and treated with pain medication and physical therapy. She was evaluated by physical and occupational therapy and further inpatient rehabilitation. In addition due to some mild bradykinesia (slow movements) and shuffling type gait she was reviewed by neurology and diagnosed with possible mild vascular type Parkinson's. No medications were started for this at this time. Referral placed for neurology appointment to follow up as a routine appointment. (2) Left leg pain: (3) Parkinsonism: (4) Stroke: Total Time Total Time Spent Total Time Spent (In Minutes): 40 Total Time Includes: Examination of the Patient, Discharge Planning and Medication Reconciliation Discharge Plan Discharge Items Patient Disposition: Transfer Inpatient Rehab Fac Reason For Visit: INTRACTABLE RADICULAR LEFT LEG PAIN Discharge Diagnosis: Left leg radiculopathy Mild vascular parkinson's Condition on Discharge: Fair Activity: Resume your previous activity Weightbearing: Full weightbearing Non-emergency contact: Primary Care Provider Call non-emergency contact if: your symptoms worsen and your temperature is a jace 101 Follow-up/Referrals: Norman Elizalde MD [Primary Care Provider] - Robb Dorsey MD [Physician] - (next available routine appointment) Diet: Regular Addtl Attending Provider Instructions: You were admitted to [facility] from May 12 to 2018 due to acute onset left leg pain and weakness. You were diagnosed with left leg radiculitis and treated with pain medication and physical therapy. You were evaluated by physical and occupational therapy and recommended going for further inpatient rehabilitation. In addition due to some mild bradykinesia (slow movements) and shuffling type gait you were reviewed by neurology and diagnosed with possible mild vascular type Parkinson's. No medications were started for this at this time. Referral placed for neurology appointment to follow up as a routine appointment (please call number above if you have not heard anything after 7 working days to arrange a routine appointment). Pending Studies at Discharge: No Stand-Alone Forms: My [facility] Skilled Items Patient informed of condition?: Yes DNR: No Discharge Level of Care: Acute rehab Communicable Disease: No Discharge Prognosis: Improving Lines: None Urinary Catheter: No Medications and DC Order Prescriptions: New acetaminophen [Mapap (acetaminophen)] 325 mg Tablet 650 mg PO Q4H PRN (Reason: pain) Qty: 30 RF: 0 Continued aspirin 81 mg tablet 81 mg PO DAILY RF: 0 calcium carbonate-vitamin D3 600 mg(1,500mg) -200 unit tablet 1 tab PO BID RF: 0 multivitamin Tablet 1 tab PO DAILY RF: 0 atenolol 25 mg tablet 25 mg PO DAILY RF: 0 simvastatin 40 mg tablet 40 mg PO QPM RF: 0 Discharge Orders: Discharge Order (Routine); Ordered 05/16/19 Ordered By: Fitz Phan Admission Data Admit Date/Time: 05/12/19 22:09 Attending Provider: Fitz Phan Admit Provider: Rasheed Wayne Primary Care Provider: Norman Elizalde Other Providers: Rasheed Wayne ; [facility] ; Amor Trujillo ; Robb Dorsey ; Lili Ruiz at [place] Other Interventions: Discharge Summary Assessment (RN) Last Done: 05/16/19 16:49 DC Date/Time DO NOT enter until pt leaves facility: 05/16/19 17:51
== END 2019-05-16 17:51 | DRG 74 ==
LOC: ED 21:29 → 3N 21:29 → SUATTDRO 05-12 00:39 → 3N 05-12 01:22 → SUATTDRO 05-12 22:09

== ENCOUNTER 2019-07-03 08:53 | Inpatient (IN) ==
[2019-07-03 09:43] LABS: Basophils # (auto) 0.02 K/uL (0-0.2); Basophils % (auto) 0.2 %; Eosinophils # (auto) 0.03 K/uL (0-0.5); Eosinophils % (auto) 0.4 %; Hematocrit (blood only) 36.7 % (37-47); Hemoglobin 12.1 g/dL (12.0-16.0); Immature Granulocytes # (auto) 0.01 K/uL (0.00-0.02); Immature Granulocytes % (auto) 0.1 %; Lymphocytes # (auto) 0.74 K/uL (1.2-3.4); Lymphocytes % (auto) 9.2 %; Mean Corpuscular Hemoglobin 32.2 pg (25-34); Mean Corpuscular Volume 97.6 fL (80-100); Mean Platelet Volume 9.7 fL (7.4-10.4); Monocytes # (auto) 1.49 K/uL (0.11-0.59); Monocytes % (auto) 18.5 %; Neutrophils # (auto) 5.77 K/uL (1.4-6.5); Neutrophils % (auto) 71.6 %; Platelet Count 250 K/uL (130-400); RDW Coefficient of Variation 13.4 % (11.5-14.5); RDW Standard Deviation 47.7 fL (36.4-46.3); Red Blood Count 3.76 M/uL (4.2-5.4); White Blood Count 8.06 K/uL (4.8-10.8)
[2019-07-03 09:59] LABS: Alanine Aminotransferase 20 U/L (12-78); Albumin Level 2.8 gm/dl (3.4-5.0); Aspartate Aminotransferase 18 U/L (15-37); BUN Creatinine Ratio 27.9 (10-20); Blood Urea Nitrogen 32 mg/dl (7-18); Calcium 9.3 mg/dl (8.5-10.1); Carbon Dioxide 28 mmol/L (21-32); Chloride 102 mmol/L (98-107); Creatinine Clr Calc Pharmacy 39.8 ml/min; Est GFR (African American) 51.9; Est GFR (Non-African American) 44.7; Glucose 137 mg/dl (70-99); Potassium 4.2 mmol/L (3.5-5.1); Sodium 137 mmol/L (136-145)
[2019-07-03 10:04] LABS: Albumin Globulin Ratio 0.6 (0.9-2); Alkaline Phosphatase 30 U/L (45-117); Bilirubin,Total 0.9 mg/dl (0.2-1); Creatine Kinase 85 U/L (26-192); Globulin 4.4 gm/dl (2.5-4.0); Total Protein 7.2 gm/dl (6.4-8.2); Troponin I < 0.015 ng/ml (0-0.045)
[2019-07-03 10:11] LABS: Appearance Urine Clear (Clear); Blood Urine Negative (Negative); Color Urine Dark Yellow; Epithelial Cell Urine Auto >30 /lpf (0-5); Glucose Urine UA Negative (Negative); Ketones Urine Trace (Negative); Leukocyte Esterase Urine Trace (Negative); Nitrite Urine Negative (Negative); Protein Urine Trace (Negative); RBC Urine Automated 0-4 /hpf (0-4); Specific Gravity Urine 1.025 (1.000-1.030); Urobilinogen Urine Negative (Negative)
--- NOTE | 2019-07-03 10:16 | XRay Report ---
XR chest 1V portable HISTORY: 84 years-old Female weakness acute weakness COMPARISON: Chest radiograph 09/09/2018 TECHNIQUE: Portable AP view of the chest FINDINGS: Cardiac silhouette is enlarged, unchanged. Calcified plaque of the thoracic aortic arch. Chronic inte rstitial coarsening. No pneumothorax or large pleural effusion. Minimal ill-defined airspace opacitie s of the right midlung appear new from comparison. Degenerative changes of the shoulders and spine. IMPRESSION: 1. Cardiomegaly without overt pulmonary edema. 2. Chronic interstitial coarsening with new ill-defined right midlung opacity suggestive of summation density versus focal pneumonitis. ACT 112: Negative or not required by law. The above report was generated using voice recognition software. It may contain grammatical, syntax o r spelling errors. Electronically signed by: Mode Correia M.D. 07/03/2019 10:15 AM
[2019-07-03 10:27] LABS: Bilirubin Urine Negative (Negative); Ictotest Urine Negative (Negative)
[2019-07-03] MEDS ORDERED: IOVERSOL 100ml IV PRN (10:31)
--- NOTE | 2019-07-03 10:37 | CT Scan Report ---
CT head/brain wo con CLINICAL HISTORY: 84 years-old Female with fall. Acute head injury status post fall TECHNIQUE: Multiple axial CT images of the head were obtained without contrast. A dose lowering tech nique was utilized adhering to the principles of ALARA. COMPARISON: Head CT 09/09/2018. FINDINGS: No acute intracranial hemorrhage, midline shift, intracranial mass, hydrocephalus, territorial ischem ia or abnormal extra-axial collection. Age-related involutional changes with ex vacuo ventriculomegal y. White matter hypodensities redemonstrated suggestive of chronic cardiovascular ischemic disease. The calvarium is intact. Prior bilateral lens replacement. The paranasal sinuses, mastoid air cells, and middle ear cavities are clear. IMPRESSION: No acute intracranial abnormality or calvarial fracture. ACT 112: Negative or not required by law. The above report was generated using voice recognition software. It may contain grammatical, syntax o r spelling errors. Electronically signed by: Mode Correia M.D. 07/03/2019 10:35 AM
--- NOTE | 2019-07-03 10:40 | CT Scan Report ---
CT cervical spine wo con CT DOSE: 1458.97 mGy.cm CLINICAL HISTORY: 84 years-old Female with fall. Acute head and neck injury status post fall COMPARISON: Head CT of same day, CT cervical spine 09/09/2018 TECHNIQUE: Multiple axial CT images of the cervical spine were obtained without contrast. A dose low ering technique was utilized adhering to the principles of ALARA. FINDINGS: Demineralized appearance the bones. Severe disc space narrowing at C4-C5, C5-C6 and C6-C7 with multil evel posterior disc osteophyte complex formations. Moderate multilevel facet arthrosis. Nuchal ligame nt calcifications. Calcifications of the ligamentum flavum. Severe degenerative changes at C1-C2. No acute cervical spine fracture or subluxation. Evaluation of the central canal and neuroforamina is be tter assessed by MRI. Multilevel foraminal narrowing is noted. Imaged ribs appear intact. Pleural-parenchymal scarring at the right lung apex. No pneumothorax. No prevertebral soft tissue swe lling. Calcifications of the bilateral carotid bulbs and internal carotid arteries. IMPRESSION: No acute cervical spine fracture or subluxation ACT 112: Negative or not required by law. The above report was generated using voice recognition software. It may contain grammatical, syntax o r spelling errors. Electronically signed by: Mode Correia M.D. 07/03/2019 10:39 AM
[2019-07-03 10:54] LABS: Bacteria Urine Automated 1+ (Negative); Mucus Urine Present (None Prsent)
--- NOTE | 2019-07-03 10:54 | CT Scan Report ---
ABDOMEN AND PELVIS CT WITH IV CONTRAST HISTORY: Acute lower abdominal pain. Acute fall diverticulitis TECHNIQUE: Multiaxial CT images of the abdomen and pelvis were performed following the IV administrat ion of 93 cc of Optiray 320, A dose lowering technique was utilized adhering to the principles of AL IMANI. COMPARISON STUDY: None. FINDINGS: Asymmetric groundglass opacities of the left lung base with mild subsegmental bibasilar atelectasis. No pneumatosis or pneumoperitoneum identified. The imaged inferior cardiac chambers are enlarged. Cor onary arterial calcifications are noted. The spleen, and right adrenal gland are unremarkable. Thicke ciaran of the left adrenal gland suggests hyperplasia. Ovoid cystic structure of the uncinate process p ancreas measures 1.1 x 0.6 cm on image 153 series 7 suggestive of a sidebranch IPMN versus mucinous c yst. Gallbladder distention with cholelithiasis. Mild intrahepatic and extrahepatic biliary ductal di lation, common bile duct measuring up to 10 mm. No obstructing lesion or calcification of the biliary tree identified. Liver is otherwise unremarkable. Probable cyst of the inferior right hepatic lobe, 4 mm. Patency of the hepatic and portal veins. External renal pelvis noted on the right. No renal or ureteral calculi. Decompressed urinary bladder. 9 mm indeterminate cystic focus of the left adnexum. Extensive calcified plaque of the abdominal aor ta without aneurysm. No adenopathy. There is no small bowel obstruction. Extensive fecal retention of the rectum with moderate to extensive formed stool throughout the remainder of the colon. Colonic di verticulosis. Wall thickening of the colon is noted extending from the distal transverse colon throug h the sigmoid segment with mild adjacent inflammatory stranding. Terminal ileum is noninflamed. Nancy l appendix. Soft tissues are unremarkable. No acute displaced rib fracture identified. Demineralized appearance of the bones. Lumbar levoscoliosis. Degenerative changes of the SI joints. IMPRESSION: 1. Mild wall thickening of the colon with mild associated inflammatory stranding extends from the mid transverse segment through the distal sigmoid suggestive of a nonspecific infectious or inflammatory colitis. 2. Colonic diverticulosis. 3. No pneumatosis or pneumoperitoneum. No drainable fluid collection 4. Normal appendix. 5. Moderate to extensive constipation. 6. Distended gallbladder with cholelithiasis. Additionally, there is mild intrahepatic and extrahepat ic biliary ductal dilation without obstructing calculus or lesion identified. Correlate with LFTs. 7. Additional findings as above. ACT 112: Negative or not required by law. The above report was generated using voice recognition software. It may contain grammatical, syntax o r spelling errors. Electronically signed by: Mode Correia M.D. 07/03/2019 10:53 AM
--- NOTE | 2019-07-03 13:54 | Emergency Department Note ---
Entered by Sera Andres acting as a scribe for History of Present Illness General Chief complaint: Fall Stated complaint: FALL, LEG WEAKNESS, R KNEE PAIN Source: patient Mode of arrival: EMS Limitations: no limitations History of Present Illness Onset (ago): hour(s) 1 Radiation: non-radiation Pain Consistency: + now resolved Maximum Pain Intensity: 5 Relieved By: + none Exacerbated By: + other (weakness) Associated symptoms: + other (-LOC, -neck pain, +hematochezia, ) Treatments prior to arrival: none The patient is an 84 year old female who presents to the ED with complaints of a fall that occurred earlier this morning. She states her legs felt weak and "fell out from under me" this morning. She notes her left knee was also painful before the fall, and rates her discomfort as a 5/10 in severity. She was able to press her medical alert button to call 911 after she fell. She did not lose consciousness during the episode and denies any neck pain. She admits to some recent abdominal pain but denies any hematochezia or history of diverticulitis. The patient denies any recent illnesses. She does live alone. Home Medications Home Medications Medication Instructions Recorded Confirmed Type atenolol 25 mg PO DAILY 09/09/18 07/03/19 History multivitamin 1 tab PO DAILY 09/09/18 07/03/19 History simvastatin 40 mg PO QPM 09/09/18 07/03/19 History aspirin 81 mg tablet 81 mg PO DAILY tab 03/22/19 07/03/19 History calcium carbonate 600 mg (1,500 1 tab PO BID tab 03/22/19 07/03/19 History mg)-vitamin D3 200 unit tablet acetaminophen [Mapap 650 mg PO Q4H PRN #30 tab 05/16/19 07/03/19 Rx (acetaminophen)] carbidopa 25 mg-levodopa 250 mg 0.5 tab PO TID tab 05/30/19 07/03/19 History tablet Allergies Allergy/AdvReac Type Severity Reaction Status Date / Time No Known Allergies Allergy Unverified 07/03/19 09:14 Past Med/Surg History Medical History Altered mental status Borderline hypertension (Chronic) Fall (Acute) Stroke Subdural hematoma (Acute) TIA (transient ischemic attack) Surgical History No pertinent past surgical history Family History Other No significant past surgical history Social History Preferred Language: [place]an Communication Ability: Effective 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 and A total of 10 systems reviewed and were otherwise negative Physical Exam Vital Signs Vital Signs - 24 hr 07/03/19 08:59 07/03/19 10:30 07/03/19 10:53 Temperature 36.7 C Temperature Source Oral Pulse Rate - Lying 72 Pulse Rate - Sitting 80 Pulse Rate - Standing 86 Pulse Rate 80 Pulse Rate [Apical] 72 Pulse Rhythm Regular Pulse Rhythm [Apical] Regular Respiratory Rate 17 17 17 Respiratory Effort / Characteristics Non-Labored Spontaneous Non-Labored Spontaneous Non-Labored Spontaneous Respiratory Depth Normal Normal Normal Respiratory Pattern Regular Regular Regular Blood Pressure - Lying 130/52 L Blood Pressure - Sitting 129/79 Blood Pressure- Standing 141/58 H Blood Pressure 116/60 Blood Pressure [Right Arm] 139/57 L Blood Pressure Mean 78 Blood Pressure Mean [Right Arm] 84 Pulse Oximetry 96 98 95 Oxygen Delivery Method Room Air Room Air Room Air Sepsis Recent Fever Within 48 Hours No Sepsis New/Unexplained Change in Mental Status No Sepsis Action Taken by Nursing No Action Required 07/03/19 12:00 07/03/19 13:30 Temperature Temperature Source Pulse Rate - Lying Pulse Rate - Sitting Pulse Rate - Standing Pulse Rate Pulse Rate [Apical] 78 72 Pulse Rhythm Pulse Rhythm [Apical] Regular Regular Respiratory Rate 16 16 Respiratory Effort / Characteristics Non-Labored Spontaneous Non-Labored Spontaneous Respiratory Depth Normal Normal Respiratory Pattern Regular Regular Blood Pressure - Lying Blood Pressure - Sitting Blood Pressure- Standing Blood Pressure Blood Pressure [Right Arm] 130/58 L 123/51 L Blood Pressure Mean Blood Pressure Mean [Right Arm] 82 75 Pulse Oximetry 95 95 Oxygen Delivery Method Room Air Room Air Sepsis Recent Fever Within 48 Hours Sepsis New/Unexplained Change in Mental Status Sepsis Action Taken by Nursing Vital signs reviewed. General: Well-appearing 84yo female, in no significant distress. HEENT: No scleral icterus, PERRLA, neck supple. Atraumatic. Cardiovascular: Regular rate and rhythm, no extra sounds. Pulmonary: Crackles at bilateral bases. Normal work of breathing. Abdomen: Soft, tenderness to palpation in LLQ, nondistended, positive bowel sounds. Musculoskeletal: Atraumatic, no peripheral edema. Neurologic: Patient awake alert and oriented x 3, equal strength in all 4 extremities. Cranial nerves 2 through 12 grossly intact. Skin: Warm, dry, no rash Course Course 22: The patient was evaluated in room B9 and a complete history and physical were performed. 1310: I reevaluated the patient. I discussed her results and my recommendation she remain in the hospital for further evaluation and management and she is agreeable with the plan. 1315: [facility] The patient will be further evaluated. Consultations Consultation #1: I [facility] the [facility] The patient will be further evaluated. Time: 13:15 Administered Medications Aspirin (Ecotrin Ectab) 81 mg PO DAILY [facility] Stop: 08/03/19 08:59 Last Admin: 07/06/19 08:11 Dose: 81 mg Documented by: [id number] Admin: 07/05/19 08:12 Dose: 81 mg Documented by: [id number] Admin: 07/04/19 08:38 Dose: 81 mg Documented by: [id number] Atenolol (Tenormin) 25 mg PO DAILY [facility] Stop: 08/03/19 08:59 Last Admin: 07/06/19 08:10 Dose: 25 mg Documented by: [id number] Admin: 07/05/19 08:11 Dose: 25 mg Documented by: [id number] Admin: 07/04/19 08:37 Dose: 25 mg Documented by: [id number] Carbidopa/Levodopa (Sinemet 25/250mg) 0.5 tab PO TID [facility] Stop: 08/02/19 20:59 Last Admin: 07/06/19 08:11 Dose: 0.5 tab Documented by: [id number] Admin: 07/05/19 20:01 Dose: 0.5 tab Documented by: [id number] Admin: 07/05/19 14:17 Dose: 0.5 tab Documented by: [id number] Admin: 07/05/19 08:11 Dose: 0.5 tab Documented by: [id number] Admin: 07/04/19 20:28 Dose: 0.5 tab Documented by: [id number] Admin: 07/04/19 13:37 Dose: 0.5 tab Documented by: [id number] Admin: 07/04/19 08:38 Dose: 0.5 tab Documented by: [id number] Admin: 07/03/19 20:38 Dose: 0.5 tab Documented by: [id number] Enoxaparin Sodium (Lovenox) 40 mg SQ Q24H [facility] Stop: 08/02/19 17:59 Last Admin: 07/05/19 20:00 Dose: 40 mg Documented by: [id number] Admin: 07/04/19 18:08 Dose: 40 mg Documented by: [id number] Admin: 07/03/19 19:09 Dose: 40 mg Documented by: [id number] Ciprofloxacin (Cipro) 400 mg in 200 mls @ 100 mls/hr IV Q12H [facility] Stop: 07/14/19 00:00 Last Infusion: 07/06/19 01:46 Dose: 0 mls/hr Documented by: [id number] Admin: 07/05/19 23:46 Dose: 100 mls/hr Documented by: [id number] Infusion: 07/05/19 15:50 Dose: 0 mls/hr Documented by: [id number] Admin: 07/05/19 12:39 Dose: 100 mls/hr Documented by: [id number] Infusion: 07/05/19 02:15 Dose: 100 mls/hr Documented by: [id number] Admin: 07/04/19 23:35 Dose: 100 mls/hr Documented by: [id number] Infusion: 07/04/19 14:00 Dose: 0 mls/hr Documented by: [id number] Admin: 07/04/19 12:00 Dose: 100 mls/hr Documented by: [id number] Infusion: 07/04/19 02:36 Dose: 0 mls/hr Documented by: [id number] Admin: 07/04/19 00:33 Dose: 100 mls/hr Documented by: [id number] Metronidazole (Flagyl) 500 mg in 100 mls @ 100 mls/hr IV Q8H [facility] Stop: 07/13/19 21:59 Last Infusion: 07/06/19 06:43 Dose: 0 mls/hr Documented by: [id number] Admin: 07/06/19 05:43 Dose: 100 mls/hr Documented by: [id number] Infusion: 07/05/19 23:45 Dose: 0 mls/hr Documented by: [id number] Admin: 07/05/19 22:40 Dose: 100 mls/hr Documented by: [id number] Infusion: 07/05/19 15:50 Dose: 0 mls/hr Documented by: [id number] Admin: 07/05/19 14:17 Dose: 100 mls/hr Documented by: [id number] Infusion: 07/05/19 06:46 Dose: 0 mls/hr Documented by: [id number] Admin: 07/05/19 05:46 Dose: 100 mls/hr Documented by: [id number] Infusion: 07/04/19 23:22 Dose: 100 mls/hr Documented by: [id number] Admin: 07/04/19 22:09 Dose: 100 mls/hr Documented by: [id number] Infusion: 07/04/19 14:37 Dose: 0 mls/hr Documented by: [id number] Admin: 07/04/19 13:37 Dose: 100 mls/hr Documented by: [id number] Infusion: 07/04/19 06:59 Dose: 0 mls/hr Documented by: [id number] Admin: 07/04/19 05:57 Dose: 100 mls/hr Documented by: [id number] Infusion: 07/03/19 23:18 Dose: 0 mls/hr Documented by: [id number] Admin: 07/03/19 22:04 Dose: 100 mls/hr Documented by: [id number] Multivitamins (Multivitamin Tab) 1 tab PO DAILY [facility] Stop: 08/03/19 08:59 Last Admin: 07/06/19 08:10 Dose: 1 tab Documented by: [id number] Admin: 07/05/19 08:11 Dose: 1 tab Documented by: [id number] Admin: 07/04/19 08:38 Dose: 1 tab Documented by: [id number] Multivitamins/Minerals (Caltrate Plus) 1 tab PO BID [facility] Stop: 08/02/19 20:59 Last Admin: 07/06/19 08:11 Dose: 1 tab Documented by: [id number] Admin: 07/05/19 20:01 Dose: 1 tab Documented by: [id number] Admin: 07/05/19 08:11 Dose: 1 tab Documented by: [id number] Admin: 07/04/19 20:29 Dose: 1 tab Documented by: [id number] Admin: 07/04/19 08:38 Dose: 1 tab Documented by: [id number] Admin: 07/03/19 20:39 Dose: 1 tab Documented by: [id number] Simvastatin (Zocor) 40 mg PO QPM [facility] Stop: 08/02/19 20:59 Last Admin: 07/05/19 20:00 Dose: 40 mg Documented by: [id number] Admin: 07/04/19 20:30 Dose: 40 mg Documented by: [id number] Admin: 07/03/19 20:38 Dose: 40 mg Documented by: [id number] Discontinued Medications Ciprofloxacin (Cipro) 500 mg PO NOW STA Stop: 07/03/19 14:26 Last Admin: 07/03/19 14:33 Dose: 500 mg Documented by: [id number] Sodium Chloride (Nss 1000ml) 1,000 mls @ 80 mls/hr IV .[id number] [facility] Stop: 07/04/19 05:35 Last Infusion: 07/04/19 06:05 Dose: 0 mls/hr Documented by: [id number] Admin: 07/03/19 17:34 Dose: 80 mls/hr Documented by: [id number] Ioversol (Optiray 320 100ml) 93 ml IV ONCE PRN PRN Reason: Interaction Checking Stop: 07/07/19 10:30 Last Admin: 07/03/19 10:32 Dose: 93 ml Documented by: [id number] Metronidazole (Flagyl) 500 mg PO NOW STA Stop: 07/03/19 14:26 Last Admin: 07/03/19 14:33 Dose: 500 mg Documented by: [id number] Medical Decision Making Differential Diagnosis Differential Diagnosis includes but is not limited to dehydration, stroke, anemia, hypoglycemia, hyponatremia, hypernatremia, urinary tract infection, pneumonia, bronchitis, sepsis, gastroenteritis, additional abdominal pathology, metabolic abnormalities and infections. Medical Records Attestation: I reviewed the patient's medical records. Home Medications Current Medication List: was personally reviewed by me Laboratory Data Attestation: I reviewed the patient's lab results. Result diagrams: 07/06/19 05:33 07/06/19 05:33 Lab Results 07/03/19 07/03/19 07/03/19 Range/Units 09:28 09:28 09:28 WBC 8.06 (4.8-10.8) K/uL RBC 3.76 L (4.2-5.4) M/uL Hgb 12.1 (12.0-16.0) g/dL Hct 36.7 L (37-47) % MCV 97.6 (80-100) fL MCH 32.2 (25-34) pg MCHC 33.0 (32-36) g/dL RDW Std Deviation 47.7 H (36.4-46.3) fL RDW Coeff of Harmony 13.4 (11.5-14.5) % Plt Count 250 (130-400) K/uL MPV 9.7 (7.4-10.4) fL Immature Gran % (Auto) 0.1 % Neut % (Auto) 71.6 % Lymph % (Auto) 9.2 % Ellis % (Auto) 18.5 % Eos % (Auto) 0.4 % Baso % (Auto) 0.2 % Immature Gran # (Auto) 0.01 (0.00-0.02) K/uL Neut # (Auto) 5.77 (1.4-6.5) K/uL Lymph # (Auto) 0.74 L (1.2-3.4) K/uL Ellis # (Auto) 1.49 H (0.11-0.59) K/uL Eos # (Auto) 0.03 (0-0.5) K/uL Baso # (Auto) 0.02 (0-0.2) K/uL Sodium 137 (136-145) mmol/L Potassium 4.2 (3.5-5.1) mmol/L Chloride 102 (98-107) mmol/L Carbon Dioxide 28 (21-32) mmol/L Anion Gap 7.0 (3-11) BUN 32 H (7-18) mg/dl Creatinine 1.14 (0.6-1.2) mg/dl Est Cr Clr Drug Dosing 39.8 ml/min Est GFR ( Amer) 51.9 Est GFR (Non-Af Amer) 44.7 BUN/Creatinine Ratio 27.9 H (10-20) Glucose 137 H (70-99) mg/dl Calcium 9.3 (8.5-10.1) mg/dl Total Bilirubin 0.9 (0.2-1) mg/dl AST 18 (15-37) U/L ALT 20 (12-78) U/L Alkaline Phosphatase 30 L (45-117) U/L Total Creatine Kinase 85 (26-192) U/L Troponin I < 0.015 (0-0.045) ng/ml NT-Pro-B Natriuret Pep 230 (0-1800) pg/ml Total Protein 7.2 (6.4-8.2) gm/dl Albumin 2.8 L (3.4-5.0) gm/dl Globulin 4.4 H (2.5-4.0) gm/dl Albumin/Globulin Ratio 0.6 L (0.9-2) TSH 0.897 (0.300-4.500) uIu/ml Urine Color Urine Appearance (Clear) Urine pH (4.5-7.5) Ur Specific [place] (1.000-1.030) Urine Protein (Negative) Urine Glucose (UA) (Negative) Urine Ketones (Negative) Urine Blood (Negative) Urine Nitrite (Negative) Urine Bilirubin (Negative) Urine Urobilinogen (Negative) Ur Leukocyte Esterase (Negative) Urine WBC (Auto) (0-5) /hpf Urine RBC (Auto) (0-4) /hpf U Hyaline Cast (Auto) (0-5) /lpf U Epithel Cells (Auto) (0-5) /lpf Urine Bacteria (Auto) (Negative) Ur Renal Epithelial Cell WBC Casts (0) /lpf Urine Mucus (None Prsent) Urine Yeast 07/03/19 Range/Units 09:55 WBC (4.8-10.8) K/uL RBC (4.2-5.4) M/uL Hgb (12.0-16.0) g/dL Hct (37-47) % MCV (80-100) fL MCH (25-34) pg MCHC (32-36) g/dL RDW Std Deviation (36.4-46.3) fL RDW Coeff of Harmony (11.5-14.5) % Plt Count (130-400) K/uL MPV (7.4-10.4) fL Immature Gran % (Auto) % Neut % (Auto) % Lymph % (Auto) % Ellis % (Auto) % Eos % (Auto) % Baso % (Auto) % Immature Gran # (Auto) (0.00-0.02) K/uL Neut # (Auto) (1.4-6.5) K/uL Lymph # (Auto) (1.2-3.4) K/uL Ellis # (Auto) (0.11-0.59) K/uL Eos # (Auto) (0-0.5) K/uL Baso # (Auto) (0-0.2) K/uL Sodium (136-145) mmol/L Potassium (3.5-5.1) mmol/L Chloride (98-107) mmol/L Carbon Dioxide (21-32) mmol/L Anion Gap (3-11) BUN (7-18) mg/dl Creatinine (0.6-1.2) mg/dl Est Cr Clr Drug Dosing ml/min Est GFR ( Amer) Est GFR (Non-Af Amer) BUN/Creatinine Ratio (10-20) Glucose (70-99) mg/dl Calcium (8.5-10.1) mg/dl Total Bilirubin (0.2-1) mg/dl AST (15-37) U/L ALT (12-78) U/L Alkaline Phosphatase (45-117) U/L Total Creatine Kinase (26-192) U/L Troponin I (0-0.045) ng/ml NT-Pro-B Natriuret Pep (0-1800) pg/ml Total Protein (6.4-8.2) gm/dl Albumin (3.4-5.0) gm/dl Globulin (2.5-4.0) gm/dl Albumin/Globulin Ratio (0.9-2) TSH (0.300-4.500) uIu/ml Urine Color Dark Yellow Urine Appearance Clear (Clear) Urine pH 5.0 (4.5-7.5) Ur Specific [place] 1.025 (1.000-1.030) Urine Protein Trace H (Negative) Urine Glucose (UA) Negative (Negative) Urine Ketones Trace H (Negative) Urine Blood Negative (Negative) Urine Nitrite Negative (Negative) Urine Bilirubin Negative (Negative) Urine Urobilinogen Negative (Negative) Ur Leukocyte Esterase Trace H (Negative) Urine WBC (Auto) 10-30 H (0-5) /hpf Urine RBC (Auto) 0-4 (0-4) /hpf U Hyaline Cast (Auto) 1-5 (0-5) /lpf U Epithel Cells (Auto) >30 H (0-5) /lpf Urine Bacteria (Auto) 1+ H (Negative) Ur Renal Epithelial Cell Not Reportable WBC Casts 1-5 H (0) /lpf Urine Mucus Present A (None Prsent) Urine Yeast Not Reportable Imaging Data Radiologist's Impression: Radiology results as stated below per my review and the radiologist's interpretation: CT cervical spine wo con CT DOSE: 1458.97 mGy.cm CLINICAL HISTORY: 84 years-old Female with fall. Acute head and neck injury status post fall COMPARISON: Head CT of same day, CT cervical spine 09/09/2018 TECHNIQUE: Multiple axial CT images of the cervical spine were obtained without contrast. A dose lowering technique was utilized adhering to the principles of ALARA. FINDINGS: Demineralized appearance the bones. Severe disc space narrowing at C4-C5, C5-C6 and C6-C7 with multilevel posterior disc osteophyte complex formations. Moderate multilevel facet arthrosis. Nuchal ligament calcifications. Calcifications of the ligamentum flavum. Severe degenerative changes at C1-C2. No acute cervical spine fracture or subluxation. Evaluation of the central canal and neuroforamina is better assessed by MRI. Multilevel foraminal narrowing is noted. Imaged ribs appear intact. Pleural-parenchymal scarring at the right lung apex. No pneumothorax. No prevertebral soft tissue swelling. Calcifications of the bilateral carotid bulbs and internal carotid arteries. IMPRESSION: No acute cervical spine fracture or subluxation ACT 112: Negative or not required by law. The above report was generated using voice recognition software. It may contain grammatical, syntax or spelling errors. Electronically signed by: Mode Correia M.D. 07/03/2019 10:[address] head/brain wo con CLINICAL HISTORY: 84 years-old Female with fall. Acute head injury status post fall TECHNIQUE: Multiple axial CT images of the head were obtained without contrast. A dose lowering technique was utilized adhering to the principles of ALARA. COMPARISON: Head CT 09/09/2018. FINDINGS: No acute intracranial hemorrhage, midline shift, intracranial mass, hydrocephalus, territorial ischemia or abnormal extra-axial collection. Age- related involutional changes with ex vacuo ventriculomegaly. White matter hypodensities redemonstrated suggestive of chronic cardiovascular ischemic disease. The calvarium is intact. Prior bilateral lens replacement. The paranasal sinuses, mastoid air cells, and middle ear cavities are clear. IMPRESSION: No acute intracranial abnormality or calvarial fracture. ACT 112: Negative or not required by law. The above report was generated using voice recognition software. It may contain grammatical, syntax or spelling errors. Electronically signed by: Mode Correia M.D. 07/03/2019 10:35 AM XR chest 1V portable HISTORY: 84 years-old Female weakness acute weakness COMPARISON: Chest radiograph 09/09/2018 TECHNIQUE: Portable AP view of the chest FINDINGS: Cardiac silhouette is enlarged, unchanged. Calcified plaque of the thoracic aor tic arch. Chronic interstitial coarsening. No pneumothorax or large pleural effusion. Minimal ill-defined airspace opacities of the right midlung appear new from comparison. Degenerative changes of the shoulders and spine. IMPRESSION: 1. Cardiomegaly without overt pulmonary edema. 2. Chronic interstitial coarsening with new ill-defined right midlung opacity suggestive of summation density versus focal pneumonitis. ACT 112: Negative or not required by law. The above report was generated using voice recognition software. It may contain grammatical, syntax or spelling errors. Electronically signed by: Mode Correia M.D. 07/03/2019 10:15 AM ABDOMEN AND PELVIS CT WITH IV CONTRAST HISTORY: Acute lower abdominal pain. Acute fall diverticulitis TECHNIQUE: Multiaxial CT images of the abdomen and pelvis were performed following the IV administration of 93 cc of Optiray 320, A dose lowering technique was utilized adhering to the principles of ALARA. COMPARISON STUDY: None. FINDINGS: Asymmetric groundglass opacities of the left lung base with mild subsegmental bibasilar atelectasis. No pneumatosis or pneumoperitoneum identified. The imaged inferior cardiac chambers are enlarged. Coronary arterial calcifications are noted. The spleen, and right adrenal gland are unremarkable. Thickening of the left adrenal gland suggests hyperplasia. Ovoid cystic structure of the uncinate process pancreas measures 1.1 x 0.6 cm on image 153 series 7 suggestive of a sidebranch IPMN versus mucinous cyst. Gallbladder distention with cholelithiasis. Mild intrahepatic and extrahepatic biliary ductal dilation, common bile duct measuring up to 10 mm. No obstructing lesion or calcification of the biliary tree identified. Liver is otherwise unremarkable. Probable cyst of the inferior right hepatic lobe, 4 mm. Patency of the hepatic and portal veins. External renal pelvis noted on the right. No renal or ureteral calculi. Decompressed urinary bladder. 9 mm indeterminate cystic focus of the left adnexum. Extensive calcified plaque of the abdominal aorta without aneurysm. No adenopathy. There is no small bowel obstruction. Extensive fecal retention of the rectum with moderate to extensive formed stool throughout the remainder of the colon. Colonic diverticulosis. Wall thickening of the colon is noted extending from the distal transverse colon through the sigmoid segment with mild adjacent inflammatory stranding. Terminal ileum is noninflamed. Normal appendix. Soft tissues are unremarkable. No acute displaced rib fracture identified. Demineralized appearance of the bones. Lumbar levoscoliosis. Degenerative changes of the SI joints. IMPRESSION: 1. Mild wall thickening of the colon with mild associated inflammatory stranding extends from the mid transverse segment through the distal sigmoid suggestive of a nonspecific infectious or inflammatory colitis. 2. Colonic diverticulosis. 3. No pneumatosis or pneumoperitoneum. No drainable fluid collection 4. Normal appendix. 5. Moderate to extensive constipation. 6. Distended gallbladder with cholelithiasis. Additionally, there is mild intrahepatic and extrahepatic biliary ductal dilation without obstructing calculus or lesion identified. Correlate with LFTs. 7. Additional findings as above. ACT 112: Negative or not required by law. The above report was generated using voice recognition software. It may contain grammatical, syntax or spelling errors. Electronically signed by: Mode Correia M.D. 07/03/2019 10:53 AM ECG Data Attestation: I personally reviewed and interpreted this ECG as follows: Indication: + weakness Rate (beats per minute): 78 Rhythm: + sinus rhythm (unusual P axis) ECG Intervals/blocks: + Normal QT ECG [place]: + Left axis deviation (possible) ECG ST segments: + ST depression (lateral) Additional Comments: An order for cardiac monitoring was placed and pt was found to be in a sinus rhythm at Blood Pressure Blood Pressure Findings: Normal blood pressure Blood Pressure Disposition: did not require urgent referral MDM Narrative This pt was evaluated and appeared to be in no distress. IV access was obtained and lab work was drawn. Pt was placed on the [address]. [address] head and c- spine are negative for acute traumatic injury. CT abd and pelvis was performed to evaluate the several days of LLQ pain. CT is significant for fecal retention and colitis of the distal transverse and sigmoid colon. This lab work reveals a normal WBC. UA is clear. Pt was given po cipro and flagyl for colitis, although it may just be r/t constipation. I did speak with pt and family at the bedside. Daughter is concerned that the pt is in need of rehab care. She is at home alone and family will be working. After consultation with case management, pt's insurance will not preauthorize a rehab stay from the ED on weekends. She was d/w the hospitalist for further management. Impression & Plan Weak, Fall, Colitis, Constipation Discharge Plan Visit Data *Final* Discharge Date/Time: 07/03/19 16:20 Chief Complaint: Fall Stated Complaint: FALL, LEG WEAKNESS, R KNEE PAIN ED Provider: Radha Becker Discharge Problem: Weak, Fall, Colitis, Constipation Patient Disposition: Admitted As Inpatient Discharge Instructions Interventions: ED Discharge Assessment Last Done: 07/03/19 16:20 The scribe's documentation has been prepared under my direction and personally reviewed by me in its entirety. I confirm that the note above accurately reflects all work, treatment, procedures, and medical decision making performed by me.
[2019-07-03] MEDS ORDERED: metroNIDAZOLE 500 MG TAB PO STA (14:25)
[2019-07-03] MEDS ORDERED: CIPROFLOXACIN 500 MG TAB PO STA (14:25)
--- NOTE | 2019-07-03 16:03 | History & Physical Report ---
Date of Service July 03, 2019 Assessment & Plan (1) Colitis: Admit to PCU on telemetry. Vital signs every 4 hours. Started Cipro 400 mg IV twice daily and metronidazole 500 mg IV every 8 hours for bacterial colitis. Gentle IV fluid hydration Patient stated that she tolerates food very well and she had lunch in the emergency room. Monitor electrolytes and replenish Monitor CBC DVT prophylaxis Lovenox 40 mg subcu daily Full code Present on Admission?: Yes (2) Constipation: Patient states that she has regular bowel movement this morning. Continue monitoring Present on Admission?: Yes (3) Parkinsonism: Carbidopa 12.5 mg / 125 mg p.o. 3 times daily Present on Admission?: Yes (4) Ambulatory dysfunction: Continue calcium carbonate 600 mg / 1500 mg vitamin D3 200 units 1 tablet p.o. twice daily. Physical and Occupational Therapy Patient will need permanent placement in the residential upon discharge because she lives by herself. Present on Admission?: Yes (5) Altered mental status: Improving, by the time when I was examining patient she was completely alert and oriented and she was sitting up in the bed and eating lunch. Patient was able to respond to all questions. 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 Present on Admission?: Yes History of Present Illness Chief Complaint: Dizziness and mechanical fall Primary Care Provider: Jeanmarie Elizalde MD The patient is an 84 years old female with past medical history of transient ischemic attack, subdural hematoma, stroke, fall, vertigo, hypertension, degenerative disc disease, radiculopathy of her legs, parkinsonism who was brought by EMS to the emergency room after her legs felt weak and she fell this morning. Patient reports that she hit her head but very mildly and she was able to press her medical alert button and called 911. Patient did not lose consciousness during the episode and denies any neck or head pain. Patient admits having recently abdominal pain but denies melena or hematochezia or history of diverticulitis. Patient was recently in SNF at [facility] and she was discharged home just recently. She lives alone. Per patient daughter who is sitting next to her bedside patient is not able to take care of herself at home as she needs permanent placement. EKG is reviewed and shows unusual P axis possible ectopic atrial rhythm, nonspecific ST and T wave abnormality and T wave inversion evident in lateral leads. Labs are reviewed: WBC is 8.06, hemoglobin 12.1, hematocrit 3 6.7, platelets 250, sodium 137, potassium 4.2, chloride 102, carbon dioxide 28, anion gap 7, BUN 32, creatinine 1.14, GFR 44.7, albumin 2.8, globulin 4.4, TSH 0.897. Urine positive for trace protein, trace ketones, trace leukocyte esterase WBCs 10-30, and 1+ bacteria. CT of the head no acute intracranial abnormality or calvarial fracture. Chest x-rays are significant for cardiomegaly without overt pulmonary edema. Chronic interstitial coarsening with new ill-defined right midlung opacity suggestive of summation density versus focal pneumonitis. CT of the abdomen and pelvis shows mild wall thickening of the colon with mild associated inflammatory stranding extends from the mild transverse segmental through the distal sigmoid suggestive of a nonspecific infectious of inflammatory colitis. Colonic diverticulosis. No pneumatosis or pneumoperitoneum. No drainable fluid collection. Normal appendix. Moderate or extensive constipation. Distended gallbladder with cholelithiasis. Additionally there is mild intrahepatic and extra hepatic biliary ductal dilatation without obstructing calculus or lesion identified. Correlate with LFTs. Decision was made to admit patient to PCU on telemetry for inflammatory infectious colitis, mechanical fall and physical and Occupational Therapy and permanent placement. Allergies Allergy/AdvReac Type Severity Reaction Status Date / Time No Known Allergies Allergy Unverified 07/03/19 09:14 Home Medications Home Medications Medication Instructions Recorded Confirmed Type atenolol 25 mg PO DAILY 09/09/18 07/03/19 History multivitamin 1 tab PO DAILY 09/09/18 07/03/19 History simvastatin 40 mg PO QPM 09/09/18 07/03/19 History aspirin 81 mg tablet 81 mg PO DAILY tab 03/22/19 07/03/19 History calcium carbonate 600 mg (1,500 1 tab PO BID tab 03/22/19 07/03/19 History mg)-vitamin D3 200 unit tablet acetaminophen [Mapap 650 mg PO Q4H PRN #30 tab 05/16/19 07/03/19 Rx (acetaminophen)] carbidopa 25 mg-levodopa 250 mg 0.5 tab PO TID tab 05/30/19 07/03/19 History tablet Past Med/Surg History Medical History Altered mental status Borderline hypertension (Chronic) Fall (Acute) Stroke Subdural hematoma (Acute) TIA (transient ischemic attack) Surgical History No pertinent past surgical history Family History Other No significant past surgical history Social History Preferred Language: Thai Communication Ability: Effective Laboratory Geneticist Required: No Beliefs That Will Affect Care: None marital status: / Current Living Situation: Alone Other Information That Helps Us Care for You: No Feels Safe at Home: Yes Safety Concerns: Feels Safe At This Time Smoking Status: Never smoker Do You Dip or Chew Tobacco: No ; Second Hand Exposure: No ; Tobacco Cessation Education Requested by Patient: No Hx Alcohol Use: No Hx Substance Use: No Review of Systems Review of Systems: All systems reviewed & are unremarkable except as noted in HPI & below Physical Exam Constitutional: WD/WN, vitals as above well developed, + ill appearing and + thin Eyes: PERRL, conjunctivae normal, anicteric sclerae ENMT: external ear and nose normal, oropharynx normal Neck: trachea midline, no thyromegaly Respiratory: normal respiratory effort, lungs clear to auscultation Auscultation: + crackles and + wheezes Cardiovascular: Rate/Rhythm: + irregularly irregular Vessels: dorsalis pedis pulses present Gastrointestinal (Abdomen): Percussion/Palpation: + abdomen tender and abdomen soft Musculoskeletal: no cyanosis or clubbing, extremities motor strength 5/5 Skin: no rashes, warm and dry Neurologic: patellar DTR's 2+ bilat, sensation intact Psychiatric: Orientation: oriented x 3, oriented to person, oriented to place, oriented to time and cooperative Mild to moderate dementia Lymphatic: no cervical or axillary lymphadenopathy Results & Data Vital Signs (Past 12 Hours) Vital Signs Temp Pulse Pulse Resp BP BP Pulse Ox 07/03/19 15:00 76 20 114/46 L 07/03/19 14:30 74 17 102/48 L 95 07/03/19 13:30 72 16 123/51 L 95 07/03/19 12:00 78 16 130/58 L 95 07/03/19 10:53 17 95 07/03/19 10:30 72 17 139/57 L 98 07/03/19 08:59 36.7 C 80 17 116/60 96 Code Status & VTE Plan Code Status Full code VTE Prophylaxis Plan VTE Prophylaxis will be ordered: Yes PG Care Time/CCT Total # of Minutes Spent Total Time Spent with Patient: Total time spent is greater than 50% in coordination of care (as documented) at patient's floor/unit and/or counseling patient: Coding Level of Care Code 47494 Initial Inpt Care Lvl 3 Diagnoses Colitis K52.9 Constipation K59.00 Parkinsonism G20 Ambulatory dysfunction R26.2 Altered mental status R41.82
[2019-07-03 16:43] LABS: Thyroid Stimulating Hormone 0.897 uIu/ml (0.300-4.500)
[2019-07-03] MEDS ORDERED: MAGNESIUM HYDROXIDE SUSP 30 ML UDC PO PRN (17:06)
[2019-07-03] MEDS ORDERED: SODIUM CHLORIDE 0.9% 1000ML 1,000 ML IV SCH (17:06)
[2019-07-03] MEDS ORDERED: ACETAMINOPHEN 325 MG TAB PO PRN (17:06)
[2019-07-03] MEDS ORDERED: ALUMINUM/MAGNESIUM SUSP 30 ML UDC PO PRN (17:06)
--- NOTE | 2019-07-03 18:14 | Electrocardiogram Report ---
Test Reason : Blood Pressure : / mmHG Vent. Rate : 078 BPM Atrial Rate : 078 BPM P-R Int : 130 ms QRS Dur : 094 ms QT Int : 376 ms P-R-T Axes : -34 -05 076 degrees QTc Int : 428 ms Poor data quality, interpretation may be adversely affected Unusual P axis, possible ectopic atrial rhythm Nonspecific ST and T wave abnormality Abnormal ECG When compared with ECG of 09-SEP-2018 13:10, T wave inversion now evident in Lateral leads Confirmed by Jeanmarie Agustin ([id number]) on 07/03/2019 6:14:13 PM Referred By: REFERRED SELF Confirmed By:Ryland Agustin
[2019-07-03] MEDS: ENOXAPARIN INJ 40 MG/0.4 ML SYR SQ SCH (19:09)
[2019-07-03] MEDS: CARBIDOPA/LEVODOPA 25-250 1 EA TAB PO SCH (20:38)
[2019-07-03] MEDS: SIMVASTATIN 40 MG TAB PO SCH (20:38)
[2019-07-03] MEDS: CALCIUM 600MG + VIT D 400 IU TAB PO SCH (20:39)
[2019-07-03] MEDS: metroNIDAZOLE 500 MG/100 ML BAG IV SCH (22:04)
[2019-07-04] MEDS: CIPROFLOXACIN 400 MG/200 ML BAG IV SCH ×3 (00:33→23:35)
[2019-07-04] MEDS: metroNIDAZOLE 500 MG/100 ML BAG IV SCH ×3 (05:57→22:09)
[2019-07-04 06:06] LABS: Basophils # (auto) 0.02 K/uL (0-0.2); Basophils % (auto) 0.3 %; Eosinophils # (auto) 0.11 K/uL (0-0.5); Eosinophils % (auto) 1.4 %; Hematocrit (blood only) 33.1 % (37-47); Hemoglobin 10.7 g/dL (12.0-16.0); Immature Granulocytes # (auto) 0.02 K/uL (0.00-0.02); Immature Granulocytes % (auto) 0.3 %; Lymphocytes # (auto) 0.94 K/uL (1.2-3.4); Lymphocytes % (auto) 12.3 %; Mean Corpuscular Hemoglobin 31.7 pg (25-34); Mean Corpuscular Hgb Conc 32.3 g/dL (32-36); Mean Corpuscular Volume 97.9 fL (80-100); Mean Platelet Volume 9.4 fL (7.4-10.4); Monocytes # (auto) 1.08 K/uL (0.11-0.59); Monocytes % (auto) 14.1 %; Neutrophils # (auto) 5.47 K/uL (1.4-6.5); Neutrophils % (auto) 71.6 %; Platelet Count 236 K/uL (130-400); RDW Coefficient of Variation 13.7 % (11.5-14.5); Red Blood Count 3.38 M/uL (4.2-5.4); White Blood Count 7.64 K/uL (4.8-10.8)
[2019-07-04 06:38] LABS: Albumin Level 2.2 gm/dl (3.4-5.0); BUN Creatinine Ratio 32.6 (10-20); Calcium 8.5 mg/dl (8.5-10.1); Creatinine Clr Calc Pharmacy 56.7 ml/min; Est GFR (African American) 79.6; Est GFR (Non-African American) 68.7; Estimated Average Glucose 123 mg/dl; Hemoglobin A1C 5.9 % (4.5-5.6); Potassium 3.5 mmol/L (3.5-5.1)
[2019-07-04 06:39] LABS: Albumin Globulin Ratio 0.6 (0.9-2); Bilirubin,Total 0.8 mg/dl (0.2-1); Total Protein 6.2 gm/dl (6.4-8.2)
--- NOTE | 2019-07-04 08:07 | Hospitalist Progress Note ---
Date of Service July 04, 2019 Assessment & Plan (1) Colitis: Continue admit to PCU on telemetry. Vital signs every 4 hours. Continue Cipro 400 mg IV twice daily and metronidazole 500 mg IV every 8 hours for bacterial colitis. Gentle IV fluid hydration Patient stated that she tolerates food very well and she had lunch in the emergency room. Monitor electrolytes and replenish Monitor CBC DVT prophylaxis Lovenox 40 mg subcu daily Full code (2) Constipation: Patient states that she has regular bowel movement this morning. Continue monitoring (3) Parkinsonism: Carbidopa 12.5 mg / 125 mg p.o. 3 times daily (4) Ambulatory dysfunction: Continue calcium carbonate 600 mg / 1500 mg vitamin D3 200 units 1 tablet p.o. twice daily. Physical and Occupational Therapy Patient will need permanent placement in the retirement upon discharge because she lives by herself. (5) Altered mental status: Improving, by the time when I was examining patient she was completely alert and oriented and she was sitting up in the bed and eating lunch. Patient was able to respond to all questions. 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 Subjective Patient seen and examined at the bedside. No acute event overnight. She is afebrile. Slowly improving. Appetite is slowly improving as well. Patient denies fever, chills, chest pain, shortness of breath, abdominal pain, frequency, urgency. Will discuss placement with correctional case records supervisor and and physical and Occupational Therapy. Review of Systems Review of Systems: All systems reviewed & are unremarkable except as noted in HPI & below Physical Exam Constitutional: WD/WN, vitals as above well developed, + ill appearing and + thin Eyes: PERRL, conjunctivae normal, anicteric sclerae ENMT: external ear and nose normal, oropharynx normal Neck: trachea midline, no thyromegaly Respiratory: normal respiratory effort, lungs clear to auscultation Auscultation: + crackles and + wheezes Cardiovascular: Rate/Rhythm: + irregularly irregular Vessels: dorsalis pedis pulses present Gastrointestinal (Abdomen): Percussion/Palpation: + abdomen tender and abdomen soft Musculoskeletal: no cyanosis or clubbing, extremities motor strength 5/5 Skin: no rashes, warm and dry Neurologic: patellar DTR's 2+ bilat, sensation intact Psychiatric: Orientation: oriented x 3, oriented to person, oriented to place, oriented to time and cooperative Lymphatic: no cervical or axillary lymphadenopathy Results & Data Vital Signs (Past 12 Hours) Vital Signs Temp Pulse Pulse Resp BP Pulse Ox 07/04/19 07:47 37.0 C 67 20 108/59 L 96 07/04/19 07:44 67 07/04/19 04:33 36.5 C 67 16 102/55 L 96 07/04/19 00:00 73 07/03/19 23:35 37.1 C 75 15 101/55 L 95 PG Care Time/CCT Total # of Minutes Spent Total Time Spent with Patient: Total time spent is greater than 50% in coordination of care (as documented) at patient's floor/unit and/or counseling patient: Coding Level of Care Code 79813 Subseq Hosp Care Lvl 3 Diagnoses Colitis K52.9 Constipation K59.00 Parkinsonism G20 Ambulatory dysfunction R26.2 Altered mental status R41.82
[2019-07-04] MEDS: ATENOLOL 25 MG TABLET PO SCH (08:37)
[2019-07-04] MEDS: ASPIRIN 81 MG ECTAB PO SCH (08:38)
[2019-07-04] MEDS: CARBIDOPA/LEVODOPA 25-250 1 EA TAB PO SCH ×3 (08:38→20:28)
[2019-07-04] MEDS: MULTIVITAMIN TAB PO SCH (08:38)
[2019-07-04] MEDS: CALCIUM 600MG + VIT D 400 IU TAB PO SCH ×2 (08:38→20:29)
[2019-07-04] MEDS: ENOXAPARIN INJ 40 MG/0.4 ML SYR SQ SCH (18:08)
[2019-07-04] MEDS: SIMVASTATIN 40 MG TAB PO SCH (20:30)
[2019-07-05] MEDS: metroNIDAZOLE 500 MG/100 ML BAG IV SCH ×3 (05:46→22:40)
[2019-07-05 06:35] LABS: Basophils # (auto) 0.01 K/uL (0-0.2); Basophils % (auto) 0.2 %; Eosinophils # (auto) 0.11 K/uL (0-0.5); Hematocrit (blood only) 32.3 % (37-47); Hemoglobin 10.6 g/dL (12.0-16.0); Immature Granulocytes # (auto) 0.02 K/uL (0.00-0.02); Immature Granulocytes % (auto) 0.4 %; Lymphocytes # (auto) 0.67 K/uL (1.2-3.4); Lymphocytes % (auto) 11.9 %; Mean Corpuscular Hemoglobin 31.8 pg (25-34); Mean Corpuscular Hgb Conc 32.8 g/dL (32-36); Mean Platelet Volume 9.8 fL (7.4-10.4); Monocytes # (auto) 0.74 K/uL (0.11-0.59); Monocytes % (auto) 13.2 %; Neutrophils # (auto) 4.06 K/uL (1.4-6.5); Neutrophils % (auto) 72.3 %; Platelet Count 231 K/uL (130-400); RDW Coefficient of Variation 13.6 % (11.5-14.5); RDW Standard Deviation 48.2 fL (36.4-46.3); Red Blood Count 3.33 M/uL (4.2-5.4); White Blood Count 5.61 K/uL (4.8-10.8)
[2019-07-05 07:18] LABS: Albumin Globulin Ratio 0.6 (0.9-2); Albumin Level 2.1 gm/dl (3.4-5.0); BUN Creatinine Ratio 16.9 (10-20); Bilirubin,Total 0.5 mg/dl (0.2-1); Calcium 8.5 mg/dl (8.5-10.1); Creatinine Clr Calc Pharmacy 64.8 ml/min; Est GFR (African American) 93.5; Est GFR (Non-African American) 80.7; Globulin 3.8 gm/dl (2.5-4.0); Potassium 3.6 mmol/L (3.5-5.1); Total Protein 5.9 gm/dl (6.4-8.2)
--- NOTE | 2019-07-05 08:07 | Hospitalist Progress Note ---
Date of Service July 05, 2019 Assessment & Plan (1) Colitis: Continue admit to PCU on telemetry. Vital signs every 4 hours. Continue Cipro 400 mg IV twice daily and metronidazole 500 mg IV every 8 hours for bacterial colitis Monitor electrolytes and replenish Monitor CBC DVT prophylaxis Lovenox 40 mg subcu daily Full code (2) Constipation: Patient states that she has regular bowel movement this morning. Continue monitoring (3) Parkinsonism: Carbidopa 12.5 mg / 125 mg p.o. 3 times daily (4) Ambulatory dysfunction: Continue calcium carbonate 600 mg / 1500 mg vitamin D3 200 units 1 tablet p.o. twice daily. Physical and Occupational Therapy [facility] because she lives by herself. (5) Altered mental status: Resolved (6) Discharge planning issues: Pt needs senior living for physical and Occupational Therapy and transition to permanent placement. Waiting for authorization from [facility]. Subjective Patient seen and examined at the bedside. No acute event overnight. She is afebrile. Slowly improving. Appetite is slowly improving as well. Patient denies fever, chills, chest pain, shortness of breath, abdominal pain, frequency, urgency. Will discuss placement with case consultant and and physical and Occupational Therapy. Review of Systems Review of Systems: All systems reviewed & are unremarkable except as noted in HPI & below Physical Exam Constitutional: WD/WN, vitals as above well developed, + ill appearing and + thin Eyes: PERRL, conjunctivae normal, anicteric sclerae ENMT: external ear and nose normal, oropharynx normal Neck: trachea midline, no thyromegaly Respiratory: normal respiratory effort, lungs clear to auscultation Auscultation: no crackles and no wheezes Cardiovascular: Rate/Rhythm: + irregularly irregular Vessels: dorsalis pedis pulses present Gastrointestinal (Abdomen): Percussion/Palpation: abdomen soft; abdomen nontender Musculoskeletal: no cyanosis or clubbing, extremities motor strength 5/5 Skin: no rashes, warm and dry Neurologic: patellar DTR's 2+ bilat, sensation intact Psychiatric: Orientation: oriented x 3, oriented to person, oriented to place, oriented to time and cooperative Lymphatic: no cervical or axillary lymphadenopathy Results & Data Vital Signs (Past 12 Hours) Vital Signs Temp Pulse Pulse Resp BP BP Pulse Ox 07/05/19 07:51 36.7 C 67 18 114/66 95 07/05/19 07:14 71 07/05/19 04:28 36.5 C 69 18 116/58 L 97 07/04/19 23:11 36.9 C 65 16 96/54 L 95 PG Care Time/CCT Total # of Minutes Spent Total Time Spent with Patient: Total time spent is greater than 50% in coordination of care (as documented) at patient's floor/unit and/or counseling patient: Coding Level of Care Code 52839 Subseq Hosp Care Lvl 3 Diagnoses Colitis K52.9 Constipation K59.00 Parkinsonism G20 Ambulatory dysfunction R26.2 Altered mental status R41.82 Discharge planning issues Z02.9
[2019-07-05] MEDS: ATENOLOL 25 MG TABLET PO SCH (08:11)
[2019-07-05] MEDS: CARBIDOPA/LEVODOPA 25-250 1 EA TAB PO SCH ×3 (08:11→20:01)
[2019-07-05] MEDS: MULTIVITAMIN TAB PO SCH (08:11)
[2019-07-05] MEDS: CALCIUM 600MG + VIT D 400 IU TAB PO SCH ×2 (08:11→20:01)
[2019-07-05] MEDS: ASPIRIN 81 MG ECTAB PO SCH (08:12)
[2019-07-05] MEDS: CIPROFLOXACIN 400 MG/200 ML BAG IV SCH ×2 (12:39→23:46)
[2019-07-05] MEDS: SIMVASTATIN 40 MG TAB PO SCH (20:00)
[2019-07-05] MEDS: ENOXAPARIN INJ 40 MG/0.4 ML SYR SQ SCH (20:00)
[2019-07-06] MEDS: metroNIDAZOLE 500 MG/100 ML BAG IV SCH (05:43)
[2019-07-06 06:02] LABS: Basophils # (auto) 0.03 K/uL (0-0.2); Basophils % (auto) 0.5 %; Eosinophils # (auto) 0.11 K/uL (0-0.5); Eosinophils % (auto) 1.8 %; Hematocrit (blood only) 33.1 % (37-47); Hemoglobin 10.6 g/dL (12.0-16.0); Immature Granulocytes # (auto) 0.04 K/uL (0.00-0.02); Immature Granulocytes % (auto) 0.7 %; Lymphocytes # (auto) 0.99 K/uL (1.2-3.4); Lymphocytes % (auto) 16.6 %; Mean Corpuscular Hemoglobin 31.5 pg (25-34); Mean Corpuscular Volume 98.2 fL (80-100); Mean Platelet Volume 9.6 fL (7.4-10.4); Monocytes # (auto) 0.88 K/uL (0.11-0.59); Monocytes % (auto) 14.8 %; Neutrophils % (auto) 65.6 %; Platelet Count 245 K/uL (130-400); RDW Coefficient of Variation 13.6 % (11.5-14.5); RDW Standard Deviation 48.2 fL (36.4-46.3); Red Blood Count 3.37 M/uL (4.2-5.4); White Blood Count 5.95 K/uL (4.8-10.8)
[2019-07-06 06:34] LABS: Albumin Level 2.3 gm/dl (3.4-5.0); BUN Creatinine Ratio 12.6 (10-20); Calcium 8.6 mg/dl (8.5-10.1); Creatinine Clr Calc Pharmacy 70.8 ml/min; Est GFR (African American) 96.3; Est GFR (Non-African American) 83.1; Potassium 3.6 mmol/L (3.5-5.1)
[2019-07-06 06:37] LABS: Albumin Globulin Ratio 0.7 (0.9-2); Bilirubin,Total 0.4 mg/dl (0.2-1); Globulin 3.5 gm/dl (2.5-4.0); Total Protein 5.8 gm/dl (6.4-8.2)
[2019-07-06] MEDS: MULTIVITAMIN TAB PO SCH (08:10)
[2019-07-06] MEDS: ATENOLOL 25 MG TABLET PO SCH (08:10)
[2019-07-06] MEDS: ASPIRIN 81 MG ECTAB PO SCH (08:11)
[2019-07-06] MEDS: CALCIUM 600MG + VIT D 400 IU TAB PO SCH ×2 (08:11→20:20)
[2019-07-06] MEDS: CARBIDOPA/LEVODOPA 25-250 1 EA TAB PO SCH ×3 (08:11→20:20)
[2019-07-06] MEDS ORDERED: metroNIDAZOLE 500 MG TAB PO SCH (14:00)
[2019-07-06] MEDS ORDERED: CIPROFLOXACIN 500 MG TAB PO SCH (15:00)
--- NOTE | 2019-07-06 16:19 | XRay Report ---
XR KUB/Abdomen 1 view CLINICAL HISTORY: distension; assess fecal load COMPARISON STUDY: CT scan dated 07/03/2019 FINDINGS: There is mild gaseous prominence of both large and small bowel loops. The cecum measures 72 mm uncorrected for magnification. There is mild to moderate colonic stool. There is no evidence of o bstruction. There is a lumbar scoliosis. Degenerative changes are present within the cervical spine. There is a right upper quadrant calcification consistent with a gallstone. IMPRESSION: 1. Mild to moderate colonic stool 2. Nonobstructive bowel gas pattern 3. Cholelithiasis ACT 112: Negative or not required by law. Electronically signed by: Gary Hughes M.D. 07/06/2019 4:18 PM
[2019-07-06] MEDS ORDERED: bisacodyL 5 MG TABEC PO ONE ×2 (16:24→18:44)
[2019-07-06] MEDS: ENOXAPARIN INJ 40 MG/0.4 ML SYR SQ SCH (18:46)
[2019-07-06] MEDS: POLYETHYLENE (MIRALAX) 17 GM PACK PO SCH (18:46)
--- NOTE | 2019-07-06 19:19 | Ultrasound Report ---
ABDOMINAL ULTRASOUND, RIGHT UPPER QUADRANT HISTORY: recent CT abd w/ abnormal gall bladder. COMPARISON: Abdomen and pelvis CT 07/03/2019. FINDINGS: Pancreas: The pancreatic tail is obscured by overlying bowel gas. The remaining portions of the pancr eas are within normal limits. The uncinate process lesion seen on the prior CT is not well visualized on this study. Liver: Mildly enlarged measuring 19 cm in length. Gallbladder: A 3 cm gallstone. The gallbladder is slightly distended. No gallbladder wall thickening. There is a small amount of sludge identified within the gallbladder. Negative sonographic Lema sig n. CBD: 6 mm. Right kidney: No hydronephrosis. IMPRESSION: 1. Cholelithiasis. No gallbladder wall thickening. 2. Normal caliber common bile duct. 3. The small cystic lesion within the pancreatic head seen on the prior CT examination is not identif ied on this study. ACT 112: Negative or not required by law. Electronically signed by: Peter Reese M.D. 07/06/2019 7:17 PM
[2019-07-06] MEDS: SIMVASTATIN 40 MG TAB PO SCH (20:20)
--- NOTE | 2019-07-06 22:05 | Hospitalist Progress Note ---
Date of Service July 06, 2019 Assessment & Plan (1) Colitis: admission CT showed possible colitis. presentation and symptoms were not consistent with such. she has been constipated; there has been no diarrhea. there has been no BRBPR. was this artifactual?? c. diff and stool studies negative. would stop the cipro/flagyl. (2) Abnormal finding of biliary tract: admission CT abd/pelvis with distended gall bladder, gallstones, intra & extra-hepatic biliary ductal dilatation. does not have symptoms currently of biliary tract disease and LFTs are normal. significance uncertain. will check RUQ u/s and go from there. (3) Constipation: repeat KUB x-ray today improved cont miralax BID for maintenance (4) Parkinsonism: Carbidopa/levodopa 3 times daily (5) Ambulatory dysfunction: continue PT/OT (6) Altered mental status: baseline mental status?? will check with daughter (7) Weak: cont PT/OT 2nd to UTI? other entity? (8) Subdural hematoma: history of such (9) UTI (urinary tract infection): 2nd alpha strep stop cipro/flagyl keflex 500mg BID x 7 days (10) Discharge planning issues: [facility] referral in process (11) DVT prophylaxis: lovenox daily left message for daughter on answering machine 07/06/19 Subjective patient reports no abd pain today. no nausea. appetite fair. wasn't sure when last BM was but documentation from staff suggests yesterday am. she doesn't recall any abdominal pain at home with meals or following meals. no recent weight loss. no BRBPR. tele normal overnight. Review of Systems Constitutional: no fever, no chills and no fatigue Respiratory: no dyspnea Cardiovascular: no chest pain Physical Exam Constitutional: well developed and well nourished; no acute distress ENMT: external ear and nose normal, oropharynx normal Respiratory: normal respiratory effort, lungs clear to auscultation Cardiovascular: Rate/Rhythm: regular rate and regular rhythm Heart Sounds: normal S1 and normal S2; no murmur Vessels: posterior tibial pulses present and dorsalis pedis pulses present; no JVD Gastrointestinal (Abdomen): Inspection/Auscultation: + abdomen distended and normal bowel sounds Percussion/Palpation: abdomen nontender and no hepa tosplenomegaly Psychiatric: Orientation: alert, oriented to person and oriented to place; + not oriented to time Results & Data Vital Signs (Past 12 Hours) Vital Signs Temp Pulse Pulse Resp BP BP Pulse Ox 07/06/19 19:33 36.6 C 73 24 122/75 100 07/06/19 18:31 71 07/06/19 15:02 36.8 C 64 14 118/70 98 07/06/19 12:37 36.8 C 67 18 111/65 95 Laboratory Results Laboratory Results - last 24 hr 07/06/19 07/06/19 05:33 05:33 WBC 5.95 RBC 3.37 L Hgb 10.6 L Hct 33.1 L MCV 98.2 MCH 31.5 MCHC 32.0 RDW Std Deviation 48.2 H RDW Coeff of [place] 13.6 Plt Count 245 MPV 9.6 Immature Gran % (Auto) 0.7 Neut % (Auto) 65.6 Lymph % (Auto) 16.6 [place] % (Auto) 14.8 Eos % (Auto) 1.8 Baso % (Auto) 0.5 Immature Gran # (Auto) 0.04 H Neut # (Auto) 3.90 Lymph # (Auto) 0.99 L [place] # (Auto) 0.88 H Eos # (Auto) 0.11 Baso # (Auto) 0.03 Sodium 139 Potassium 3.6 Chloride 108 H Carbon Dioxide 26 Anion Gap 5.0 BUN 8 Creatinine 0.64 Est Cr Clr Drug Dosing 70.8 Est GFR ( Amer) 96.3 Est GFR (Non-Af Amer) 83.1 BUN/Creatinine Ratio 12.6 Glucose 108 H Calcium 8.6 Total Bilirubin 0.4 AST 12 L ALT 10 L Alkaline Phosphatase 28 L Total Protein 5.8 L Albumin 2.3 L Globulin 3.5 Albumin/Globulin Ratio 0.7 L PG Care Time/CCT Total # of Minutes Spent Total Time Spent with Patient: Total time spent is greater than 50% in coordination of care (as documented) at patient's floor/unit and/or counseling patient: Coding Level of Care Code 95725 Subseq Hosp Care Lvl 3 Diagnoses Colitis K52.9 Abnormal finding of biliary tract R19.8 Constipation K59.09 Constipation type: other constipation type Parkinsonism G20 Parkinsonism type: unspecified Ambulatory dysfunction R26.2 Altered mental status R41.0 Altered mental status type: delirium Weak R53.1 Subdural hematoma [id number] UTI (urinary tract infection) N39.0 Urinary tract infection type: site unspecified Hematuria presence: without hematuria Discharge planning issues Z02.9 DVT prophylaxis Z29.9 (1) Parkinsonism Parkinsonism type: unspecified Qualified Code(s): G20 - Parkinson's disease (2) Altered mental status Altered mental status type: delirium Qualified Code(s): R41.0 - Disorientation, unspecified (3) Constipation Constipation type: other constipation type Qualified Code(s): K59.09 - Other constipation (4) UTI (urinary tract infection) Urinary tract infection type: site unspecified Hematuria presence: without hematuria Qualified Code(s): N39.0 - Urinary tract infection, site not specified
[2019-07-07 07:07] LABS: BUN Creatinine Ratio 14.6 (10-20); Calcium 8.9 mg/dl (8.5-10.1); Creatinine Clr Calc Pharmacy 74.3 ml/min; Est GFR (African American) 97.8; Est GFR (Non-African American) 84.4; Potassium 3.7 mmol/L (3.5-5.1)
[2019-07-07] MEDS: POLYETHYLENE (MIRALAX) 17 GM PACK PO SCH (07:41)
[2019-07-07] MEDS: ATENOLOL 25 MG TABLET PO SCH (07:41)
[2019-07-07] MEDS: ASPIRIN 81 MG ECTAB PO SCH (07:41)
[2019-07-07] MEDS: MULTIVITAMIN TAB PO SCH (07:42)
[2019-07-07] MEDS: CALCIUM 600MG + VIT D 400 IU TAB PO SCH (07:42)
[2019-07-07] MEDS: CARBIDOPA/LEVODOPA 25-250 1 EA TAB PO SCH ×2 (07:42→13:38)
[2019-07-07] MEDS ORDERED: cephALEXin 500 MG CAP PO SCH (09:00)
[2019-07-07] MEDS ORDERED: bisacodyL 10 MG SUPP PR ONE (12:33)
[2019-07-07 13:53] LABS: Comment DNR; Organism #1 DNR; Source STOOL
--- NOTE | 2019-07-07 14:09 | XRay Report ---
XR abdomen 2V w PA chest HISTORY: 84 years-old Female recent constipation; distension acute generalized abdominal pain with c onstipation and distention COMPARISON: KUB 07/06/2019, CT abdomen and pelvis 07/03/2019, chest radiograph 07/03/2019 TECHNIQUE: PA view of the chest with erect and supine views of the abdomen FINDINGS: Cardiac silhouette is mildly enlarged, unchanged. Chronic interstitial coarsening. No pneumothorax, l arge pleural effusion or overt pulmonary edema. Previously noted ill-defined right midlung opacity is not definitively seen on today's study. Degenerative changes of the shoulders and spine. Calcified p laque of the thoracic aortic arch. No pneumatosis or pneumoperitoneum. Bowel gas pattern is nonobstructive. Air-fluid level noted within the cecum. Mild fecal retention as improved from comparison. Cholelithiasis. No urolith identified. Lumbar levoscoliosis with multilevel degenerative changes. IMPRESSION: 1. Chronic interstitial lung disease. No acute cardiopulmonary abnormality identified. 2. Nonobstructive bowel gas pattern without pneumatosis or pneumoperitoneum. 3. Mild fecal retention, improved from the 07/06/2019 exam. 4. Cholelithiasis. ACT 112: Negative or not required by law. The above report was generated using voice recognition software. It may contain grammatical, syntax o r spelling errors. Electronically signed by: Mode Correia M.D. 07/07/2019 2:08 PM
--- NOTE | 2019-07-07 15:45 | Discharge Summary ---
Date of Service July 07, 2019 Admission HPI Per Admitting Provider The patient is an 84 years old female with past medical history of transient ischemic attack, subdural hematoma, stroke, fall, vertigo, hypertension, degenerative disc disease, radiculopathy of her legs, parkinsonism who was brought by EMS to the emergency room after her legs felt weak and she fell this morning. Patient reports that she hit her head but very mildly and she was able to press her medical alert button and called 911. Patient did not lose consciousness during the episode and denies any neck or head pain. Patient admits having recently abdominal pain but denies melena or hematochezia or history of diverticulitis. Patient was recently in SNF at [facility] and she was discharged home just recently. She lives alone. Per patient daughter who is sitting next to her bedside patient is not able to take care of herself at home as she needs permanent placement. EKG is reviewed and shows unusual P axis possible ectopic atrial rhythm, nonspecific ST and T wave abnormality and T wave inversion evident in lateral leads. Labs are reviewed: WBC is 8.06, hemoglobin 12.1, hematocrit 3 6.7, platelets 250, sodium 137, potassium 4.2, chloride 102, carbon dioxide 28, anion gap 7, BUN 32, creatinine 1.14, GFR 44.7, albumin 2.8, globulin 4.4, TSH 0.897. Urine positive for trace protein, trace ketones, trace leukocyte esterase WBCs 10-30, and 1+ bacteria. CT of the head no acute intracranial abnormality or calvarial fracture. Chest x-rays are significant for cardiomegaly without overt pulmonary edema. Chronic interstitial coarsening with new ill-defined right midlung opacity suggestive of summation density versus focal pneumonitis. CT of the abdomen and pelvis shows mild wall thickening of the colon with mild associated inflammatory stranding extends from the mild transverse segmental through the distal sigmoid suggestive of a nonspecific infectious of inflammatory colitis. Colonic diverticulosis. No pneumatosis or pneumoperitoneum. No drainable fluid collection. Normal appen senia. Moderate or extensive constipation. Distended gallbladder with cholelithiasis. Additionally there is mild intrahepatic and extra hepatic biliary ductal dilatation without obstructing calculus or lesion identified. Correlate with LFTs. Decision was made to admit patient to PCU on telemetry for inflammatory infectious colitis, mechanical fall and physical and Occupational Therapy and permanent placement. Discharge Data Allergies Allergy/AdvReac Type Severity Reaction Status Date / Time No Known Allergies Allergy Unverified 07/03/19 09:14 Consultations 07/03/19 14:24 ED Decision to Admit Stat Ordered Studies 07/03/19 09:23 CT cervical spine wo con Stat CT head/brain wo con Stat 07/03/19 09:30 CT abd pelvis IV con only Stat 07/06/19 12:03 US gallbladder Urgent Hospital Course (1) Colitis: admission CT showed possible colitis. presentation and symptoms were not consistent with such. she has been constipated; there has been no diarrhea. there has been no BRBPR. was this artifactual?? c. diff and stool studies negative. would stop the cipro/flagyl. (2) Abnormal finding of biliary tract: admission CT abd/pelvis with distended gall bladder, gallstones, intra & extra-hepatic biliary ductal dilatation. does not have symptoms currently of biliary tract disease and LFTs are normal. significance uncertain. will check RUQ u/s and go from there. (3) Constipation: repeat KUB x-ray today improved cont miralax BID for maintenance (4) Parkinsonism: Carbidopa/levodopa 3 times daily (5) Ambulatory dysfunction: continue PT/OT (6) Altered mental status: baseline mental status?? will check with daughter (7) Weak: cont PT/OT 2nd to UTI? other entity? (8) Subdural hematoma: history of such (9) UTI (urinary tract infection): 2nd alpha strep stop cipro/flagyl keflex 500mg BID x 7 days (10) Discharge planning issues: [facility] referral in process (11) DVT prophylaxis: lovenox daily left message for daughter on answering machine 07/06/19 Discharge Plan Discharge Items Patient Disposition: Transfer Care Home Fac Reason For Visit: DIZZINESS, MECHANICAL FALL, LLQ ABDOMINAL PAIN Discharge Diagnosis: 1. strep UTI (urinary tract infection) 2. weakness - possibly due to #1 above 3. severe constipation - improved 4. gallstones - however no evidence of cholecystitis (sick gall bladder) 5. abdominal pain - likely due to #3 6. very small cyst of the pancreas - follow-up imaging will be needed within 6- 12 months Activity: Resume your previous activity Non-emergency contact: Primary Care Provider Call non-emergency contact if: you have any medication questions, your symptoms worsen, your pain is not controlled, your pain is worsening, your pain is unusual for you, your pain is concerning for you and your temperature is above 101 Follow-up/Referrals: Norman Elizalde MD [Primary Care Provider] - (see medical office receptionist assistant of [facility] within 2-3 days ) Diet: Regular Addtl Attending Provider Instructions: You were treated for the above problems as listed in "discharge diagnoses." Recommendations - 1. finish a 4-day course of antibiotics for your urinary tract infection 2. continue on constipation medications for prevention/treatment of constipation - miralax + senakot every day 3. you will need a repeat CAT scan or MRI of the pancreas in 6-12 months to look at the cyst on your pancreas 4. although you have gallstones it does not appear that the gallstones are causing trouble at this time; watch for recurrent right upper abdominal pain following meals, nausea, etc. if you develop these symptoms please speak to your family doctor or a GI specialist as soon as possible Return to [facility] if - * you have recurrent abdominal discomforts/pain * you have vomiting * you have fever over 100.5 degrees * you have severe constipation * any other concerns Pending Studies at Discharge: No Stand-Alone Forms: My [facility] Skilled Items Patient informed of condition?: Yes DNR: No Discharge Level of Care: Skilled Communicable Disease: No Discharge Prognosis: Stable Lines: None Urinary Catheter: No Medications and DC Order Prescriptions: New cephalexin 500 mg Capsule 500 mg PO BID 4 Days Qty: 8 RF: 0 polyethylene glycol 3350 [Miralax] 17 gram Powder In Packet 17 g PO DAILY Qty: 30 RF: 3 sennosides [Senna Lax] 8.6 mg tablet 17.2 mg PO DAILY Qty: 60 RF: 3 Continued aspirin 81 mg tablet 81 mg PO DAILY RF: 0 calcium carbonate-vitamin D3 600 mg(1,500mg) -200 unit tablet 1 tab PO BID RF: 0 carbidopa-levodopa [Sinemet] 25-250 mg tablet 0.5 tab PO TID RF: 0 multivitamin Tablet 1 tab PO DAILY RF: 0 atenolol 25 mg tablet 25 mg PO DAILY RF: 0 simvastatin 40 mg tablet 40 mg PO QPM RF: 0 acetaminophen [Mapap (acetaminophen)] 325 mg Tablet 650 mg PO Q4H PRN (Reason: pain) Qty: 30 RF: 0 Discharge Orders: Discharge Order (Routine); Ordered 07/07/19 Ordered By: Fitz Dodd Admission Data Admit Date/Time: 07/03/19 16:03 Attending Provider: Fitz Dodd Admit Provider: Wilver Taylor Primary Care Provider: Norman Elizalde Other Providers: Wilver Taylor ; [facility] Other Interventions: Discharge Summary Assessment (RN) Last Done: 07/07/19 12:19 Coding Diagnoses Colitis K52.9 Abnormal finding of biliary tract R19.8 Constipation K59.09 Constipation type: other constipation type Parkinsonism G20 Parkinsonism type: unspecified Ambulatory dysfunction R26.2 Altered mental status R41.0 Altered mental status type: delirium Weak R53.1 Subdural hematoma S06.5X9A UTI (urinary tract infection) N39.0 Urinary tract infection type: site unspecified Hematuria presence: without hematuria Discharge planning issues Z02.9 DVT prophylaxis Z29.9
== END 2019-07-07 15:54 | DRG 690 ==
LOC: ED 08:53 → SUATTDRO 16:03 → 2N 16:03

== ENCOUNTER 2021-11-12 14:21 | Observation (INO) ==
[2021-11-12] MEDS ORDERED: ACETAMINOPHEN 500 MG TAB PO STA (15:18)
--- NOTE | 2021-11-12 15:22 | Emergency Department Note ---
History of Present Illness General Chief complaint: Fall Time Seen by Provider: 11/12/21 15:02 History of Present Illness Maximum Pain Intensity: 7 This is an 86-year-old female that presents to the emergency department accompanied by daughter with complaints of "fall, left elbow, left hip pain". The patient resides currently at [facility]. She notes that earlier, just prior to arrival she was ambulating and fell to the ground. She denies any syncope or chest pain preceding this. She feels that her legs gave out on her. Daughter at bedside notes this has happened before x 1, when she was a bit dehydrated. Patient denies any fevers, chills, headache, chest pain, shortness of breath, recent illness, or weakness. Patient notes pain currently to her left elbow. She is right-hand dominant. She also notes left hip pain. She is unsure if she struck her head but does not believe that she did. Current pain 12/15. No anticoagulant use. They believe the tetanus vaccine is up-to-date. Per review of the chart it appears that last tetanus vaccine was administered in 2017. Home Medications Medication Instructions Recorded Confirmed Type atenolol 25 mg tablet 12.5 mg PO DAILY 09/09/18 11/12/21 History multivitamin 1 tab PO DAILY 09/09/18 11/12/21 History simvastatin 40 mg tablet 40 mg PO QPM 09/09/18 11/12/21 History calcium carbonate 600 mg-vitamin 1 tab PO BID tab 03/22/19 11/12/21 History D3 5 mcg (200 unit) tablet acetaminophen 325 mg tablet (Mapap 650 mg PO BID PRN 11/12/21 11/12/21 History (acetaminophen)) carbidopa 25 mg-levodopa 250 mg 0.5 tab PO TID 11/12/21 11/12/21 History tablet docusate sodium 100 mg capsule 200 mg PO HS PRN 11/12/21 11/12/21 History (Colace) ferrous sulfate 325 mg (65 mg 325 mg PO DAILY 11/12/21 11/12/21 History iron) tablet hydroxychloroquine 200 mg tablet 200 mg PO DAILY 11/12/21 11/12/21 History pantoprazole 40 mg tablet,delayed 40 mg PO DAILY 11/12/21 11/12/21 History release polyethylene glycol 3350 17 gram 17 g PO DAILY PRN 11/12/21 11/12/21 History oral powder packet (Miralax) prednisone 10 mg tablet 10 mg PO DAILY 11/12/21 11/12/21 History sennosides 8.6 mg tablet (Senna 17.2 mg PO DAILY PRN 11/12/21 11/12/21 History Lax) tramadol 50 mg tablet 50 mg PO Q4H PRN 11/12/21 11/12/21 History Allergies Allergy/AdvReac Type Severity Reaction Status Date / Time No Known Allergies Allergy Unverified 11/12/21 17:27 Past Med/Surg History Medical History Borderline hypertension Fall GERD (gastroesophageal reflux disease) Hyperlipidemia Hypertension Inflammatory arthritis Parkinsonism Stroke Subdural hematoma TIA (transient ischemic attack) Surgical History No pertinent past surgical history Family History Other No significant past surgical history Social History Smoking Status: Never smoker Second Hand Exposure: No; Hx Alcohol Use: No Hx Substance Use: No Preferred Language: Croatian Communication Ability: Effective Conciliation Court Judge Required: No Beliefs That Will Affect Care: None marital status: / Current Living Situation: Alone How many Children do You have: 1 Feels Safe at Home: Yes Assistive Devices: Glasses and Walker Review of Systems A total of 10 systems reviewed and were otherwise negative Physical Exam Vital Signs Vital Signs - 24 hr 11/12/21 14:30 11/12/21 16:04 11/12/21 21:31 Temperature 36.7 C Temperature Source Oral Pulse Rate 73 Pulse Rate [Right Apical] 77 65 Pulse Rhythm [Right Apical] Regular Respiratory Rate 19 19 12 Respiratory Effort / Characteristics Non-Labored Non-Labored Respiratory Depth Normal Normal Normal Blood Pressure 142/76 H Blood Pressure [Right Arm] 144/77 H 145/68 H Blood Pressure Mean 98 Blood Pressure Mean [Right Arm] 99 93 Pulse Oximetry 99 98 98 Oxygen Delivery Method Room Air Room Air Room Air Sepsis Recent Fever Within 48 Hours No Sepsis New/Unexplained Change in Mental Status No Sepsis Action Taken by Nursing No Action Required VITAL SIGNS - Vital signs and nursing notes were reviewed. Mildly hypertensive, otherwise stable. GENERAL -86-year-old female appearing her stated age. Communicates well with provider and answers questions appropriately. SKIN - Gross examination of the entire body surface demonstrates mild abrasion to the left elbow region with underlying contusion. HEAD - Normocephalic, Atraumatic. No Rey's Sign or Raccoon's Eyes. No depressed skull fractures palpable. EYES - PERRL with EOMI bilaterally. Without subconjunctival hemorrhage. Palpebra l conjunctiva pink and moist with no injection. EARS - No deformities of external structures noted on gross examination bilaterally. No hemotympanum present. No tympanic perforation noted. Handle of m alleus, umbo, cone of light, pars tensa/flaccid all easily visualized. NOSE - Midline and without cyanosis. No epistaxis or clear watery discharge noted. Septum midline without deviation. No septal hematoma noted. No overlying ecchymosis noted. MOUTH/OROPHARYNX - Without perioral cyanosis. Tongue midline with equal elevation of palate bilaterally. No blood noted in the oropharynx. No tonsillar hypertrophy, erythema, or exudates noted. No dental fractures noted. NECK -no tenderness to palpation over the cervical spinous processes. No cervical paraspinal muscle tenderness noted. LUNGS - Chest wall symmetric without accessory muscle use, intercostals retractions, or central cyanosis. Normal vesicular breath sounds CTA B/L. No wheezes, rales, or rhonchi appreciated. CARDIAC - RRR EXTREMITIES - No gross deformities noted of the extremities. Contusion with point tenderness to the left elbow region and point TTP over the left proximal humerus/L shoulder noted and also TTP of the left lateral hip region. Otherwise no tenderness to palpation of the extremities. Full range of motion noted. Strength intact. +5/5 strength noted in UE/LE bilaterally. L radial pulse WNL. NEUROLOGIC - Cranial nerves II through XII grossly intact. PSYCH - A&Ox3 and cooperates fully with examiner. Pt is very pleasant and interacts well with examiner. Course Administered Medications Discontinued Medications Acetaminophen (Acetaminophen 500 Mg Tab) 500 mg PO NOW STA Stop: 11/12/21 15:19 Last Admin: 11/12/21 16:13 Dose: 500 mg Documented by: [id number] Oxycodone HCl (Oxycodone Hcl Ir 5 Mg Tab (Immediate Release)) 2.5 mg PO NOW STA Stop: 11/12/21 17:46 Last Admin: 11/12/21 17:55 Dose: 2.5 mg Documented by: [id number] Medical Decision Making Laboratory Data Result diagrams: 11/12/21 16:26 11/12/21 17:11 Lab Results 11/12/21 11/12/21 11/12/21 Range/Units 16:26 16:26 17:11 WBC 10.78 (4.8-10.8) K/uL RBC 3.97 L (4.2-5.4) M/uL Hgb 11.6 L (12.0-16.0) g/dL Hct 37.8 (37-47) % MCV 95.2 (80-100) fL MCH 29.2 (25-34) pg MCHC 30.7 L (32-36) g/dL RDW Std Deviation 51.3 H (36.4-46.3) fL RDW Coeff of Harmony 14.6 H (11.5-14.5) % Plt Count 399 (130-400) K/uL MPV 9.3 (7.4-10.4) fL Immature Gran % (Auto) 0.6 % Neut % (Auto) 82.2 % Lymph % (Auto) 9.9 % [place] % (Auto) 7.2 % Eos % (Auto) 0.0 % Baso % (Auto) 0.1 % Neut # (Auto) 8.85 H (1.4-6.5) K/uL Lymph # (Auto) 1.07 L (1.2-3.4) K/uL [place] # (Auto) 0.78 H (0.11-0.59) K/uL Eos # (Auto) 0.00 (0-0.5) K/uL Baso # (Auto) 0.01 (0-0.2) K/uL Immature Gran # (Auto) 0.07 H (0.00-0.02) K/uL Sodium Cancelled 139 Potassium Cancelled 4.0 Chloride Cancelled 103 Carbon Dioxide Cancelled 29 Anion Gap Cancelled 7 BUN Cancelled 18 Creatinine Cancelled 0.61 Est Cr Clr Drug Dosing Cancelled 64.3 Est GFR ( Amer) Cancelled 96.5 Est GFR (Non-Af Amer) Cancelled 83.2 BUN/Creatinine Ratio Cancelled 29.5 H Glucose Cancelled 158 H Calcium Cancelled 8.9 Total Bilirubin Cancelled 0.4 AST Cancelled 22 ALT Cancelled 14 Alkaline Phosphatase Cancelled 27 L Total Protein Cancelled 6.5 Albumin Cancelled 3.2 L Globulin Cancelled 3.3 Albumin/Globulin Ratio Cancelled 1.0 SARS-CoV-2, RNA, NAAT (NEGATIVE) 11/12/21 Range/Units 19:09 WBC (4.8-10.8) K/uL RBC (4.2-5.4) M/uL Hgb (12.0-16.0) g/dL Hct (37-47) % MCV (80-100) fL MCH (25-34) pg MCHC (32-36) g/dL RDW Std Deviation (36.4-46.3) fL RDW Coeff of Harmony (11.5-14.5) % Plt Count (130-400) K/uL MPV (7.4-10.4) fL Immature Gran % (Auto) % Neut % (Auto) % Lymph % (Auto) % [place] % (Auto) % Eos % (Auto) % Baso % (Auto) % Neut # (Auto) (1.4-6.5) K/uL Lymph # (Auto) (1.2-3.4) K/uL [place] # (Auto) (0.11-0.59) K/uL Eos # (Auto) (0-0.5) K/uL Baso # (Auto) (0-0.2) K/uL Immature Gran # (Auto) (0.00-0.02) K/uL Sodium Potassium Chloride Carbon Dioxide Anion Gap BUN Creatinine Est Cr Clr Drug Dosing Est GFR ( Amer) Est GFR (Non-Af Amer) BUN/Creatinine Ratio Glucose Calcium Total Bilirubin AST ALT Alkaline Phosphatase Total Protein Albumin Globulin Albumin/Globulin Ratio SARS-CoV-2, RNA, NAAT POSITIVE A* (NEGATIVE) Imaging Data Radiologist's Impression: Elbow X-Ray 11/12/21 15:18 XR elbow LT min 3V routine, XR forearm LT 2V CLINICAL HISTORY: Fall, L arm pain. COMPARISON STUDY: No previous studies for comparison. TECHNIQUE: AP and lateral left forearm and 3 left elbow views FINDINGS: Bones: Bones are osteopenic. There is no evidence for an acute fracture or dislocation. There is no lytic or blastic lesion. Joints: There is moderate narrowing of the elbow joint spaces. Gauge or fat pad The bones are in anatomic alignment. Soft tissues: There is no focal soft tissue abnormality. There is no radiopaque foreign body. IMPRESSION: 1. No acute osseous pathology. 2. 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 ACT 112: Negative or not required by law. Electronically signed by: Toby Guido M.D. 11/12/2021 5:[address] 11/12/21 15:18 CT SCAN OF THE BRAIN WITHOUT IV CONTRAST CLINICAL HISTORY: Fall. COMPARISON STUDY: CT of the brain dated 07/03/2019 TECHNIQUE: Unenhanced axial CT scan of the brain is performed from the vertex to the skull base. A dose lowering technique was utilized adhering to the p rinciples of ALA. CT DOSE: 1498.35 mGy.cm FINDINGS: Brain parenchyma: There is age-related involutional change noting moderate to advanced confluent subcortical and periventricular microangiopathic disease. There is no hemorrhage, mass effect, or evidence of acute territorial ischemia by CT criteria. Garcia-white matter differentiation is preserved. No extra-axial fluid collection is seen. Ventricles, sulci, cisterns: Prominent secondary to involutional change. Intracranial vasculature: There is atherosclerotic calcification of the cavernous carotid arteries. Calvarium: The skeletal structures are osteopenic. No depressed calvarial fra cture is identified. There is chronic posttraumatic deformity of the left zygomatic arch. Sinuses and mastoids: The visualized paranasal sinuses are clear. The mastoid air cells are well pneumatized. Orbits: The bony orbits are grossly intact. There are bilateral ocular lens implants. IMPRESSION: There is no hemorrhage, mass effect, or evidence of acute territorial ischemia by CT criteria. ACT 112: Negative or not required by law. Electronically signed by: Wilyl Kumar M.D. 11/12/2021 4:07 PM Humerus X-Ray 11/12/21 15:18 XR humerus LT 2V CLINICAL HISTORY: Fall, L arm pain. COMPARISON STUDY: No previous studies for comparison. TECHNIQUE: AP and lateral left humerus views FINDINGS: Bones: There is a displaced fracture present through the anatomic neck of the humerus with displacement of the humeral head posteriorly in relation to the humeral neck. However, the fracture margins are smooth and well-defined and the findings are most suspicious for an old fracture. Shoulder radiographs and cli nical correlation are recommended. The remainder the humeral shaft is intact. No other fractures are identified. There is no lytic or blastic lesion. Joints: There is narrowing of the glenohumeral joint. The remaining bones are in anatomic alignment. Soft tissues: There is no focal soft tissue abnormality. There is no radiopaque foreign body. IMPRESSION: 1. Radiographic findings most characteristic of an old fracture of the humeral neck as described above. Clinical correlation and follow-up are recommended. ACT 112: Negative or not required by law. Electronically signed by: Toby Guido M.D. 11/12/2021 4:58 PM Femur X-Ray 11/12/21 15:19 XR femur LT 2V routine HISTORY: 86 years-old Female Fall, L hip pain acute pain of the pelvis and left hip status post fall COMPARISON: Pelvis radiograph of same day TECHNIQUE: 2 views of the left femur FINDINGS: Demineralized appearance of the bones. Dystrophic subsegmental calcifications are noted lateral to the left hip joint. Moderate left hip osteoarthritis. No acute fracture, dislocation or avascular necrosis. Arterial calcifications. Trace left knee joint effusion. IMPRESSION: No acute fracture or dislocation. ACT 112: Negative or not required by law. The above report was generated using voice recognition software. It may contain grammatical, syntax or spelling errors. Electronically signed by: Sajan Correia M.D. 11/12/2021 5:09 PM Forearm X-Ray 11/12/21 15:19 XR elbow LT min 3V routine, XR forearm LT 2V CLINICAL HISTORY: Fall, L arm pain. COMPARISON STUDY: No previous studies for comparison. TECHNIQUE: AP and lateral left forearm and 3 left elbow views FINDINGS: Bones: Bones are osteopenic. There is no evidence for an acute fracture or dislocation. There is no lytic or blastic lesion. Joints: There is moderate narrowing of the elbow joint spaces. Gauge or fat pad The bones are in anatomic alignment. Soft tissues: There is no focal soft tissue abnormality. There is no radiopaque foreign body. IMPRESSION: 1. No acute osseous pathology. 2. 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 ACT 112: Negative or not required by law. Electronically signed by: Toby Guido M.D. 11/12/2021 5:00 PM Pelvis X-Ray 11/12/21 15:19 XR pelvis 1-2V routine CLINICAL HISTORY: Fall, L hip pain. COMPARISON STUDY: 05/11/2019 TECHNIQUE: [A single AP radiograph was obtained. FINDINGS: The bones are osteopenic. There is no evidence for an acute fracture. There is moderate to marked narrowing of the hip joints bilaterally, left greater than right. Secondary degenerative changes are present. The SI joints are obscured by overlying bowel gas and fecal material. The remaining visualized bones of the pelvis are intact. No focal soft tissue abnormalities identified. IMPRESSION: 1. No acute abnormality. 2. Osteopenia and osteoarthritis. ACT 112: Negative or not required by law. Electronically signed by: Toby Guido M.D. 11/12/2021 5:01 PM Shoulder X-Ray 11/12/21 17:45 XR shoulder LT min 2V routine HISTORY: 86 years-old Female Fall, L shoulder pain acute left shoulder pain status post fall COMPARISON: Left humerus radiographs of same day, acute abdominal series radiographs 07/07/2019 TECHNIQUE: 2 views of the left shoulder FINDINGS: There is an acute comminuted proximal humeral fracture which involves the anatomic neck, greater and also likely lesser tuberosities. There is approximately 1.5 cm of impaction with fracture fragments displaced posteriorly and laterally measuring up to 2.2 cm. Moderate associated soft tissue swelling with probable joint effusion. Moderate glenohumeral with moderate to severe AC joint osteoarthritis. IMPRESSION: Acute comminuted, impacted and displaced proximal left humeral fracture with moderate soft tissue swelling and probable joint effusion. ACT 112: Negative or not required by law. The above report was generated using voice recognition software. It may contain grammatical, syntax or spelling errors. Electronically signed by: Sajan Correia M.D. 11/12/2021 7:02 PM [facility] Narrative Patient was seen and evaluated as above in room C02. Review was performed of nursing notes and vital signs. I did review pertinent previous visits and patient history. After obtaining a thorough history and physical examination the above work up was performed. Patient presents to us today status post fall. After thorough discussion with the patient it appears that this was more of a mechanical fall. There does not appear to be any preceding illness symptoms, chest pain, shortness of breath, syncope, dizziness or strokelike symptoms. Her vital signs are stable on arrival. She clinically appears well and nontoxic. There are no deficits on examination. The patient is alert and oriented. GCS 15. Options of care were discussed with the patient and daughter at bedside. IV access was established. Labs were drawn. CT scan was obtained of the head. I will note that there are no signs of head trauma on examination but noting the unwitnessed ground-level fall this is felt to be warranted. There is no C-spine tenderness or neck pain. Patient does have a contusion/ abrasion to the left elbow region. Left upper extremity x-rays were obtained. She also has some left hip pain but is able to move the left lower extremity. X-rays of the pelvis/left femur were obtained. In regard to the left elbow contusion/abrasion with overlying superficial soft tissue skin tear I did recommend cleansing the wound. After obtaining consent I cleansed the area with sterile saline and Betadine. The area was then dried. Bacitracin nonstick dressing was applied. This was with good fit. X-ray results as above. The patient has what appears to be an abnormality of the proximal humerus. Dedicated shoulder x-rays were obtained. I suspect there is an acute left humeral neck fracture. Arm sling applied. The patient currently resides pretty much independently at the [facility]. I discussed options with the daughter at bedside. I called [facility] to see if it would be possible to allow her additional accommodations regarding her left shoulder injury as I do not believe that she would be safe to be by herself tonight. It was recommended to have the patient admitted here and then we will undergo PT/OT eval's to then reach out to the [facility] staff in the morning to figure out a plan of care. I believe this is reasonable. Case discussed with the hospitalist service. Patient and daughter are in agreement with this plan. Left arm sling with good fit. Please refer to further documentation regarding her stay. Patient did undergo COVID-19 testing prior to admission and was found to be positive. She seems to be asymptomatic at the present time. GCS: 15 In the evaluation and treatment of this patient the following differential diagnoses were entertained: CVA, TIA, strain, sprain, fracture, dislocation, subluxation, contusion, intracranial hemorrhage, among others Impression & Plan Fall, Closed fracture of left proximal humerus Discharge Plan Visit Data Chief Complaint: Fall ED Provider: Elmer Pagan ED Midlevel Provider: Brenden Tompkins Discharge Problem: Fall, Closed fracture of left proximal humerus Patient Disposition: Admitted As Inpatient Condition: Good Forms Stand Alone Forms: [facility] Prescriptions Prescriptions: No Action calcium carbonate-vitamin D3 600 mg(1,500mg) -200 unit tablet 1 tab PO BID RF: 0 multivitamin Tablet 1 tab PO DAILY RF: 0 atenolol 25 mg tablet 12.5 mg PO DAILY RF: 0 simvastatin 40 mg tablet 40 mg PO QPM RF: 0 sennosides [Senna Lax] 8.6 mg tablet 17.2 mg PO DAILY PRN (Reason: Constipation) RF: 0 acetaminophen [Mapap (acetaminophen)] 325 mg tablet 650 mg PO BID PRN (Reason: pain) RF: 0 polyethylene glycol 3350 [Miralax] 17 gram powder in packet 17 g PO DAILY PRN (Reason: Constipation) RF: 0 docusate sodium [Colace] 100 mg capsule 200 mg PO HS PRN (Reason: Constipation) RF: 0 prednisone 10 mg tablet 10 mg PO DAILY RF: 0 carbidopa-levodopa 25-250 mg tablet 0.5 tab PO TID RF: 0 tramadol 50 mg tablet 50 mg PO Q4H PRN (Reason: Pain) RF: 0 pantoprazole 40 mg tablet,delayed release (DR/EC) 40 mg PO DAILY RF: 0 ferrous sulfate 325 mg (65 mg iron) Tablet 325 mg PO DAILY RF: 0 hydroxychloroquine 200 mg tablet 200 mg PO DAILY RF: 0 Referrals Referrals: MAXWELL CORNELL RAMAN [Primary Care Provider] -
--- NOTE | 2021-11-12 16:09 | CT Scan Report ---
CT SCAN OF THE BRAIN WITHOUT IV CONTRAST CLINICAL HISTORY: Fall. COMPARISON STUDY: CT of the brain dated 07/03/2019 TECHNIQUE: Unenhanced axial CT scan of the brain is performed from the vertex to the skull base. A do se lowering technique was utilized adhering to the principles of ALARA. CT DOSE: 1498.35 mGy.cm FINDINGS: Brain parenchyma: There is age-related involutional change noting moderate to advanced confluent subc ortical and periventricular microangiopathic disease. There is no hemorrhage, mass effect, or evidenc e of acute territorial ischemia by CT criteria. Garcia-white matter differentiation is preserved. No ex tra-axial fluid collection is seen. Ventricles, sulci, cisterns: Prominent secondary to involutional change. Intracranial vasculature: There is atherosclerotic calcification of the cavernous carotid arteries. Calvarium: The skeletal structures are osteopenic. No depressed calvarial fracture is identified. The re is chronic posttraumatic deformity of the left zygomatic arch. Sinuses and mastoids: The visualized paranasal sinuses are clear. The mastoid air cells are well pneu matized. Orbits: The bony orbits are grossly intact. There are bilateral ocular lens implants. IMPRESSION: There is no hemorrhage, mass effect, or evidence of acute territorial ischemia by CT dee magana. ACT 112: Negative or not required by law. Electronically signed by: Willy Kumar M.D. 11/12/2021 4:07 PM
--- NOTE | 2021-11-12 17:00 | XRay Report ---
XR humerus LT 2V CLINICAL HISTORY: Fall, L arm pain. COMPARISON STUDY: No previous studies for comparison. TECHNIQUE: AP and lateral left humerus views FINDINGS: Bones: There is a displaced fracture present through the anatomic neck of the humerus with displaceme nt of the humeral head posteriorly in relation to the humeral neck. However, the fracture margins are smooth and well-defined and the findings are most suspicious for an old fracture. Shoulder radiograp hs and clinical correlation are recommended. The remainder the humeral shaft is intact. No other fractures are identified. There is no lytic or bl astic lesion. Joints: There is narrowing of the glenohumeral joint. The remaining bones are in anatomic alignment. Soft tissues: There is no focal soft tissue abnormality. There is no radiopaque foreign body. IMPRESSION: 1. Radiographic findings most characteristic of an old fracture of the humeral neck as described abov e. Clinical correlation and follow-up are recommended. ACT 112: Negative or not required by law. Electronically signed by: Toby Guido M.D. 11/12/2021 4:58 PM
--- NOTE | 2021-11-12 17:01 | XRay Report ---
XR elbow LT min 3V routine, XR forearm LT 2V CLINICAL HISTORY: Fall, L arm pain. COMPARISON STUDY: No previous studies for comparison. TECHNIQUE: AP and lateral left forearm and 3 left elbow views FINDINGS: Bones: Bones are osteopenic. There is no evidence for an acute fracture or dislocation. There is no l ytic or blastic lesion. Joints: There is moderate narrowing of the elbow joint spaces. Gauge or fat pad The bones are in jewel omic alignment. Soft tissues: There is no focal soft tissue abnormality. There is no radiopaque foreign body. IMPRESSION: 1. No acute osseous pathology. 2. 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 ACT 112: Negative or not required by law. Electronically signed by: Toby Guido M.D. 11/12/2021 5:00 PM
--- NOTE | 2021-11-12 17:03 | XRay Report ---
XR pelvis 1-2V routine CLINICAL HISTORY: Fall, L hip pain. COMPARISON STUDY: 05/11/2019 TECHNIQUE: [A single AP radiograph was obtained. FINDINGS: The bones are osteopenic. There is no evidence for an acute fracture. There is moderate to marked veronica rowing of the hip joints bilaterally, left greater than right. Secondary degenerative changes are pre sent. The SI joints are obscured by overlying bowel gas and fecal material. The remaining visualized bones of the pelvis are intact. No focal soft tissue abnormalities identified. IMPRESSION: 1. No acute abnormality. 2. Osteopenia and osteoarthritis. ACT 112: Negative or not required by law. Electronically signed by: Toby Guido M.D. 11/12/2021 5:01 PM
--- NOTE | 2021-11-12 17:10 | XRay Report ---
XR femur LT 2V routine HISTORY: 86 years-old Female Fall, L hip pain acute pain of the pelvis and left hip status post fall COMPARISON: Pelvis radiograph of same day TECHNIQUE: 2 views of the left femur FINDINGS: Demineralized appearance of the bones. Dystrophic subsegmental calcifications are noted lateral to th e left hip joint. Moderate left hip osteoarthritis. No acute fracture, dislocation or avascular necro sis. Arterial calcifications. Trace left knee joint effusion. IMPRESSION: No acute fracture or dislocation. ACT 112: Negative or not required by law. The above report was generated using voice recognition software. It may contain grammatical, syntax o r spelling errors. Electronically signed by: Sajan Correia M.D. 11/12/2021 5:09 PM
[2021-11-12] MEDS ORDERED: oxyCODONE HCL IR 5 MG TAB (IMMEDIATE RELEASE) PO STA (17:45)
[2021-11-12 17:53] LABS: Albumin Level 3.2 gm/dl (3.4-5.0); BUN Creatinine Ratio 29.5 (10-20); Bilirubin,Total 0.4 mg/dl (0.2-1.0); Calcium 8.9 mg/dl (8.5-10.1); Creatinine Clr Calc Pharmacy 64.3 ml/min; Est GFR (African American) 96.5 ml/min; Est GFR (Non-African American) 83.2 ml/min; Globulin 3.3 gm/dl (2.5-4.0); Total Protein 6.5 gm/dl (6.0-8.3)
[2021-11-12 17:56] LABS: Basophils # (auto) 0.01 K/uL (0-0.2); Basophils % (auto) 0.1 %; Hematocrit (blood only) 37.8 % (37-47); Hemoglobin 11.6 g/dL (12.0-16.0); Immature Granulocytes # (auto) 0.07 K/uL (0.00-0.02); Immature Granulocytes % (auto) 0.6 %; Lymphocytes # (auto) 1.07 K/uL (1.2-3.4); Lymphocytes % (auto) 9.9 %; Mean Corpuscular Hemoglobin 29.2 pg (25-34); Mean Corpuscular Hgb Conc 30.7 g/dL (32-36); Mean Corpuscular Volume 95.2 fL (80-100); Mean Platelet Volume 9.3 fL (7.4-10.4); Monocytes # (auto) 0.78 K/uL (0.11-0.59); Monocytes % (auto) 7.2 %; Neutrophils # (auto) 8.85 K/uL (1.4-6.5); Neutrophils % (auto) 82.2 %; Platelet Count 399 K/uL (130-400); RDW Coefficient of Variation 14.6 % (11.5-14.5); RDW Standard Deviation 51.3 fL (36.4-46.3); Red Blood Count 3.97 M/uL (4.2-5.4); White Blood Count 10.78 K/uL (4.8-10.8)
--- NOTE | 2021-11-12 19:04 | XRay Report ---
XR shoulder LT min 2V routine HISTORY: 86 years-old Female Fall, L shoulder pain acute left shoulder pain status post fall COMPARISON: Left humerus radiographs of same day, acute abdominal series radiographs 07/07/2019 TECHNIQUE: 2 views of the left shoulder FINDINGS: There is an acute comminuted proximal humeral fracture which involves the anatomic neck, greater and also likely lesser tuberosities. There is approximately 1.5 cm of impaction with fracture fragments d isplaced posteriorly and laterally measuring up to 2.2 cm. Moderate associated soft tissue swelling w ith probable joint effusion. Moderate glenohumeral with moderate to severe AC joint osteoarthritis. IMPRESSION: Acute comminuted, impacted and displaced proximal left humeral fracture with moderate sof t tissue swelling and probable joint effusion. ACT 112: Negative or not required by law. The above report was generated using voice recognition software. It may contain grammatical, syntax o r spelling errors. Electronically signed by: Sajan Correia M.D. 11/12/2021 7:02 PM
--- NOTE | 2021-11-12 20:21 | History & Physical Report ---
Date of Service November 12, 2021 Assessment & Plan (1) Closed left humeral fracture: Plan: Continue sling Acetaminophen 650 mg p.o. every 6 hours. Mild pain or fever Tramadol 50 mg p.o. every 4 hours as needed moderate pain Consult orthopedic surgery (2) Parkinsonism: Plan: Continue carbidopa/levodopa 0.5 tablet p.o. 3 times daily Patient does have shuffling gait, as reported by her daughter, and likely is contributing factor to her falls. (3) Fall: Plan: Patient has had previous falls in the past, noting to also have had a subdural hematoma in the past. CT of head was negative X-rays as noted reveal a closed left humeral fracture Consult PT/OT for general weakness (4) GERD (gastroesophageal reflux disease): Plan: Continue pantoprazole 40 mg daily Likely has a hiatal hernia noted on examination (5) Inflammatory arthritis: Plan: Continue hydroxychloroquine, prednisone, tramadol as needed (6) Hyperlipidemia: Plan: Continue simvastatin 40 mg in the evening (7) Hypertension: Plan: Continue atenolol 12.5 mg p.o. daily (8) IPMN (intraductal papillary mucinous neoplasm): Plan: Noted History of Present Illness Chief Complaint: The patient is brought to the emergency department accompanied by her daughter, with complaint of left elbow and shoulder pain after a fall. Primary Care Provider: [facility] The patient is an 86-year-old female with a past medical history including IPMN, degenerative disc disease, hypertension, previous falls, stroke, TIA, parkinsonism, iron deficiency, arthritis, GERD and hyperlipidemia. The patient was walking and fell to the ground just prior to arrival, landing on her left side, and developing immediate left elbow and shoulder pain. Her daughter reports that the patient reported that her legs just got weak, which is happened to her in the past, and she fell to the ground. She denies any head trauma or any other signs of illness. Her daughter reports that there has been COVID-19 mini epidemic at [facility], and is part of her work-up at [facility], the patient is COVID-19 positive without symptoms. X-rays performed noted a left humeral fracture. The patient did receive Tylenol in the ED with only minimally helped pain. She did receive oxycodone 2.5 mg, which helped the pain better, but her daughter reports it made her loopy Allergies Allergy/AdvReac Type Severity Reaction Status Date / Time No Known Allergies Allergy Unverified 11/12/21 17:27 Home Medications Medication Instructions Recorded Confirmed Type atenolol 25 mg tablet 12.5 mg PO DAILY 09/09/18 11/12/21 History multivitamin 1 tab PO DAILY 09/09/18 11/12/21 History simvastatin 40 mg tablet 40 mg PO QPM 09/09/18 11/12/21 History calcium carbonate 600 mg-vitamin 1 tab PO BID tab 03/22/19 11/12/21 History D3 5 mcg (200 unit) tablet acetaminophen 325 mg tablet (Mapap 650 mg PO BID PRN 11/12/21 11/12/21 History (acetaminophen)) carbidopa 25 mg-levodopa 250 mg 0.5 tab PO TID 11/12/21 11/12/21 History tablet docusate sodium 100 mg capsule 200 mg PO HS PRN 11/12/21 11/12/21 History (Colace) ferrous sulfate 325 mg (65 mg 325 mg PO DAILY 11/12/21 11/12/21 History iron) tablet hydroxychloroquine 200 mg tablet 200 mg PO DAILY 11/12/21 11/12/21 History pantoprazole 40 mg tablet,delayed 40 mg PO DAILY 11/12/21 11/12/21 History release polyethylene glycol 3350 17 gram 17 g PO DAILY PRN 11/12/21 11/12/21 History oral powder packet (Miralax) prednisone 10 mg tablet 10 mg PO DAILY 11/12/21 11/12/21 History sennosides 8.6 mg tablet (Senna 17.2 mg PO DAILY PRN 11/12/21 11/12/21 History Lax) tramadol 50 mg tablet 50 mg PO Q4H PRN 11/12/21 11/12/21 History Past Med/Surg History Medical History (Updated 11/12/21 @ 20:35 by Aly Souza MD) Borderline hypertension Fall GERD (gastroesophageal reflux disease) Hyperlipidemia Hypertension Inflammatory arthritis Parkinsonism Stroke Subdural hematoma TIA (transient ischemic attack) Surgical History No pertinent past surgical history Family History Other No significant past surgical history Social History Smoking Status: Never smoker Second Hand Exposure: No; Hx Alcohol Use: No Hx Substance Use: No Preferred Language: Romanian Communication Ability: Effective Measurer Required: No Beliefs That Will Affect Care: None marital status: / Current Living Situation: Alone How many Children do You have: 1 Feels Safe at Home: Yes Assistive Devices: Glasses and Walker Review of Systems Review of Systems: The patient denies chest pain, palpitations, shortness of breath, dyspnea on exertion, cough, lower extremity swelling, sore throat, fevers, chills, sweats, nausea, vomiting, diarrhea , constipation, abdominal pain, pelvic pain, blood in urine or stool, dysuria, urinary frequency or urgency, lightheadedness, dizziness, headache, memory loss, loss of consciousness, rash, abnormal bruising or bleeding, focal weakness, numbness or tingling in arms or legs, back or neck pain, or night sweats. The review of systems is otherwise negative other than for that already noted above, and at least 10 systems have been reviewed. Physical Exam Physical Exam: The patient is awake, alert and oriented 3, well developed and well nourished, normocephalic and atraumatic, lying in bed and in no acute distress. HEENT--PERRL, EOMI, mucous membranes and oropharynx normal. Neck--supple. No JVD. No bruits. Thyroid normal, trachea midline, no adenopathy. Heart--normal S1 and S2. No murmurs, rubs or gallops. Lungs--clear bilaterally, no respiratory distress, no accessory muscle use. Abdomen--normal bowel sounds and soft. Nontender. Nondistended, no hernias or masses, no organomegaly. Extremities--no cyanosis or clubbing. No edema. Dermatologic--normal skin turgor, normal color, no abnormal lymph nodes, no rash. Neurologic--cranial nerves II through XII grossly intact. Rheumatologic--limited exam due to left shoulder and arm pain Psychiatric--normal affect. Results & Data Results & Data ([facility]) Vital Signs (Past 12 Hours) Vital Signs Temp Pulse Pulse Resp BP BP Pulse Ox 11/12/21 16:04 77 19 144/77 H 98 11/12/21 14:30 36.7 C 73 19 142/76 H 99 Laboratory Results Laboratory Results WBC 10.78 K/uL (4.8-10.8) 11/12/21 16:26 RBC 3.97 M/uL (4.2-5.4) L 11/12/21 16:26 Hgb 11.6 g/dL (12.0-16.0) L 11/12/21 16:26 Hct 37.8 % (37-47) 11/12/21 16:26 MCV 95.2 fL (80-100) 11/12/21 16:26 MCH 29.2 pg (25-34) 11/12/21 16: MCHC 30.7 g/dL (32-36) L 11/12/21 16:26 RDW Std Deviation 51.3 fL (36.4-46.3) H 11/12/21 16:26 RDW Coeff of Harmony 14.6 % (11.5-14.5) H 11/12/21 16: Plt Count 399 K/uL (130-400) 11/12/21 16:26 MPV 9.3 fL (7.4-10.4) 11/12/21 16:26 Immature Gran % (Auto) 0.6 % 11/12/21 16:26 Neut % (Auto) 82.2 % 11/12/21 16:26 Lymph % (Auto) 9.9 % 11/12/21 16:26 [place] % (Auto) 7.2 % 11/12/21 16:26 Eos % (Auto) 0.0 % 11/12/21 16:26 Baso % (Auto) 0.1 % 11/12/21 16:26 Neut # (Auto) 8.85 K/uL (1.4-6.5) H 11/12/21 16:26 Lymph # (Auto) 1.07 K/uL (1.2-3.4) L 11/12/21 16:26 [place] # (Auto) 0.78 K/uL (0.11-0.59) H 11/12/21 16:26 Eos # (Auto) 0.00 K/uL (0-0.5) 11/12/21 16:26 Baso # (Auto) 0.01 K/uL (0-0.2) 11/12/21 16:26 Immature Gran # (Auto) 0.07 K/uL (0.00-0.02) H 11/12/21 16:26 Sodium 139 mmol/L (136-145) 11/12/21 17:11 Potassium 4.0 mmol/L (3.5-5.1) 11/12/21 17:11 Chloride 103 mmol/L (98-107) 11/12/21 17:11 Carbon Dioxide 29 mmol/L (21-32) 11/12/21 17:11 Anion Gap 7 (3-11) 11/12/21 17:11 BUN 18 mg/dl (6-23) 11/12/21 17:11 Creatinine 0.61 mg/dl (0.6-1.2) 11/12/21 17:11 Est Cr Clr Drug Dosing 64.3 ml/min 11/12/21 17:11 Est GFR ( Amer) 96.5 ml/min 11/12/21 17:11 Est GFR (Non-Af Amer) 83.2 ml/min 11/12/21 17:11 BUN/Creatinine Ratio 29.5 (10-20) H 11/12/21 17:11 Glucose 158 mg/dl (70-99(Fasting)) H 11/12/21 17:11 Calcium 8.9 mg/dl (8.5-10.1) 11/12/21 17:11 Total Bilirubin 0.4 mg/dl (0.2-1.0) 11/12/21 17:11 AST 22 U/L (13-39) 11/12/21 17:11 ALT 14 U/L (7-52) 11/12/21 17:11 Alkaline Phosphatase 27 U/L (34-104) L 11/12/21 17:11 Total Protein 6.5 gm/dl (6.0-8.3) 11/12/21 17:11 Albumin 3.2 gm/dl (3.4-5.0) L 11/12/21 17:11 Globulin 3.3 gm/dl (2.5-4.0) 11/12/21 17:11 Albumin/Globulin Ratio 1.0 (0.9-2) 11/12/21 17:11 SARS-CoV-2, RNA, NAAT POSITIVE (NEGATIVE) A* 11/12/21 19:09 Impressions Elbow X-Ray 11/12/21 15:18 XR elbow LT min 3V routine, XR forearm LT 2V CLINICAL HISTORY: Fall, L arm pain. COMPARISON STUDY: No previous studies for comparison. TECHNIQUE: AP and lateral left forearm and 3 left elbow views FINDINGS: Bones: Bones are osteopenic. There is no evidence for an acute fracture or dislocation. There is no lytic or blastic lesion. Joints: There is moderate narrowing of the elbow joint spaces. Gauge or fat pad The bones are in anatomic alignment. Soft tissues: There is no focal soft tissue abnormality. There is no radiopaque foreign body. IMPRESSION: 1. No acute osseous pathology. 2. 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 ACT 112: Negative or not required by law. Electronically signed by: Toby Guido M.D. 11/12/2021 5:[address] 11/12/21 15:18 CT SCAN OF THE BRAIN WITHOUT IV CONTRAST CLINICAL HISTORY: Fall. COMPARISON STUDY: CT of the brain dated 07/03/2019 TECHNIQUE: Unenhanced axial CT scan of the brain is performed from the vertex to the skull base. A dose lowering technique was utilized adhering to the principles of ALARA. CT DOSE: 1498.35 mGy.cm FINDINGS: Brain parenchyma: There is age-related involutional change noting moderate to advanced confluent subcortical and periventricular microangiopathic disease. There is no hemorrhage, mass effect, or evidence of acute territorial ischemia by CT criteria. Garcia-white matter differentiation is preserved. No extra-axial fluid collection is seen. Ventricles, sulci, cisterns: Prominent secondary to involutional change. Intracranial vasculature: There is atherosclerotic calcification of the cavernous carotid arteries. Calvarium: The skeletal structures are osteopenic. No depressed calvarial fracture is identified. There is chronic posttraumatic deformity of the left zygomatic arch. Sinuses and mastoids: The visualized paranasal sinuses are clear. The mastoid air cells are well pneumatized. Orbits: The bony orbits are grossly intact. There are bilateral ocular lens implants. IMPRESSION: There is no hemorrhage, mass effect, or evidence of acute territorial ischemia by CT criteria. ACT 112: Negative or not required by law. Electronically signed by: Willy Kumar M.D. 11/12/2021 4:07 PM Humerus X-Ray 11/12/21 15:18 XR humerus LT 2V CLINICAL HISTORY: Fall, L arm pain. COMPARISON STUDY: No previous studies for comparison. TECHNIQUE: AP and lateral left humerus views FINDINGS: Bones: There is a displaced fracture present through the anatomic neck of the humerus with displacement of the humeral head posteriorly in relation to the humeral neck. However, the fracture margins are smooth and well-defined and the findings are most suspicious for an old fracture. Shoulder radiographs and clinical correlation are recommended. The remainder the humeral shaft is intact. No other fractures are identified. There is no lytic or blastic lesion. Joints: There is narrowing of the glenohumeral joint. The remaining bones are in anatomic alignment. Soft tissues: There is no focal soft tissue abnormality. There is no radiopaque foreign body. IMPRESSION: 1. Radiographic findings most characteristic of an old fracture of the humeral neck as described above. Clinical correlation and follow-up are recommended. ACT 112: Negative or not required by law. Electronically signed by: Toby Guido M.D. 11/12/2021 4:58 PM Femur X-Ray 11/12/21 15:19 XR femur LT 2V routine HISTORY: 86 years-old Female Fall, L hip pain acute pain of the pelvis and left hip status post fall COMPARISON: Pelvis radiograph of same day TECHNIQUE: 2 views of the left femur FINDINGS: Demineralized appearance of the bones. Dystrophic subsegmental calcifications are noted lateral to the left hip joint. Moderate left hip osteoarthritis. No acute fracture, dislocation or avascular necrosis. Arterial calcifications. Trace left knee joint effusion. IMPRESSION: No acute fracture or dislocation. ACT 112: Negative or not required by law. The above report was generated using voice recognition software. It may contain grammatical, syntax or spelling errors. Electronically signed by: Sajan Correia M.D. 11/12/2021 5:09 PM Forearm X-Ray 11/12/21 15:19 XR elbow LT min 3V routine, XR forearm LT 2V CLINICAL HISTORY: Fall, L arm pain. COMPARISON STUDY: No previous studies for comparison. TECHNIQUE: AP and lateral left forearm and 3 left elbow views FINDINGS: Bones: Bones are osteopenic. There is no evidence for an acute fracture or dislocation. There is no lytic or blastic lesion. Joints: There is moderate narrowing of the elbow joint spaces. Gauge or fat pad The bones are in anatomic alignment. Soft tissues: There is no focal soft tissue abnormality. There is no radiopaque foreign body. IMPRESSION: 1. No acute osseous pathology. 2. 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 ACT 112: Negative or not required by law. Electronically signed by: Toby Guido M.D. 11/12/2021 5:00 PM Pelvis X-Ray 11/12/21 15:19 XR pelvis 1-2V routine CLINICAL HISTORY: Fall, L hip pain. COMPARISON STUDY: 05/11/2019 TECHNIQUE: [A single AP radiograph was obtained. FINDINGS: The bones are osteopenic. There is no evidence for an acute fracture. There is moderate to marked narrowing of the hip joints bilaterally, left greater than right. Secondary degenerative changes are present. The SI joints are obscured by overlying bowel gas and fecal material. The remaining visualized bones of the pelvis are intact. No focal soft tissue abnormalities identified. IMPRESSION: 1. No acute abnormality. 2. Osteopenia and osteoarthritis. ACT 112: Negative or not required by law. Electronically signed by: Toby Guido M.D. 11/12/2021 5:01 PM Shoulder X-Ray 11/12/21 17:45 XR shoulder LT min 2V routine HISTORY: 86 years-old Female Fall, L shoulder pain acute left shoulder pain status post fall COMPARISON: Left humerus radiographs of same day, acute abdominal series radiographs 07/07/2019 TECHNIQUE: 2 views of the left shoulder FINDINGS: There is an acute comminuted proximal humeral fracture which involves the anatomic neck, greater and also likely lesser tuberosities. There is approximately 1.5 cm of impaction with fracture fragments displaced posteriorly and laterally measuring up to 2.2 cm. Moderate associated soft tissue swelling with probable joint effusion. Moderate glenohumeral with moderate to severe AC joint osteoarthritis. IMPRESSION: Acute comminuted, impacted and displaced proximal left humeral fracture with moderate soft tissue swelling and probable joint effusion. ACT 112: Negative or not required by law. The above report was generated using voice recognition software. It may contain grammatical, syntax or spelling errors. Electronically signed by: Sajan Correia M.D. 11/12/2021 7:02 PM Code Status & VTE Plan Code Status Full code VTE Prophylaxis Plan VTE Prophylaxis will be ordered: Yes PG Care Time/CCT Total # of Minutes Spent Total Time Spent with Patient: Total time spent is greater than 50% in coordination of care (as documented) at patient's floor/unit and/or counseling patient: Coding Level of Care Code INT OBSERVATION CARE 70M LVL 3 Diagnoses Closed left humeral fracture S42.302A IPMN (intraductal papillary mucinous neoplasm) D49.0 Parkinsonism G20 Fall W19.XXXA GERD (gastroesophageal reflux disease) K21.9 Inflammatory arthritis M19.90 Hyperlipidemia E78.5 Hypertension I10
[2021-11-12] MEDS ORDERED: SENNA 8.6 MG TAB PO PRN (22:45)
[2021-11-12] MEDS ORDERED: DOCUSATE SODIUM 100 MG CAP PO PRN (22:45)
[2021-11-12] MEDS ORDERED: POLYETHYLENE (MIRALAX) 17 GM PACK PO PRN (22:45)
[2021-11-12] MEDS ORDERED: traMADol HCL 50 MG TABLET PO PRN (22:45)
[2021-11-12] MEDS ORDERED: ONDANSETRON INJ 2 MG/ML 2 ML VIAL IV PRN (22:45)
[2021-11-12] MEDS ORDERED: ACETAMINOPHEN 325 MG TAB PO PRN (22:45)
[2021-11-13] MEDS: CARBIDOPA/LEVODOPA 25-250 1 EA TAB PO SCH ×4 (00:17→23:40)
[2021-11-13] MEDS: CALCIUM 600MG + VIT D 400 IU TAB PO SCH ×3 (00:17→23:40)
[2021-11-13] MEDS: SIMVASTATIN 40 MG TAB PO SCH ×2 (00:18→23:39)
[2021-11-13] MEDS: FERROUS SULFATE 325 MG TAB PO SCH (05:04)
--- NOTE | 2021-11-13 08:30 | Hospitalist Progress Note ---
Date of Service November 13, 2021 Assessment & Plan (1) Fall: (2) Closed fracture of left proximal humerus: (3) Hypertension: (4) Hyperlipidemia: (5) Inflammatory arthritis: (6) Parkinsonism: (7) GERD (gastroesophageal reflux disease): Plan: 86 year old female w/ past medical history of IPMN, degenerative disc disease, hypertension, previous falls, stroke, TIA, parkinsonism, iron deficiency, arthritis, GERD and hyperlipidemia admitted for recent fall. Closed left humeral fracture/Fall: -s/p fall -XR humerus displaced fracture present through the anatomic neck of the humerus with displacement of the humeral head posteriorly in relation to the humeral neck. -XR L shoulder Acute comminuted, impacted and displaced proximal left humeral fracture with moderate soft tissue swelling and probable joint effusion -CT head w/o acute abnormality. -Deconditioning vs COVID fatigue -Orthopedics consulted -Continue sling for now, apply ice to left shoulder. -Continue acetaminophen 650mg q6h, tramadol 50mg q4h. -PT/OT eval. COVID-19: -Patient COVID+ upon admission. -Patient hemodynamically stable, no O2 requirement. -No need for COVID treatment at this time. -Continue to monitor vitals. Parkinsonism: -Continue carbidopa/levodopa 0.5 tablet p.o. 3 times daily -Shuffling gait may contribute to falls. GERD: -Continue pantoprazole 40 mg daily Inflammatory Arthritis: -Continue hydroxychloroquine, prednisone, tramadol as needed Hyperlipidemia: -Continue simvastatin 40 mg in the evening Hypertension: -Continue atenolol 12.5 mg p.o. daily DVT Prophylaxis: Lovenox daily F/E/N/GI: Heart Healthy Code status: Full code Dispo: Med/Surg Admission and Anticipated Discharge Date Admission Date: November 12, 2021 Supervising Physician Co-Signing Physician Notes I personally examined the patient and verified all sweeney points of history and exam, discussed case, and agree with decision making with Dr Castaneda feeling OK except tylneol doesn't help arm pain quite enough vitals ntoed nad heent nc at mmm L arm in sling no focal neuro deficits skin no rashes no pallor or icterus fall/weakness - deconditioning vs covid mediated fatigue vs both. PT/OT eval and treat - hopefully will be able to return to [facility] (vs needing rehab first) covid - other than possibly fatigue/weakness - asymptomatic humerus fracture - add ibuprofen for pain control. sling. dvt proph - lovenox otherwise as above Subjective Patient seen at the bedside this morning. Patient stated she is having some pain with her shoulder and her elbow but not excruciating. She denies any shortness of breath, chest pain, fevers, chills. She states she has fallen about 3 times in the past year. She lost her balance when turning around to sit down. Review of Systems Constitutional: as per Subjective / HPI Physical Exam Constitutional: WD/WN, vitals as above Eyes: PERRL, conjunctivae normal, anicteric sclerae Respiratory: normal respiratory effort, lungs clear to auscultation Cardiovascular: RRR, no murmur, no edema Gastrointestinal (Abdomen): normal bowel sounds, soft, nontender, no hepatosplenomegaly Psychiatric: A+Ox3, euthymic affect Results & Data Results & Data ([facility]) Vital Signs (Past 12 Hours) Vital Signs Temp Pulse Resp BP Pulse Ox 11/12/21 22:54 36.5 C 80 18 183/80 H 97 11/12/21 21:31 65 12 145/68 H 98 Resident Activity Tracking Resident Involvement: Resident Care Provided Care Provided: Adult Hospital Medicine
[2021-11-13] MEDS: MULTIVITAMIN TAB PO SCH (09:32)
[2021-11-13] MEDS: predniSONE 10 MG TABLET PO SCH (09:32)
[2021-11-13] MEDS: PANTOprazole 40 MG TAB PO SCH (09:32)
[2021-11-13] MEDS: HYDROXYCHLOROQUINE SULFATE 200 MG TAB PO SCH (09:32)
[2021-11-13] MEDS: ATENOLOL 25 MG TABLET PO SCH (09:32)
[2021-11-13] MEDS: ACETAMINOPHEN 325 MG TAB PO PRN (09:36)
--- NOTE | 2021-11-13 13:02 | Orthopedic Consultation ---
Date of Consultation November 13, 2021 Assessment & Plan (1) Closed fracture of left proximal humerus: Left displaced, impacted proximal humerus fracture. Continue sling for now. Ice to the left shoulder. Continue current pain regimen. No range of motion of the left shoulder at this time. Sling may be adjusted to accommodate for stiffness in her left elbow and/or wrist. Dr. Herrera will review the films and make final decisions for her care. History of Present Illness Reason for Consultation: Left proximal humerus fracture Attending Physician: Aldair Howe DO History of Present Illness The patient is an 86-year-old female with a past medical history including IPMN, degenerative disc disease, hypertension, previous falls, stroke, TIA, parkinsonism, iron deficiency, arthritis, GERD and hyperlipidemia. Patient was noted to be COVID-positive during her admission. She resides at [facility] where apparently there has been an increase in their COVID cases. Patient was notably asymptomatic. Patient is currently awake and alert. She is somewhat confused on when she fell. From the history the patient has had multiple falls over the past. This is been felt secondary to her parkinsonism. During this time prior to her admission, patient states that when she was walking, her legs became weak and went out from under her. She fell onto her left side. She was having pain in her left shoulder and elbow and was brought to the emergency room. She was seen by the staff multiple x-rays were taken and was found that she had a left proximal humerus fracture. She was placed in a sling and was admitted for further care. Allergies Allergy/AdvReac Type Severity Reaction Status Date / Time No Known Allergies Allergy Unverified 11/12/21 17:27 Home Medications Medication Instructions Recorded Confirmed Type atenolol 25 mg tablet 12.5 mg PO DAILY 09/09/18 11/12/21 History multivitamin 1 tab PO DAILY 09/09/18 11/12/21 History simvastatin 40 mg tablet 40 mg PO QPM 09/09/18 11/12/21 History calcium carbonate 600 mg-vitamin 1 tab PO BID tab 03/22/19 11/12/21 History D3 5 mcg (200 unit) tablet acetaminophen 325 mg tablet (Mapap 650 mg PO BID PRN 11/12/21 11/12/21 History (acetaminophen)) carbidopa 25 mg-levodopa 250 mg 0.5 tab PO TID 11/12/21 11/12/21 History tablet docusate sodium 100 mg capsule 200 mg PO HS PRN 11/12/21 11/12/21 History (Colace) ferrous sulfate 325 mg (65 mg 325 mg PO DAILY 11/12/21 11/12/21 History iron) tablet hydroxychloroquine 200 mg tablet 200 mg PO DAILY 11/12/21 11/12/21 History pantoprazole 40 mg tablet,delayed 40 mg PO DAILY 11/12/21 11/12/21 History release polyethylene glycol 3350 17 gram 17 g PO DAILY PRN 11/12/21 11/12/21 History oral powder packet (Miralax) prednisone 10 mg tablet 10 mg PO DAILY 11/12/21 11/12/21 History sennosides 8.6 mg tablet (Senna 17.2 mg PO DAILY PRN 11/12/21 11/12/21 History Lax) tramadol 50 mg tablet 50 mg PO Q4H PRN 11/12/21 11/12/21 History Patient History Medical History Borderline hypertension Fall GERD (gastroesophageal reflux disease) Hyperlipidemia Hypertension Inflammatory arthritis Parkinsonism Stroke Subdural hematoma TIA (transient ischemic attack) Surgical History No pertinent past surgical history Family History Other No significant past surgical history Social History Smoking Status: Never smoker Second Hand Exposure: No; Hx Alcohol Use: No Hx Substance Use: No Preferred Language: [place] Communication Ability: Impaired Try On Baster Required: No Beliefs That Will Affect Care: None marital status: / Current Living Situation: Personal Care Facility How many Children do You have: 1 Feels Safe at Home: Yes Assistive Devices: Walker Physical Exam Physical Exam: Patient is a 86-year-old white female who appears her stated age. She is pleasant and cooperative, no acute distress, she is oriented to person and knows that she is in the hospital. On examination of her left upper extremity, she is in a sling which is left in place. She has good range of motion of her left wrist and fingers. She has some mild swelling into her fingers. She states that her sensation is intact and she has good range of motion of the fingers at this time. No pain in the wrist on palpation. She has some mild discomfort on palpation of the left elbow and I am able to take her through very gentle range of motion of the left elbow with minimal discomfort. Left shoulder has some mild swelling noted but no overt ecchymosis. She is tender on palpation. No attempts were made to take the left shoulder through range of motion secondary to fracture. Results & Data ([facility]) Vital Signs (Past 12 Hours) Vital Signs Temp Pulse Resp BP Pulse Ox 11/13/21 08:50 36.6 C 91 H 16 145/72 H 98 Laboratory Results Laboratory Results WBC 10.78 K/uL (4.8-10.8) 11/12/21 16:26 RBC 3.97 M/uL (4.2-5.4) L 11/12/21 16:26 Hgb 11.6 g/dL (12.0-16.0) L 11/12/21 16:26 Hct 37.8 % (37-47) 11/12/21 16:26 MCV 95.2 fL (80-100) 11/12/21 16:26 MCH 29.2 pg (25-34) 11/12/21 16:26 MCHC 30.7 g/dL (32-36) L 11/12/21 16:26 RDW Std Deviation 51.3 fL (36.4-46.3) H 11/12/21 16:26 RDW Coeff of Harmony 14.6 % (11.5-14.5) H 11/12/21 16:26 Plt Count 399 K/uL (130-400) 11/12/21 16:26 MPV 9.3 fL (7.4-10.4) 11/12/21 16:26 Immature Gran % (Auto) 0.6 % 11/12/21 16:26 Neut % (Auto) 82.2 % 11/12/21 16:26 Lymph % (Auto) 9.9 % 11/12/21 16:26 [place] % (Auto) 7.2 % 11/12/21 16:26 Eos % (Auto) 0.0 % 11/12/21 16:26 Baso % (Auto) 0.1 % 11/12/21 16: Neut # (Auto) 8.85 K/uL (1.4-6.5) H 11/12/21 16: Lymph # (Auto) 1.07 K/uL (1.2-3.4) L 11/12/21 16:26 [place] # (Auto) 0.78 K/uL (0.11-0.59) H 11/12/21 16: Eos # (Auto) 0.00 K/uL (0-0.5) 11/12/21 16: Baso # (Auto) 0.01 K/uL (0-0.2) 11/12/21 16: Immature Gran # (Auto) 0.07 K/uL (0.00-0.02) H 11/12/21 16:26 Sodium 139 mmol/L (136-145) 11/12/21 17:11 Potassium 4.0 mmol/L (3.5-5.1) 11/12/21 17:11 Chloride 103 mmol/L (98-107) 11/12/21 17:11 Carbon Dioxide 29 mmol/L (21-32) 11/12/21 17:11 Anion Gap 7 (3-11) 11/12/21 17:11 BUN 18 mg/dl (6-23) 11/12/21 17:11 Creatinine 0.61 mg/dl (0.6-1.2) 11/12/21 17:11 Est Cr Clr Drug Dosing 64.3 ml/min 11/12/21 17:11 Est GFR ( Amer) 96.5 ml/min 11/12/21 17:11 Est GFR (Non-Af Amer) 83.2 ml/min 11/12/21 17:11 BUN/Creatinine Ratio 29.5 (10-20) H 11/12/21 17:11 Glucose 158 mg/dl (70-99(Fasting)) H 11/12/21 17:11 Calcium 8.9 mg/dl (8.5-10.1) 11/12/21 17:11 Total Bilirubin 0.4 mg/dl (0.2-1.0) 11/12/21 17:11 AST 22 U/L (13-39) 11/12/21 17:11 ALT 14 U/L (7-52) 11/12/21 17:11 Alkaline Phosphatase 27 U/L (34-104) L 11/12/21 17:11 Total Protein 6.5 gm/dl (6.0-8.3) 11/12/21 17:11 Albumin 3.2 gm/dl (3.4-5.0) L 11/12/21 17:11 Globulin 3.3 gm/dl (2.5-4.0) 11/12/21 17:11 Albumin/Globulin Ratio 1.0 (0.9-2) 11/12/21 17:11 SARS-CoV-2, RNA, NAAT POSITIVE (NEGATIVE) A* 11/12/21 19:09 Impressions Elbow X-Ray 11/12/21 15:18 XR elbow LT min 3V routine, XR forearm LT 2V CLINICAL HISTORY: Fall, L arm pain. COMPARISON STUDY: No previous studies for comparison. TECHNIQUE: AP and lateral left forearm and 3 left elbow views FINDINGS: Bones: Bones are osteopenic. There is no evidence for an acute fracture or dislocation. There is no lytic or blastic lesion. Joints: There is moderate narrowing of the elbow joint spaces. Gauge or fat pad The bones are in anatomic alignment. Soft tissues: There is no focal soft tissue abnormality. There is no radiopaque foreign body. IMPRESSION: 1. No acute osseous pathology. 2. 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 ACT 112: Negative or not required by law. Electronically signed by: Toby Guido M.D. 11/12/2021 5:[address] 11/12/21 15:18 CT SCAN OF THE BRAIN WITHOUT IV CONTRAST CLINICAL HISTORY: Fall. COMPARISON STUDY: CT of the brain dated 07/03/2019 TECHNIQUE: Unenhanced axial CT scan of the brain is performed from the vertex to the skull base. A dose lowering technique was utilized adhering to the principles of ALARA. CT DOSE: 1498.35 mGy.cm FINDINGS: Brain parenchyma: There is age-related involutional change noting moderate to advanced confluent subcortical and periventricular microangiopathic disease. There is no hemorrhage, mass effect, or evidence of acute territorial ischemia by CT criteria. Garcia-white matter differentiation is preserved. No extra-axial fluid collection is seen. Ventricles, sulci, cisterns: Prominent secondary to involutional change. Intracranial vasculature: There is atherosclerotic calcification of the cavernous carotid arteries. Calvarium: The skeletal structures are osteopenic. No depressed calvarial fracture is identified. There is chronic posttraumatic deformity of the left zygomatic arch. Sinuses and mastoids: The visualized paranasal sinuses are clear. The mastoid air cells are well pneumatized. Orbits: The bony orbits are grossly intact. There are bilateral ocular lens implants. IMPRESSION: There is no hemorrhage, mass effect, or evidence of acute territorial ischemia by CT criteria. ACT 112: Negative or not required by law. Electronically signed by: Willy Kumar M.D. 11/12/2021 4:07 PM Humerus X-Ray 11/12/21 15:18 XR humerus LT 2V CLINICAL HISTORY: Fall, L arm pain. COMPARISON STUDY: No previous studies for comparison. TECHNIQUE: AP and lateral left humerus views FINDINGS: Bones: There is a displaced fracture present through the anatomic neck of the humerus with displacement of the humeral head posteriorly in relation to the humeral neck. However, the fracture margins are smooth and well-defined and the findings are most suspicious for an old fracture. Shoulder radiographs and clinical correlation are recommended. The remainder the humeral shaft is intact. No other fractures are identified. There is no lytic or blastic lesion. Joints: There is narrowing of the glenohumeral joint. The remaining bones are in anatomic alignment. Soft tissues: There is no focal soft tissue abnormality. There is no radiopaque foreign body. IMPRESSION: 1. Radiographic findings most characteristic of an old fracture of the humeral neck as described above. Clinical correlation and follow-up are recommended. ACT 112: Negative or not required by law. Electronically signed by: Toby Guido M.D. 11/12/2021 4:58 PM Femur X-Ray 11/12/21 15:19 XR femur LT 2V routine HISTORY: 86 years-old Female Fall, L hip pain acute pain of the pelvis and left hip status post fall COMPARISON: Pelvis radiograph of same day TECHNIQUE: 2 views of the left femur FINDINGS: Demineralized appearance of the bones. Dystrophic subsegmental calcifications are noted lateral to the left hip joint. Moderate left hip osteoarthritis. No acute fracture, dislocation or avascular necrosis. Arterial calcifications. Trace left knee joint effusion. IMPRESSION: No acute fracture or dislocation. ACT 112: Negative or not required by law. The above report was generated using voice recognition software. It may contain grammatical, syntax or spelling errors. Electronically signed by: Sajan Correia M.D. 11/12/2021 5:09 PM Forearm X-Ray 11/12/21 15:19 XR elbow LT min 3V routine, XR forearm LT 2V CLINICAL HISTORY: Fall, L arm pain. COMPARISON STUDY: No previous studies for comparison. TECHNIQUE: AP and lateral left forearm and 3 left elbow views FINDINGS: Bones: Bones are osteopenic. There is no evidence for an acute fracture or dislocation. There is no lytic or blastic lesion. Joints: There is moderate narrowing of the elbow joint spaces. Gauge or fat pad The bones are in anatomic alignment. Soft tissues: There is no focal soft tissue abnormality. There is no radiopaque foreign body. IMPRESSION: 1. No acute osseous pathology. 2. 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 ACT 112: Negative or not required by law. Electronically signed by: Toby Guido M.D. 11/12/2021 5:00 PM Pelvis X-Ray 11/12/21 15:19 XR pelvis 1-2V routine CLINICAL HISTORY: Fall, L hip pain. COMPARISON STUDY: 05/11/2019 TECHNIQUE: [A single AP radiograph was obtained. FINDINGS: The bones are osteopenic. There is no evidence for an acute fracture. There is moderate to marked narrowing of the hip joints bilaterally, left greater than right. Secondary degenerative changes are present. The SI joints are obscured by overlying bowel gas and fecal material. The remaining visualized bones of the pelvis are intact. No focal soft tissue abnormalities identified. IMPRESSION: 1. No acute abnormality. 2. Osteopenia and osteoarthritis. ACT 112: Negative or not required by law. Electronically signed by: Toby Guido M.D. 11/12/2021 5:01 PM Shoulder X-Ray 11/12/21 17:45 XR shoulder LT min 2V routine HISTORY: 86 years-old Female Fall, L shoulder pain acute left shoulder pain status post fall COMPARISON: Left humerus radiographs of same day, acute abdominal series radiographs 07/07/2019 TECHNIQUE: 2 views of the left shoulder FINDINGS: There is an acute comminuted proximal humeral fracture which involves the anatomic neck, greater and also likely lesser tuberosities. There is approximately 1.5 cm of impaction with fracture fragments displaced posteriorly and laterally measuring up to 2.2 cm. Moderate associated soft tissue swelling with probable joint effusion. Moderate glenohumeral with moderate to severe AC joint osteoarthritis. IMPRESSION: Acute comminuted, impacted and displaced proximal left humeral fracture with moderate soft tissue swelling and probable joint effusion. ACT 112: Negative or not required by law. The above report was generated using voice recognition software. It may contain grammatical, syntax or spelling errors. Electronically signed by: Sajan Correia M.D. 11/12/2021 7:02 PM
[2021-11-13] MEDS ORDERED: IBUPROFEN 200 MG TAB PO PRN (14:14)
--- NOTE | 2021-11-13 16:44 | Billing Data ---
Date of Service November 13, 2021 Coding Level of Care Code 83347 Subseq Obs Care Lvl 2
[2021-11-14] MEDS: FERROUS SULFATE 325 MG TAB PO SCH (06:24)
[2021-11-14] MEDS: ACETAMINOPHEN 325 MG TAB PO PRN (08:44)
[2021-11-14] MEDS: HYDROXYCHLOROQUINE SULFATE 200 MG TAB PO SCH (08:55)
[2021-11-14] MEDS: PANTOprazole 40 MG TAB PO SCH (08:55)
[2021-11-14] MEDS: MULTIVITAMIN TAB PO SCH (08:55)
[2021-11-14] MEDS: CARBIDOPA/LEVODOPA 25-250 1 EA TAB PO SCH ×2 (08:56→13:48)
[2021-11-14] MEDS: ATENOLOL 25 MG TABLET PO SCH (08:56)
[2021-11-14] MEDS: predniSONE 10 MG TABLET PO SCH (08:56)
[2021-11-14] MEDS ORDERED: ENOXAPARIN INJ 40 MG/0.4 ML SYR SQ SCH (09:00)
[2021-11-14] MEDS: CALCIUM 600MG + VIT D 400 IU TAB PO SCH (09:24)
--- NOTE | 2021-11-14 10:37 | Hospitalist Progress Note ---
Date of Service November 14, 2021 Assessment & Plan (1) Fall: (2) Closed fracture of left proximal humerus: (3) Hypertension: (4) Hyperlipidemia: (5) Inflammatory arthritis: (6) Parkinsonism: (7) GERD (gastroesophageal reflux disease): Plan: 86 year old female w/ past medical history of IPMN, degenerative disc disease, hypertension, previous falls, stroke, TIA, parkinsonism, iron deficiency, arthritis, GERD and hyperlipidemia admitted for recent fall. Closed left humeral fracture/Fall: -s/p fall -XR humerus displaced fracture present through the anatomic neck of the humerus with displacement of the humeral head posteriorly in relation to the humeral neck. -XR L shoulder Acute comminuted, impacted and displaced proximal left humeral fracture with moderate soft tissue swelling and probable joint effusion -CT head w/o acute abnormality. -Deconditioning vs COVID fatigue -Orthopedics consulted -Continue sling for now, apply ice to left shoulder. -Continue acetaminophen 650mg q6h, tramadol 50mg q4h. -PT/OT eval. COVID-19: -Patient COVID+ upon admission. -Patient hemodynamically stable, no O2 requirement. -No need for COVID treatment at this time. -Continue to monitor vitals. Parkinsonism: -Continue carbidopa/levodopa 0.5 tablet p.o. 3 times daily -Shuffling gait may contribute to falls. GERD: -Continue pantoprazole 40 mg daily Inflammatory Arthritis: -Continue hydroxychloroquine, prednisone, tramadol as needed Hyperlipidemia: -Continue simvastatin 40 mg in the evening Hypertension: -Continue atenolol 12.5 mg p.o. daily DVT Prophylaxis: Lovenox daily F/E/N/GI: Heart Healthy Code status: Full code Dispo: Med/Surg Admission and Anticipated Discharge Date Admission Date: November 12, 2021 Subjective Patient seen at bedside this morning. Patient without complaints of pain in her shoulder or elbow unless she moves it or tries punching something. Denies any fevers, chills, shortness of breath, chest pain. Review of Systems Constitutional: as per Subjective / HPI Physical Exam Constitutional: WD/WN, vitals as above Eyes: PERRL, conjunctivae normal, anicteric sclerae Respiratory: normal respiratory effort, lungs clear to auscultation Cardiovascular: RRR, no murmur, no edema Gastrointestinal (Abdomen): normal bowel sounds, soft, nontender, no hepatosplenomegaly Psychiatric: A+Ox3, euthymic affect Results & Data Results & Data ([facility]) Vital Signs (Past 12 Hours) Vital Signs Temp Pulse Resp BP Pulse Ox 11/14/21 09:27 36.5 C 84 16 120/68 98 11/13/21 23:54 36.7 C 65 16 129/62 97
--- NOTE | 2021-11-14 14:23 | Discharge Summary ---
Date of Service November 14, 2021 Admission HPI Per Admitting Provider The patient is an 86-year-old female with a past medical history including IPMN, degenerative disc disease, hypertension, previous falls, stroke, TIA, parkinsonism, iron deficiency, arthritis, GERD and hyperlipidemia. The patient was walking and fell to the ground just prior to arrival, landing on her left side, and developing immediate left elbow and shoulder pain. Her daughter reports that the patient reported that her legs just got weak, which is happened to her in the past, and she fell to the ground. She denies any head trauma or any other signs of illness. Her daughter reports that there has been COVID-19 mini epidemic at [facility], and is part of her work-up at [facility], the patient is COVID-19 positive without symptoms. X-rays performed noted a left humeral fracture. The patient did receive Tylenol in the ED with only minimally helped pain. She did receive oxycodone 2.5 mg, which helped the pain better, but her daughter reports it made her loopy Admission Exam Per Admitting Provider The patient is awake, alert and oriented 3, well developed and well nourished, normocephalic and atraumatic, lying in bed and in no acute distress. HEENT--PERRL, EOMI, mucous membranes and oropharynx normal. Neck--supple. No JVD. No bruits. Thyroid normal, trachea midline, no adenopathy. Heart--normal S1 and S2. No murmurs, rubs or gallops. Lungs--clear bilaterally, no respiratory distress, no accessory muscle use. Abdomen--normal bowel sounds and soft. Nontender. Nondistended, no hernias or masses, no organomegaly. Extremities--no cyanosis or clubbing. No edema. Dermatologic--normal skin turgor, normal color, no abnormal lymph nodes, no rash. Neurologic--cranial nerves II through XII grossly intact. Rheumatologic--limited exam due to left shoulder and arm pain Psychiatric--normal affect. Principal Diagnosis humerus fracture Discharge Exam Constitutional WD/WN, vitals as above Eyes PERRL, conjunctivae normal, anicteric sclerae Respiratory normal respiratory effort, lungs clear to auscultation Cardiovascular RRR, no murmur, no edema Gastrointestinal (Abdomen) normal bowel sounds, soft, nontender, no hepatosplenomegaly Psychiatric A+Ox3, euthymic affect Discharge Data Allergies Allergy/AdvReac Type Severity Reaction Status Date / Time No Known Allergies Allergy Unverified 11/12/21 17:27 Consultations 11/12/21 19:25 ED Decision to Admit Stat 11/12/21 20:20 Consult Orthopedic Surgery Routine Ordered Studies 11/12/21 15:18 CT head/brain wo con Stat IMPRESSION: There is no hemorrhage, mass effect, or evidence of acute territorial ischemia by CT criteria. Hospital Course (1) Fall: (2) Closed fracture of left proximal humerus: (3) Hypertension: (4) Hyperlipidemia: (5) Inflammatory arthritis: (6) Parkinsonism: (7) GERD (gastroesophageal reflux disease): 86 year old female w/ past medical history of IPMN, degenerative disc disease, hypertension, previous falls, stroke, TIA, parkinsonism, iron deficiency, arthritis, GERD and hyperlipidemia admitted for recent fall. Closed left humeral fracture/Fall: -s/p fall -XR humerus displaced fracture present through the anatomic neck of the humerus with displacement of the humeral head posteriorly in relation to the humeral neck. -XR L shoulder Acute comminuted, impacted and displaced proximal left humeral fracture with moderate soft tissue swelling and probable joint effusion -CT head w/o acute abnormality. -Deconditioning vs COVID fatigue -Orthopedics consulted -Continue sling at all times except bathing and changing clothes along with ice. -Patient may get reasonable function with conservative management but will have some loss of overhead use. -If she wanted maximal function then it would be required to have a reverse total shoulder replacement. -Follow up with Dr. Herrera in 2 weeks. COVID-19: -Patient COVID+ upon admission. -Patient hemodynamically stable, no O2 requirement. -No need for COVID treatment at this time. Total Time Total Time Spent Total Time Spent (In Minutes): <30 Discharge Plan Discharge Items Patient Disposition: Personal Assisted Reason For Visit: CLOSE LEFT HUMERAL FRACTURE Discharge Diagnosis: L humeral fracture s/p fall Condition on Discharge: Good Activity: Per Instructions section Non-emergency contact: Primary Care Provider Call non-emergency contact if: your symptoms worsen, your pain is worsening and your temperature is above 101 Follow-up/Referrals: Carson Osorio M.D. [Physician] - 11/22/21 2:30 pm (2 weeks ) [facility] [Primary Care Provider] - Diet: Regular Addtl Attending Provider Instructions: A discharge summary will be sent to your primary care physician to ensure continuity of care. You came into the hospital for a fall you sustained while at home. Upon entry to the hospital it was found that you had a fracture of your left humerus. You were seen by the orthopedic team and recommended a sling for conservative management of the fracture. Please wear the sling at all times except for bathing and changing clothes. You will follow up with Dr. Herrera in 2 weeks for progression of the fracture healing. While you were hospitalized you were also found to test positive for COVID-19. During your hospital stay you remained stable and your vital signs looked good without any breathing difficulties or fevers. The fall you sustained may have been due to general weakness or weakness from the COVID- 19 infection. Please exercise precaution when moving about and be sure to work with PT/OT for return to baseline to minimize falls. Follow-up: * You should be seen by your primary physician within the next week. * You should follow up with orthopedics in 2 weeks for checking on the healing of your fracture. Medications: Your medication list has been reviewed and reconciled upon discharge to ensure accuracy and continuity of care. An updated list of all your medications is included with your hospital discharge paperwork. Please review this list closely, and make note of any changes. Take your medications as instructed; do not skip a dose of your medicines. Make sure all of your doctors know every medicine you are taking (including tkeg-zqt-wiritam medicines, vitamins, and supplements). let your primary care provider know before taking any new medicines because some of these may interact with your current medications, or may make your symptoms worse. CONTACT YOUR PRIMARY CARE PROVIDER if you experience any of the following: * Fevers or shaking chills * Shortness of breath not relieved by inhalers, fainting * Sudden abdominal distension not relieved by catheterization. * Difficulty following your treatment plan, or difficulty taking medications CALL 911 OR GO TO THE EMERGENCY DEPARTMENT if you experience any of the following: * Sudden, severe abdominal pain or nausea/vomiting * Severe chest pain, or chest pain that radiates (moves) to your jaw or arm * Sudden, severe shortness of breath or difficulty breathing It was was our pleasure taking care of you here at [facility] . Thank you for allowing us to participate in your care. Pending Studies at Discharge: No Stand-Alone Forms: My [facility], Smoking Cessation Skilled Items Patient informed of condition?: Yes DNR: No Discharge Level of Care: Other Communicable Disease: Yes (COVID-19) Discharge Prognosis: Stable Lines: None Urinary Catheter: No Medications and DC Order Prescriptions: Continued calcium carbonate-vitamin D3 600 mg(1,500mg) -200 unit tablet 1 tab PO BID RF: 0 multivitamin Tablet 1 tab PO DAILY RF: 0 atenolol 25 mg tablet 12.5 mg PO DAILY RF: 0 simvastatin 40 mg tablet 40 mg PO QPM RF: 0 sennosides [Senna Lax] 8.6 mg tablet 17.2 mg PO DAILY PRN (Reason: Constipation) RF: 0 acetaminophen [Mapap (acetaminophen)] 325 mg tablet 650 mg PO BID PRN (Reason: pain) RF: 0 polyethylene glycol 3350 [Miralax] 17 gram powder in packet 17 g PO DAILY PRN (Reason: Constipation) RF: 0 docusate sodium [Colace] 100 mg capsule 200 mg PO HS PRN (Reason: Constipation) RF: 0 prednisone 10 mg tablet 10 mg PO DAILY RF: 0 carbidopa-levodopa 25-250 mg tablet 0.5 tab PO TID RF: 0 tramadol 50 mg tablet 50 mg PO Q4H PRN (Reason: Pain) RF: 0 pantoprazole 40 mg tablet,delayed release (DR/EC) 40 mg PO DAILY RF: 0 ferrous sulfate 325 mg (65 mg iron) Tablet 325 mg PO DAILY RF: 0 hydroxychloroquine 200 mg tablet 200 mg PO DAILY RF: 0 Discharge Orders: Discharge Order (Routine); Ordered 11/14/21 Ordered By: Abhishek Castaneda Admission Data Admit Date/Time: 11/12/21 20:20 Attending Provider: Aldair Howe Admit Provider: Aly Souza Primary Care Provider: [facility]WELL CORNELL [facility] Other Providers: Carson Osorio ; Aly Souza Other Interventions: Discharge Summary Assessment (RN) Last Done: 11/14/21 14:25 Supervising Physician Co-Signing Physician Notes I personally examined the patient and verified all sweeney points of history and exam, discussed case, and agree with decision making with Dr Castaneda feeling OK ibuprofen helping more vitals ntoed nad heent nc at mmm L arm in sling no focal neuro deficits skin no rashes no pallor or icterus fall/weakness - deconditioning vs covid mediated fatigue vs both. PT/OT eval and treat - ok to return to [facility], outpt PT there. covid - other than possibly fatigue/weakness - asymptomatic humerus fracture - added ibuprofen for pain control. helped more. continue sling. outpt ortho f/u dvt proph - lovenox utilized throughout her stay otherwise as above Resident Activity Tracking Resident Involvement: Resident Care Provided Care Provided: Adult Hospital Medicine
--- NOTE | 2021-11-14 18:13 | Billing Data ---
Date of Service November 14, 2021 Coding Level of Care Code D/C DAY MANAGEMENT <30 MINS
== END 2021-11-14 14:59 | disposition home or self-care (01) ==
LOC: ED 14:21 → 3N 14:21 → SUATTDRO 20:20 → 3N 23:00